=== PATIENT | female | born 1945 | race American Indian/Alaskan Native ===

== ENCOUNTER 2017-08-04 17:42 | Inpatient (IN) | payer MEDICARE, OTHER ==
[2017-08-04 17:43] VITALS: BMI 25.6
[2017-08-04] MEDS ORDERED: DiphenhydrAMINE 50 mg/ml Inj IVP STA (18:25)
[2017-08-04] MEDS ORDERED: Famotidine 20mg/50ml 20 MG/50 ML BAG IVPB STA (18:26)
--- NOTE | 2017-08-04 18:27 | ED PDOC ---
Arrival/HPI - General Chief Complaint: Abnormal Skin Integrity Time Seen by Provider: 08/04/17 18:23 Historian: Patient, Family (son) - History of Present Illness Narrative History of Present Illness (Text): 08/04/17 18:27 This 72 yo female with PMH htn, dm, s/p coronary stents, presents to this ED c/ o generalized rash, and b/l lower leg redness x 2 weeks. Patient right lower leg redness is painful. Patient admits rash is pruritic, and she has been scratching skin very often. Patient denies sob, cp, fever, recent travel, or sick contact. Time/Duration: Other (2 weeks) Context: Home Past Medical History - Provider Review Nursing Documentation Reviewed: Yes - Reproductive Menopause: Yes - Cardiac Hx Cardiac Disorders: Yes (S/P STENT) Hx Hypertension: Yes - Pulmonary Hx Bronchitis: Yes - Neurological Hx Neurological Disorder: No - HEENT Hx HEENT Disorder: Yes (GLAUCOMA) Hx Glaucoma: Yes - Renal Hx Renal Disorder: No - Endocrine/Metabolic Hx Diabetes Mellitus Type 2: Yes - Hematological/Oncological Hx Anemia: Yes Hx Blood Transfusions: Yes - Integumentary Hx Dermatological Disorder: No - Musculoskeletal/Rheumatological Hx Arthritis: Yes (BACK AND KNEE PAIN; NECK PAIN) - Gastrointestinal Hx Gastrointestinal Disorders: Yes (HEMORRHOIDS,CONSTIPATION) Hx Constipation: Yes - Genitourinary/Gynecological Hx Genitourinary Disorders: No - Psychiatric Hx Psychophysiologic Disorder: No Hx Substance Use: No - Surgical History Hx Hysterectomy: Yes - Anesthesia Hx Anesthesia: Yes Hx Anesthesia Reactions: No Family/Social History - Physician Review Nursing Documentation Reviewed: Yes Family/Social History: Other (non-contributory) Smoking Status: Smoker Currrent Status Unknown Hx Alcohol Use: No Hx Substance Use: No Allergies/Home Meds Allergies/Adverse Reactions: Allergies No Known Allergies Allergy (Verified 08/04/17 17:58) Home Medications: Home Meds Medication Instructions Recorded Confirmed Losartan Potassium [Cozaar] 100 mg PO DAILY 01/30/17 08/04/17 Omeprazole Magnesium [Prilosec Otc] 20 mg PO DAILY PRN 01/30/17 08/04/17 Rosuvastatin Calcium 10 mg PO HS 01/30/17 08/04/17 amLODIPine [Norvasc] 10 mg PO DAILY 01/30/17 08/04/17 cloNIDine [Catapres] 0.3 mg PO BID 01/30/17 08/04/17 Furosemide [Lasix] 20 mg PO DAILY 01/31/17 08/04/17 Review of Systems - Review of Systems Constitutional: Normal. absent: Fatigue, Weight Change, Fevers Eyes: Normal ENT: Normal Respiratory: Normal. absent: SOB, Cough Cardiovascular: Normal. absent: Chest Pain, Palpitations Gastrointestinal: Normal. absent: Abdominal Pain, Nausea, Vomiting Genitourinary Female: Normal. absent: Dysuria, Frequency, Hematuria Musculoskeletal: Normal Skin: Rash, Pruritis, Cellulitis Neurological: Normal. absent: Headache, Dizziness, Focal Weakness, Gait Changes , Speech Changes, Facial Droop, Disequilibrium Endocrine: Normal Hemo/Lymphatic: Normal Psychiatric: Normal Physical Exam Vital Signs Temp Pulse Resp BP Pulse Ox 08/04/17 19:54 98.1 F 08/04/17 19:53 80 20 180/65 H 99 08/04/17 18:10 99.4 F 88 20 180/72 H 100 Temperature: Afebrile Blood Pressure: Hypertensive Pulse: Regular Respiratory Rate: Normal Appearance: Positive for: Well-Appearing, Non-Toxic, Comfortable Pain Distress: None Mental Status: Positive for: Alert and Oriented X 3 - Systems Exam Head: Present: Atraumatic, Normocephalic Pupils: Present: PERRL Extroacular Muscles: Present: EOMI Conjunctiva: Present: Normal Mouth: Present: Moist Mucous Membranes Neck: Present: Normal Range of Motion Respiratory/Chest: Present: Clear to Auscultation, Good Air Exchange, Respiratory Distress. No: Accessory Muscle Use, Wheezes, Decreased Breath Sounds, Rales, Retracting, Rhonchi Cardiovascular: Present: Regular Rate and Rhythm, Normal S1, S2. No: Murmurs Abdomen: No: Tenderness Upper Extremity: Present: Normal Inspection, Normal ROM, NORMAL PULSES, Neurovascularly Intact, Capillary Refill < 2s Lower Extremity: Present: CALF TENDERNESS, NORMAL PULSES, Normal ROM, Tenderness , Swelling, Erythema, Temperature Abnormalties, Neurovascularly Intact, Capillary Refill < 2 s. No: Edema Neurological: Present: GCS=15, CN II-XII Intact, Speech Normal Skin: Present: Warm, Dry, Normal Color, Erythematous (b/l lower leg. r>l). No : Rashes Psychiatric: Present: Alert, Oriented x 3, Normal Insight, Normal Concentration Medical Decision Making ED Course and Treatment: 08/04/17 21:07 Dr. Ovalle spoke with Dr. Tobias covering physician for Dr. Vela regarding plan for observation admission. Re-evaluation Time: 21:00 Reassessment Condition: Re-examined, Improving,but remains with symptoms - Lab Interpretations Microbiology Results: Microbiology Results 08/04/17 18:30 Blood Blood Culture - Preliminary NO GROWTH AFTER 4 DAYS 08/04/17 18:00 Blood Blood Culture - Preliminary NO GROWTH AFTER 4 DAYS Lab Results: 08/06/17 06:39 08/06/17 06:39 Lab Results 08/06/17 11:48: Gastrin 68 08/06/17 11:48: Homocysteine 20.3 H, Sm (Ayala) Antibody <1.0, Anti-Ayala Interpret Negative, Double Strand DNA Ab <1 08/06/17 07:27: Methylmalonic Acid 196, Anti-Parietal Cell Ab Negative, Intrins Factor Block Ab Negative 08/06/17 07:00: Retic Count 1.17 08/06/17 06:39: Sodium 140, Chloride 110 H, Potassium 4.0, Carbon Dioxide 21, Anion Gap 13, BUN 15, Creatinine 1.4, Est GFR ( Amer) 44, Est GFR (Non- Af Amer) 37, Random Glucose 92, Calcium 8.8, Magnesium 1.7, Total Bilirubin 0.4 , Direct Bilirubin 0.3, AST 23, ALT 16, Alkaline Phosphatase 76, Total Protein 6.5, Albumin 3.3, Globulin 3.2, Albumin/Globulin Ratio 1.0 L 08/06/17 06:39: WBC 11.0, RBC 3.40 L, Hgb 8.8 L, Hct 27.0 L, MCV 79.4 L, MCH 25.9, MCHC 32.6, RDW 15.5 H, Plt Count 304, MPV 9.4, Gran % 74.2 H, Lymph % ( Auto) 14.5 L, [place] % (Auto) 5.5, Eos % (Auto) 5.7 H, Baso % (Auto) 0.1, Gran # 8.15 H, Lymph # 1.6, [place] # 0.6, Eos # 0.6, Baso # 0.01 08/05/17 17:55: WBC 11.5 H, RBC 3.54, Hgb 9.4 L, Hct 28.2 L, MCV 79.7 L, MCH 26.6, MCHC 33.3, RDW 15.0 H, Plt Count 331, MPV 9.0, Gran % 73.3 H, Lymph % ( Auto) 14.0 L, [place] % (Auto) 6.2 H, Eos % (Auto) 6.3 H, Baso % (Auto) 0.2, Gran # 8.43 H, Lymph # 1.6, [place] # 0.7 H, Eos # 0.7, Baso # 0.02 08/05/17 17:55: Hemoglobin A 97.1, Hemoglobin A2 1.9, Hemoglobin C 0.0, Hemoglobin F () <1.0, Hemoglobin S 0.0, Variant Hemoglobin 0.0, Hemoglobinopathy Red Blood Count 3.51 L, Hemoglobinopathy Hct 28.9 L, Hemoglobinopathy Hgb 9.6 L, Hemoglobinopathy MCV 82.2, Hemoglobinopathy MCH 27.2 , Hemoglobinopathy RDW 16.4 H, Hemoglobinopathy Interp See note 08/05/17 17:55: Free T3 pg/mL 3.50 08/05/17 17:55: Fructosamine 199 08/05/17 15:51: Erythropoietin 32.3 H 08/05/17 15:50: Urine Color Straw, Urine Appearance Clear, Urine pH 6.0, Ur Specific [place] 1.010, Urine Protein 30 H, Urine Glucose (UA) Negative, Urine Ketones Negative, Urine Blood Trace-lysed H, Urine Nitrate Negative, Urine Bilirubin Negative, Urine Urobilinogen 0.2, Ur Leukocyte Esterase Negative, Urine RBC 0 - 2, Urine WBC 0 - 2, Ur Epithelial Cells 4 - 5, Urine Bacteria Small 08/05/17 15:50: Stool Occult Blood Positive H 08/05/17 15:00: Sickle Cell Screen Negative 08/05/17 13:41: Hemoglobin A1c 6.6 H 08/05/17 13:20: Vitamin B12 299, Folate 6.4 08/05/17 13:14: Total Protein (PEP) 7.2, Albumin (PEP) 3.5 L, Lmhmh-4-Xrbavxqev 0.4 H, Nbagn-8-Njgypjiec 0.9, Morl-1-Flefbvvr 0.5, Eesk-6-Jktudeyp 0.5, Gamma Globulins 1.3, Abnorm Protein Band 1 TEST NOT PERFORMED, Abnorm Protein Band 2 TEST NOT PERFORMED, Abnorm Protein Band 3 TEST NOT PERFORMED, GOMEZ & SPEP Interp See note, Serum Immunofixation Detected H 08/05/17 12:44: Lactic Acid 1.5 08/05/17 12:44: Procalcitonin 0.06 L 08/05/17 07:00: Free T4 1.27, Thyroxine (T4) 9.0, Total T3 1.27 08/05/17 06:00: Sodium 142, Chloride 111 H, Potassium 3.4 L, Carbon Dioxide 21, Anion Gap 13, BUN 16, Creatinine 1.5 H, Est GFR ( Amer) 41, Est GFR (Non- Af Amer) 34, Random Glucose 109, Calcium 8.5, Total Bilirubin 0.2, AST 28, ALT 14, Alkaline Phosphatase 78, Total Protein 6.8, Albumin 3.4, Globulin 3.4, Albumin/Globulin Ratio 1.0 L 08/05/17 06:00: WBC 9.7, RBC 3.09 L, Hgb 7.9 L, Hct 24.4 L, MCV 79.0 L, MCH 25.6 , MCHC 32.4, RDW 15.7 H, Plt Count 399, MPV 9.6, Gran % 74.9 H, Lymph % (Auto) 12.0 L, [place] % (Auto) 6.7 H, Eos % (Auto) 6.2 H, Baso % (Auto) 0.2, Gran # 7.29 H, Lymph # 1.2, [place] # 0.7 H, Eos # 0.6, Baso # 0.02 08/04/17 22:30: pO2 33, VBG pH 7.41, VBG pCO2 35.0 L, VBG HCO3 22.2, VBG Total CO2 23.3, VBG O2 Sat (Calc) 74.3 H, VBG Base Excess -1.9 L, VBG Potassium 3.5 L , Sodium 140.0, Chloride 110.0 H, Glucose 95, Lactate 1.4, FiO2 21.0, Venous Blood Potassium 3.5 L 08/04/17 20:30: Blood Type A POSITIVE, Antibody Screen Negative, Crossmatch See Detail, BBK History Checked Patient has bt 08/04/17 18:30: PT 11.4, INR 1.06, APTT 32.1 H 08/04/17 18:30: C-React Prot High Sens > 15.00 H 08/04/17 18:30: pO2 46, VBG pH 7.34, VBG pCO2 45.0, VBG HCO3 24.3, VBG Total CO2 25.7, VBG O2 Sat (Calc) 87.3 H, VBG Base Excess -1.7 L, VBG Potassium 3.4 L , Sodium 138.0, Chloride 107.0, Glucose 137 H, Lactate 3.4 H, FiO2 21.0, Venous Blood Potassium 3.4 L 08/04/17 18:30: Sodium 141, Chloride 103, Potassium 3.7, Carbon Dioxide 24, Anion Gap 18, BUN 23 H, Creatinine 1.8 H, Est GFR ( Amer) 33, Est GFR ( Non-Af Amer) 28, Random Glucose 127 H, Calcium 9.4, Total Bilirubin 0.3, AST 35 , ALT 19, Alkaline Phosphatase 86, Total Protein 8.0, Albumin 4.2, Globulin 3.9 , Albumin/Globulin Ratio 1.1 08/04/17 18:30: WBC 10.2, RBC 3.45 L, Hgb 9.0 L, Hct 27.5 L, MCV 79.7 L, MCH 26.1, MCHC 32.7, RDW 15.6 H, Plt Count 436, MPV 9.2, Gran % 75.5 H, Lymph % ( Auto) 14.0 L, [place] % (Auto) 5.4, Eos % (Auto) 4.9, Baso % (Auto) 0.2, Gran # 7.69 H, Lymph # 1.4, [place] # 0.6, Eos # 0.5, Baso # 0.02, ESR 98 H 08/04/17 17:00: Hemoglobin A1c 6.7 H 08/04/17 17:00: Free T4 1.12, TSH 3rd Generation 1.95 08/04/17 17:00: Iron 34 L, TIBC 392, % Saturation 9 L 08/04/17 17:00: Uric Acid 10.8 H I have reviewed the lab results: Yes Interpretation: Abnormal lab values - RAD Interpretation Narrative RAD Interpretations (Text): 08/04/17 20:09 HISTORY: Leg pain and swelling. Evaluate for DVT PHYSICIAN(S): Roddy Ayala MD. TECHNIQUE: Duplex sonography and color-flow Doppler with graded compression were used to evaluate the deep venous systems of both lower extremities. FINDINGS: The visualized deep venous systems of both lower extremities are sonographically normal and compressible. Normal wave forms and augmentation are seen. There is no sonographic evidence for deep venous thrombosis in the visualized segments of both lower extremities. IMPRESSION: No sonographic evidence for deep venous thrombosis in the visualized segments of both lower extremities. Radiology Orders: 08/04/17 18:25 DUPLEX LOWER EXTRM VEIN BILAT [US] Stat 08/05/17 07:17 RENAL [US] Routine 08/05/17 08:14 FOOT LEFT 3 VIEWS ROUTINE [RAD] Urgent 08/05/17 10:33 LOWER EXT ART NON-INV COMPL [US] Routine 08/05/17 15:21 CHEST TWO VIEWS (PA/LAT) [RAD] Urgent - Medication Orders Current Medication Orders: Allopurinol (Zyloprim) 100 mg PO DAILY [facility] Last Admin: 08/09/17 10:02 Dose: 100 mg Amlodipine Besylate (Norvasc) 10 mg PO DAILY [facility] Last Admin: 08/09/17 10:01 Dose: 10 mg MAR Blood Pressure Document 08/09/17 10:01 SD (Rec: 08/09/17 10:[address] [id number]) Blood Pressure Blood Pressure (100/60-150/90) 145/88 Arformoterol Tartrate (Brovana) 15 mcg IH [id number] [facility] Last Admin: 08/09/17 07:26 Dose: Not Given Non-Admin Reason: Patient Refused Atorvastatin Calcium (Lipitor) 40 mg PO HS [facility] Last Admin: 08/08/17 21:58 Dose: 40 mg Budesonide (Pulmicort Respules) 0.5 mg IH [id number] [facility] Last Admin: 08/09/17 07:26 Dose: Not Given Non-Admin Reason: Patient Refused Clonidine HCl (Catapres) 0.3 mg PO BID [facility] Last Admin: 08/09/17 10:01 Dose: 0.3 mg Cyanocobalamin (Vitamin B12 1000 Mcg/Ml Inj) 1,000 mcg IM DAILY [facility] Stop: 08/15/17 10:01 Last Admin: 08/09/17 10:01 Dose: 1,000 mcg IM Administration Charges Document 08/09/17 10:01 SD (Rec: 08/09/17 10:[address] [id number]) Injection Site MAR Injection Site Left Arm Charges for Administration # of IM Administrations 1 Desoximetasone (Topicort 0.25%) 0 ea TOP BID [facility] Last Admin: 08/09/17 10:02 Dose: 1 applic Diphenhydramine HCl (Benadryl) 25 mg PO Q6 PRN PRN Reason: Itching / Pruritus Last Admin: 08/09/17 10:01 Dose: 25 mg Folic Acid (Folic Acid) 1 mg PO DAILY [facility] Last Admin: 08/09/17 10:02 Dose: 1 mg Heparin Sodium (Porcine) (Heparin) 5,000 units SC Q8 [facility] PRN Reason: Protocol Last Admin: 08/09/17 13:23 Dose: Not Given Non-Admin Reason: Patient Refused Lactic Acid (Lac-Hydrin 12% Cream (140 G)) 0 ea TOP TID [facility] Last Admin: 08/09/17 13:23 Dose: 1 applic Losartan Potassium (Cozaar) 100 mg PO DAILY [facility] Last Admin: 08/09/17 10:02 Dose: 100 mg Methimazole (Tapazole) 5 mg PO DAILY [facility] Last Admin: 08/09/17 10:01 Dose: 5 mg (Fluticasone/Vilanterol [Breo Ellipta 200-25 Mcg Inh] 1 Each) 1 each IH DAILY [facility] Last Admin: 08/09/17 10:02 Dose: Pantoprazole Sodium (Protonix Ec Tab) 40 mg PO ACBD [facility] Last Admin: 08/09/17 10:01 Dose: 40 mg Potassium Chloride (K-Dur 20 Meq Er Tab) 20 meq PO BRK [facility] Last Admin: 08/09/17 10:01 Dose: 20 meq Prednisone (Prednisone Tab) 40 mg PO ACB [facility] Stop: 08/11/17 07:31 Last Admin: 08/09/17 10:01 Dose: 40 mg Pyridoxine HCl (Vitamin B6 50 Mg Tab) 25 mg PO DAILY [facility] Last Admin: 08/09/17 10:13 Dose: 25 mg Discontinued Medications Acetaminophen (Tylenol 325mg Tab) 650 mg PO Q6H [facility] Stop: 08/06/17 14:31 Last Admin: 08/06/17 16:45 Dose: 650 mg MAR Pain/Vitals Document 08/06/17 16:45 Y (Rec: 08/06/17 16:45 [place] [id number]) Pain Reassessment Is This A Pain ReAssessment? No Sleep Is patient sleeping during reassessment? No Presence of Pain Presence of Pain No Atorvastatin Calcium (Lipitor) 40 mg PO DAILY [facility] Last Admin: 08/05/17 10:11 Dose: 40 mg Diphenhydramine HCl (Benadryl) 25 mg IVP STAT STA Stop: 08/04/17 18:26 Last Admin: 08/04/17 19:17 Dose: 25 mg IVP Administration Document 08/04/17 19:17 [place] (Rec: 08/04/17 19:17 [id number]) Charges for Administration # of IVP Administrations 1 Diphenhydramine HCl (Benadryl) 25 mg PO HS PRN PRN Reason: Insomnia Last Admin: 08/04/17 22:21 Dose: 25 mg Diphenhydramine HCl (Benadryl) 25 mg PO ONCE ONE Stop: 08/06/17 01:56 Last Admin: 08/06/17 02:25 Dose: 25 mg Diphenhydramine HCl (Benadryl) 25 mg IVP Q6H [facility] Stop: 08/06/17 14:31 Last Admin: 08/06/17 16:44 Dose: 25 mg IVP Administration Document 08/06/17 16:44 Y (Rec: 08/06/17 16:45 [place] [id number]) Charges for Administration # of IVP Administrations 1 Diphenhydramine HCl (Benadryl) 25 mg PO Q6 PRN PRN Reason: Itching / Pruritus Last Admin: 08/06/17 20:43 Dose: 25 mg Diphenhydramine HCl (Benadryl) 25 mg PO Q8 PRN PRN Reason: Itching / Pruritus Last Admin: 08/09/17 00:00 Dose: 25 mg Furosemide (Lasix) 20 mg PO DAILY [facility] Last Admin: 08/05/17 10:11 Dose: 20 mg MAR Blood Pressure Document 08/05/17 10:11 Y (Rec: 08/05/17 10:14 [place] [id number]) Blood Pressure Blood Pressure (100/60-150/90) 149/51 Furosemide (Lasix) 40 mg IVP ONCE ONE Stop: 08/07/17 06:55 Last Admin: 08/07/17 07:10 Dose: 40 mg MAR Blood Pressure Document 08/07/17 07:10 BR (Rec: 08/07/17 07:10 [id number] Blood Pressure Blood Pressure (100/60-150/90) 141/60 IVP Administration Document 08/07/17 07:10 BR (Rec: 08/07/17 07:10 [id number] Charges for Administration # of IVP Administrations 1 Hydroxyzine HCl (Atarax) 10 mg PO QID [facility] Last Admin: 08/05/17 10:11 Dose: 10 mg Hydroxyzine HCl (Atarax) 10 mg PO Q6H PRN PRN Reason: Anxiety Last Admin: 08/06/17 00:39 Dose: 10 mg Famotidine (Pepcid 20mg/50ml Premix) 20 mg in 50 mls @ 100 mls/hr IVPB STAT STA Stop: 08/04/17 18:55 Last Admin: 08/04/17 19:17 Dose: 100 mls/hr eMAR Start Stop Document 08/04/17 19:17 [place] (Rec: 08/04/17 19:[address] [id number]) Intravenous Solution Start Date 08/04/17 Start Time 19:17 Piperacillin Sod/Tazobactam Sod (Zosyn 4.5 Gm In Ns 100ml) 4.5 gm in 100 mls @ 200 mls/hr IVPB STAT STA PRN Reason: Protocol Stop: 08/04/17 20:22 Last Admin: 08/04/17 20:20 Dose: 200 mls/hr eMAR Start Stop Document 08/04/17 20:20 HI (Rec: 08/04/17 21:[address] [id number]) Intravenous Solution Start Date 08/04/17 Start Time 20:20 Vancomycin HCl (Vancomycin 1gm) 1 gm in 250 mls @ 167 mls/hr IVPB STAT STA PRN Reason: Protocol Stop: 08/04/17 21:34 Last Admin: 08/04/17 21:02 Dose: 167 mls/hr eMAR Start Stop Document 08/04/17 21:02 [place] (Rec: 08/04/17 21:03 [place] [facility] [id number][place] Intravenous Solution Start Date 08/04/17 Start Time 21:03 Sodium Chloride (Sodium Chloride 0.9%) 1,000 mls @ 999 mls/hr IV .Q1H1M STA Stop: 08/04/17 21:20 Last Admin: 08/04/17 21:03 Dose: 999 mls/hr eMAR Start Stop Document 08/04/17 21:03 HI (Rec: 08/04/17 21:[address] [id number]) Intravenous Solution Start Date 08/04/17 Start Time 21:03 Piperacillin Sod/Tazobactam Sod (Zosyn 3.375 In Ns 100ml) 100 mls @ 200 mls/hr IVPB Q6 [facility] PRN Reason: Protocol Stop: 08/05/17 06:29 Last Admin: 08/05/17 05:55 Dose: 200 mls/hr eMAR Start Stop Document 08/05/17 05:55 KT (Rec: 08/05/17 05:55 KT [id number]) Intravenous Solution Start Date 08/05/17 Start Time 06:00 End Date 08/05/17 End time 06:30 Total Infusion Time 30 Ceftriaxone Sodium (Rocephin 1 Gram Ivpb) 1 gm in 100 mls @ 100 mls/hr IVPB DAILY [facility] PRN Reason: Protocol Stop: 08/13/17 10:36 Last Admin: 08/09/17 10:00 Dose: 100 mls/hr eMAR Start Stop Document 08/09/17 10:00 SD (Rec: 08/09/17 10:01 [place] [facility] [id number][place] Intravenous Solution Start Date 08/09/17 Start Time 10:00 End Date 08/09/17 End time 10:30 Total Infusion Time 30 Potassium Chloride (Potassium Chloride 20 Meq/100 Ml) 20 meq in 100 mls @ 50 mls/hr IVPB Q2H [facility] Stop: 08/05/17 16:29 Last Admin: 08/05/17 21:32 Dose: 50 mls/hr eMAR Start Stop Document 08/05/17 21:32 KT (Rec: 08/05/17 21:32 [place] [facility] [id number]) Intravenous Solution Start Date 08/05/17 Start Time 21:35 End Date 08/05/17 End time 22:35 Total Infusion Time 60 Iron Sucrose 200 mg/ Sodium (Chloride) 110 mls @ 110 mls/hr IVPB DAILY [facility] Stop: 08/07/17 10:59 Last Admin: 08/07/17 10:26 Dose: 110 mls/hr eMAR Start Stop Document 08/07/17 10:26 SD (Rec: 08/07/17 10:[address] [id number]) Intravenous Solution Start Date 08/07/17 Start Time 11:30 End Date 08/07/17 End time 12:30 Total Infusion Time 60 Magnesium Sulfate 2 gm/ Sodium (Chloride) 104 mls @ 102 mls/hr IVPB Q3H [facility] Stop: 08/08/17 12:17 Last Admin: 08/08/17 12:51 Dose: 102 mls/hr eMAR Start Stop Document 08/08/17 12:51 SD (Rec: 08/08/17 12:[address] [id number]) Intravenous Solution Start Date 08/08/17 Start Time 12:51 End Date 08/08/17 End time 13:51 Total Infusion Time 60 Losartan Potassium (Cozaar) 100 mg PO ONCE ONE Stop: 08/04/17 21:58 Last Admin: 08/04/17 22:21 Dose: 100 mg Pantoprazole Sodium (Protonix Ec Tab) 40 mg PO ACB PRN PRN Reason: [place] Pantoprazole Sodium (Protonix Ec Tab) 40 mg PO ACB PRN PRN Reason: [place] Pantoprazole Sodium (Protonix Ec Tab) 40 mg PO ACB [facility] Last Admin: 08/08/17 08:34 Dose: Disposition/Present on Arrival - Present on Arrival Any Indicators Present on Arrival: No History of DVT/PE: No History of Uncontrolled Diabetes: No Urinary Catheter: No History of Decub. Ulcer: No History Surgical Site Infection Following: None - Disposition Have Diagnosis and Disposition been Completed?: Yes Diagnosis: Cellulitis of lower leg Disposition: HOSPITALIZED Disposition Time: 21:00 Patient Plan: Admission Patient Problems: Current Active Problems Problem Status Onset Cellulitis of lower leg Acute Condition: STABLE
[2017-08-04 18:46] LABS: BASO # 0.02 K/mm3 (0.0-2.0); BASO % 0.2 % (0.0-3.0); EOS # 0.5 (0.0-0.7); EOS % 4.9 % (1.5-5.0); GRAN # 7.69 (1.4-6.5); GRAN % 75.5 % (50.0-68.0); HEMATOCRIT 27.5 % (36.0-48.0); LYMPH # 1.4 (1.2-3.4); MEAN CELL VOLUME 79.7 fl (80.0-105.0); MEAN CORPUSCULAR HEMOGLOBIN 26.1 pg (25.0-35.0); MEAN CORPUSCULAR HGB CONC 32.7 g/dl (31.0-37.0); MEAN PLATELET VOLUME 9.2 fl (7.0-11.0); MONO # 0.6 (0.1-0.6); MONO % 5.4 % (1.0-6.0); RED CELL DISTRIBUTION WIDTH 15.6 % (11.5-14.5); WHITE BLOOD COUNT 10.2 10^3/ul (4.5-11.0)
[2017-08-04 18:54] LABS: VENOUS BLOOD GAS BASE EXCESS -1.7 mmol/L (0.0-2.0); VENOUS BLOOD PH 7.34 (7.32-7.43)
[2017-08-04 19:16] LABS: ALB/GLOB RATIO 1.1 (1.1-1.8); BILIRUBIN,TOTAL 0.3 mg/dL (0.2-1.3); CALCIUM 9.4 mg/dL (8.4-10.5); POTASSIUM 3.7 mmol/L (3.6-5.0)
[2017-08-04] MEDS ORDERED: Piperacill/Tazo 4.5gm in NS 4.5 GM/100 ML BAG IVPB STA (19:53)
[2017-08-04] MEDS ORDERED: Vancomycin 1gm in NS 250ml 1 GM/250 ML BAG IVPB STA (20:05)
[2017-08-04 20:15] LABS: INR 1.06 (0.93-1.08); PARTIAL THROMBOPLASTIN TIME 32.1 Seconds (23.7-30.8)
[2017-08-04] MEDS ORDERED: Sodium Chloride 0.9% 1,000 ML IV STA (20:20)
[2017-08-04] MEDS ORDERED: Pantoprazole 40 mg EC Tab PO PRN ×2 (21:52→21:54)
[2017-08-04 22:46] LABS: VENOUS BLOOD GAS BASE EXCESS -1.9 mmol/L (0.0-2.0); VENOUS BLOOD PH 7.41 (7.32-7.43)
[2017-08-04 22:53] LABS: IRON 34 ug/dL (45-180)
[2017-08-04 22:58] LABS: FREE T4 1.12 ng/dL (0.78-2.19)
[2017-08-04 23:12] LABS: THYROID STIMULATING HORMONE 1.95 mIU/mL (0.46-4.68)
[2017-08-05] MEDS: Piperacillin/Tazobact 3.375 gm 100 ML IVPB SCH ×2 (00:04→05:55)
[2017-08-05] MEDS ORDERED: Albuterol-Ipratrop 3 mg / 0.5 (3 ml) UD IH SCH (02:00)
[2017-08-05 06:33] LABS: BASO # 0.02 K/mm3 (0.0-2.0); BASO % 0.2 % (0.0-3.0); EOS # 0.6 (0.0-0.7); EOS % 6.2 % (1.5-5.0); GRAN # 7.29 (1.4-6.5); GRAN % 74.9 % (50.0-68.0); HEMATOCRIT 24.4 % (36.0-48.0); LYMPH # 1.2 (1.2-3.4); MEAN CORPUSCULAR HEMOGLOBIN 25.6 pg (25.0-35.0); MEAN CORPUSCULAR HGB CONC 32.4 g/dl (31.0-37.0); MEAN PLATELET VOLUME 9.6 fl (7.0-11.0); MONO # 0.7 (0.1-0.6); MONO % 6.7 % (1.0-6.0); RED CELL DISTRIBUTION WIDTH 15.7 % (11.5-14.5); WHITE BLOOD COUNT 9.7 10^3/ul (4.5-11.0)
[2017-08-05 06:35] LABS: BILIRUBIN,TOTAL 0.2 mg/dL (0.2-1.3); CALCIUM 8.5 mg/dL (8.4-10.5); POTASSIUM 3.4 mmol/L (3.6-5.0); TOTAL PROTEIN 6.8 g/dL (5.8-8.3)
[2017-08-05] MEDS: Budesonide 0.5 mg/2 ml Inhal Susp UD IH SCH ×2 (07:33→19:46)
[2017-08-05] MEDS: Arformoterol 15 mcg/2 ml Inh Sol IH SCH ×2 (07:33→19:46)
[2017-08-05] MEDS: Potassium Chloride 20 mEq ER Tab PO SCH (08:28)
--- NOTE | 2017-08-05 10:06 | US ---
PROCEDURE: Ultrasound of the Kidneys HISTORY: elevated creatinine COMPARISON: None available. TECHNIQUE: Sonogram of the kidneys. FINDINGS: RIGHT KIDNEY: Measures: 10.0 cm. Normal in size, contour with diffuse increased echogenicity. No stone, solid mass lesion or hydronephrosis visualized. LEFT KIDNEY: Measures: 9.4 cm. Normal in size, contour with diffuse increased echogenicity. No stone, solid mass lesion or hydronephrosis visualized. OTHER FINDINGS: None. IMPRESSION: Medical renal disease.
[2017-08-05] MEDS: methIMAzole 5 MG TAB PO SCH (10:11)
--- NOTE | 2017-08-05 10:24 | RAD ---
PROCEDURE: Left Foot Radiographs. HISTORY: left toe pain COMPARISON: None. FINDINGS: BONES: There is diffuse bone demineralization. There is no acute displaced fracture or bone destruction. Bone alignment is normal. JOINTS: Normal. SOFT TISSUES: Normal. OTHER FINDINGS: None. IMPRESSION: No acute fracture or dislocation.
[2017-08-05] MEDS: cefTRIAXone 1 gm 1 GM/100 ML BAG IVPB SCH (11:14)
--- NOTE | 2017-08-05 13:07 | CP.PCM.CON ---
History of Present Illness - History of Present Illness History of Present Illness: Hematology Consult Referred for anemia. HPI- Ms Murry is 72 y/o F with h/o HTN, DM, HLD, CAD s/p stent, hyperthyroid who was admitted with bilateral lower extremity rash and found to have cellulitis. Currently on antibiotics and her leg swelling is getting better. She has been afebrile here and cultures are pending. Her Hb and 9 on admission and found to be 7.9 today. She denies any bleeding. She is receiving 1 unit PRBC today. As per patient, she had endoscopic work up done in January 2017 and was unremarkable. She denies any h/o rectal bleed or bleeding elsewhere. She denies prior use of iron supplements. She feels weak and gets mild shortness of breath with exertion gentry with activity. Denies chest pain. her appetite is otherwise good and weight is stable. Family and Social history reviewed. Review of Systems - Review of Systems All systems: reviewed and no additional remarkable complaints except (as per HPI ) Past Patient History - Past Medical History & Family History Past Medical History?: Yes - Past Social History Smoking Status: Light Smoker < 10 Cigarettes Daily - CARDIAC Hx Cardiac Disorders: Yes (S/P STENT) Hx Hypertension: Yes - PULMONARY Hx Bronchitis: Yes - NEUROLOGICAL Hx Neurological Disorder: No - HEENT Hx HEENT Problems: Yes (GLAUCOMA) Hx Glaucoma: Yes - RENAL Hx Chronic Kidney Disease: No - ENDOCRINE/METABOLIC Hx Diabetes Mellitus Type 2: Yes - HEMATOLOGICAL/ONCOLOGICAL Hx Anemia: Yes - INTEGUMENTARY Hx Dermatological Problems: No - MUSCULOSKELETAL/RHEUMATOLOGICAL Hx Arthritis: Yes (BACK AND KNEE PAIN; NECK PAIN) Hx Falls: No - GASTROINTESTINAL Hx Gastrointestinal Disorders: Yes (HEMORRHOIDS,CONSTIPATION) - GENITOURINARY/GYNECOLOGICAL Hx Genitourinary Disorders: No - PSYCHIATRIC Hx Psychophysiologic Disorder: No - SURGICAL HISTORY Hx Hysterectomy: Yes - ANESTHESIA Hx Anesthesia: Yes Hx Anesthesia Reactions: No Meds Allergies/Adverse Reactions: Allergies Allergy/AdvReac Type Severity Reaction Status Date / Time No Known Allergies Allergy Verified 08/04/17 17:58 - Medications Medications: Current Medications Amlodipine Besylate (Norvasc) 10 mg PO DAILY [facility] Last Admin: 08/05/17 10:15 Dose: 10 mg Arformoterol Tartrate (Brovana) 15 mcg IH [id number] [facility] Last Admin: 08/05/17 07:33 Dose: 15 mcg Atorvastatin Calcium (Lipitor) 40 mg PO DAILY [facility] Last Admin: 08/05/17 10:11 Dose: 40 mg Budesonide (Pulmicort Respules) 0.5 mg IH [id number] [facility] Last Admin: 08/05/17 07:33 Dose: 0.5 mg Clonidine HCl (Catapres) 0.3 mg PO BID [facility] Last Admin: 08/05/17 10:15 Dose: 0.3 mg Hydroxyzine HCl (Atarax) 10 mg PO Q6H PRN PRN Reason: Anxiety Ceftriaxone Sodium (Rocephin 1 Gram Ivpb) 1 gm in 100 mls @ 100 mls/hr IVPB DAILY [facility] PRN Reason: Protocol Stop: 08/13/17 10:36 Last Admin: 08/05/17 11:14 Dose: 100 mls/hr Potassium Chloride (Potassium Chloride 20 Meq/100 Ml) 20 meq in 100 mls @ 50 mls/hr IVPB Q2H [facility] Stop: 08/05/17 16:29 Iron Sucrose 200 mg/ Sodium (Chloride) 110 mls @ 110 mls/hr IVPB DAILY [facility] Stop: 08/07/17 10:59 Losartan Potassium (Cozaar) 100 mg PO DAILY [facility] Last Admin: 08/05/17 10:15 Dose: 100 mg Methimazole (Tapazole) 5 mg PO DAILY [facility] Last Admin: 08/05/17 10:11 Dose: 5 mg Pantoprazole Sodium (Protonix Ec Tab) 40 mg PO ACB PRN PRN Reason: [place]TH[place]URN Potassium Chloride (K-Dur 20 Meq Er Tab) 20 meq PO BRK [facility] Last Admin: 08/05/17 08:28 Dose: 20 meq Physical Exam - Head Exam Head Exam: ATRAUMATIC, NORMAL INSPECTION - Eye Exam Eye Exam: EOMI, PERRL - ENT Exam ENT Exam: Mucous Membranes Moist - Neck Exam Neck exam: Negative for: Lymphadenopathy - Respiratory Exam Respiratory Exam: Clear to Auscultation Bilateral - Cardiovascular Exam Cardiovascular Exam: REGULAR RHYTHM - GI/Abdominal Exam GI & Abdominal Exam: Normal Bowel Sounds, Soft. absent: Organomegaly, Tenderness - Extremities Exam Extremities exam: Positive for: pedal edema Additional comments: mild erythema in RLE, non tender - Neurological Exam Neurological exam: Alert, Oriented x3 Results - Vital Signs Recent Vital Signs: Last Vital Signs Temp 98.5 F 09/24/17 12:22 Pulse 71 08/05/17 12:22 Resp 18 08/05/17 12:22 BP 125/56 L 08/05/17 12:22 Pulse Ox 98 08/05/17 07:00 - Labs Result Diagrams: 08/05/17 06:00 08/05/17 06:00 Labs: Laboratory Results - last 24 hr 08/04/17 08/04/17 08/05/17 20:30 22:30 06:00 WBC 9.7 RBC 3.09 L Hgb 7.9 L Hct 24.4 L MCV 79.0 L MCH 25.6 MCHC 32.4 RDW 15.7 H Plt Count 399 MPV 9.6 Gran % 74.9 H Lymph % (Auto) 12.0 L [place] % (Auto) 6.7 H Eos % (Auto) 6.2 H Baso % (Auto) 0.2 Gran # 7.29 H Lymph # 1.2 [place] # 0.7 H Eos # 0.6 Baso # 0.02 pO2 33 VBG pH 7.41 VBG pCO2 35.0 L VBG HCO3 22.2 VBG Total CO2 23.3 VBG O2 Sat (Calc) 74.3 H VBG Base Excess -1.9 L VBG Potassium 3.5 L Sodium 140.0 Chloride 110.0 H Glucose 95 Lactate 1.4 FiO2 21.0 Potassium Carbon Dioxide Anion Gap BUN Creatinine Est GFR ( Amer) Est GFR (Non-Af Amer) Random Glucose Calcium Total Bilirubin AST ALT Alkaline Phosphatase Total Protein Albumin Globulin Albumin/Globulin Ratio Venous Blood Potassium 3.5 L Blood Type A POSITIVE Antibody Screen Negative Crossmatch See Detail BBK History Checked Patient has bt 08/05/17 06:00 WBC RBC Hgb Hct MCV MCH MCHC RDW Plt Count MPV Gran % Lymph % (Auto) [place] % (Auto) Eos % (Auto) Baso % (Auto) Gran # Lymph # [place] # Eos # Baso # pO2 VBG pH VBG pCO2 VBG HCO3 VBG Total CO2 VBG O2 Sat (Calc) VBG Base Excess VBG Potassium Sodium 142 Chloride 111 H Glucose Lactate FiO2 Potassium 3.4 L Carbon Dioxide 21 Anion Gap 13 BUN 16 Creatinine 1.5 H Est GFR ( Amer) 41 Est GFR (Non-Af Amer) 34 Random Glucose 109 Calcium 8.5 Total Bilirubin 0.2 AST 28 ALT 14 Alkaline Phosphatase 78 Total Protein 6.8 Albumin 3.4 Globulin 3.4 Albumin/Globulin Ratio 1.0 L Venous Blood Potassium Blood Type Antibody Screen Crossmatch BBK History Checked Assessment & Plan - Assessment and Plan (Free Text) Assessment: Microcytic anemia with iron deficiency. No evidence of blood loss and prior endoscopic work up had been unremarkable. She also has mild renal disease that could contribute. I will repeat stool guaiac. Consider GI follow up. Start IV Venofer 200 mg daily for 3-4 doses. Monitor for bleeding. Will also check other routine anemia work up including VitB12, Folate levels, SPEP, SIFE. She should continue iron supplements as outpatient. I discussed different alternatives with her. She would like to try oral iron for now and later switch to IV iron if she could not tolerate She could be started on ferrous sulfate 325 mg PO once daily at discharge. Follow up outpatient in 1 week of discharge. Thank you for the consult Blaise Westbrook MD - Date & Time Date: 08/05/17 Time: 13:07
[2017-08-05 15:36] LABS: FREE T4 1.27 ng/dL (0.78-2.19)
[2017-08-05 15:49] LABS: T3 1.27 ng/mL (0.97-1.69)
[2017-08-05 16:16] LABS: URINE BILIRUBIN NEGATIVE (NEGATIVE); URINE BLOOD TRACE-LYSED (NEGATIVE); URINE GLUCOSE (UA) NEGATIVE (NEGATIVE); URINE KETONE NEGATIVE (NEGATIVE); URINE LEUKOCYTE ESTERASE NEGATIVE Leu/uL (NEGATIVE); URINE PROTEIN 30 mg/dL (<30 mg/dL); URINE UROBILINOGEN 0.2 E.U./dL (<1 E.U./dL)
[2017-08-05 16:17] LABS: URINE APPEARANCE CLEAR (CLEAR); URINE COLOR STRAW (YELLOW)
[2017-08-05 16:34] LABS: URINE BACTERIA SMALL (NEG); URINE RBC 0 - 2 /hpf (0-2); URINE WBC 0 - 2 /hpf (0-6)
[2017-08-05 17:49] LABS: FOLATE 6.4 ng/mL
[2017-08-05 18:03] LABS: BASO # 0.02 K/mm3 (0.0-2.0); BASO % 0.2 % (0.0-3.0); EOS # 0.7 (0.0-0.7); EOS % 6.3 % (1.5-5.0); GRAN # 8.43 (1.4-6.5); GRAN % 73.3 % (50.0-68.0); HEMATOCRIT 28.2 % (36.0-48.0); LYMPH # 1.6 (1.2-3.4); MEAN CELL VOLUME 79.7 fl (80.0-105.0); MEAN CORPUSCULAR HEMOGLOBIN 26.6 pg (25.0-35.0); MEAN CORPUSCULAR HGB CONC 33.3 g/dl (31.0-37.0); MONO # 0.7 (0.1-0.6); MONO % 6.2 % (1.0-6.0); WHITE BLOOD COUNT 11.5 10^3/ul (4.5-11.0)
[2017-08-05] MEDS: Ammonium Lactate 12% Cream (140 g) TOP SCH ×2 (18:20→18:30)
--- NOTE | 2017-08-05 18:35 | US ---
HISTORY: Leg pain and swelling. Evaluate for DVT PHYSICIAN(S): Roddy Ayala MD. TECHNIQUE: Duplex sonography and color-flow Doppler with graded compression were used to evaluate the deep venous systems of both lower extremities. FINDINGS: The visualized deep venous systems of both lower extremities are sonographically normal and compressible. Normal wave forms and augmentation are seen. There is no sonographic evidence for deep venous thrombosis in the visualized segments of both lower extremities. IMPRESSION: No sonographic evidence for deep venous thrombosis in the visualized segments of both lower extremities.
--- NOTE | 2017-08-05 21:19 | PN ---
DATE: 08/05/2017 LOCATION: The patient is seen in room 562, bed 2. The patient was admitted yesterday by Dr. Luis. The patient's ER visit notes and patient care notes were reviewed. The patient is seen lying in bed in room 562, bed 2. The patient presented to the emergency room. According to the triage notes, bilateral lower extremity rash. The patient was evaluated by the physician events and promotions assistant. The patient presented with lower extremity rash and redness of the lower extremity for the right last 2 weeks. PHYSICAL EXAMINATION: VITAL SIGNS: T-max is 98.5; heart rate 68 to 74; blood pressure 146/66, 120/58, 149/51; respiration 18; O2 sat is 98% to 100%. HEAD: Normocephalic, atraumatic. HEENT: Shows pale conjunctivae, anicteric sclerae. No oropharyngeal lesion. NECK: No neck rigidity. CHEST: Kyphosis. LUNGS: Shows no rales, crackles or wheezing. CARDIOVASCULAR: S1 and S2. Regular rhythm. Questionable soft systolic murmur left sternal border, right second intercostal space. ABDOMEN: Soft. Positive bowel sounds. Nontender. GENITALIA: Female. RECTAL: Deferred. EXTREMITY: Shows bilateral lower extremity dry scaling erythema of the lower extremity. VASCULAR: Palpable pulses. MUSCULOSKELETAL: Shows a body mass index of 24. NEUROLOGIC: The patient is alert, awake, oriented x3. Cranial nerves II through XII intact. Gait examination is not tested. DIAGNOSTICS: On 08/05, WBC 9.7, hemoglobin and hematocrit 7.9 and 24.4, MCV 79, platelet 399, granulocytes 75. ESR 98. The patient's lactate is now down to 1.4 on VBG. Significant chemistry; abnormal chemistries are potassium 3.4, creatinine 1.5, lactic acid 1.5. LFTs are normal. The patient's complete thyroid panel is pending, uric acid 10.8, iron 34, TIBC 392, saturation 9. Blood type A+. The patient seen by Dr. Luis, ordered blood transfusion. X-ray of the foot, bony demineralization, no fracture. Renal ultrasound done today reading shows medical renal disease. Lower extremity ultrasound was negative for DVT. IMPRESSION AND PLAN: 1. Questionable bilateral lower extremity cellulitis. 2. History of microcytic anemia with iron deficiency. 3. History of hypertension. 4. History of hyperthyroidism, on Tapazole. 5. Questionable history of chronic obstructive pulmonary disease and history of smoking. 6. Granulocytosis. 7. Elevated erythrocyte sedimentation rate of 98. 8. Lactic acidosis. 9. Hypokalemia. 10. Acute kidney injury with underlying chronic kidney disease stage III. 11. Hyperuricemia. 12. Iron-deficiency anemia. 13. History of type 2 diabetes. 14. History of dyslipidemia. 15. History of coronary artery disease, angioplasty placement. 16. History of coronary angioplasty. 17. History of constipation and hemorrhoids. 18. History of glaucoma. 19. History of arthritis of the back, knee, and neck. 20. History of hysterectomy. 21. History of medical renal kidney disease. 22. Diffuse bony demineralization of the feet. PLAN: At this time, the patient has been ordered thyroid panel, hemoglobin A1c, vitamin B12, CMP, LFT, and magnesium. The patient has been ordered repeat labs. The patient has been ordered erythropoietin, hemoglobin, electrophoresis, sickle cell, serum immunofixation, and protein electrophoresis ordered. Blood cultures ordered. The patient was consulted with Gastroenterology, Infectious Disease, Hematology/Oncology and Podiatry. Case referred for TCU and case management. The patient has been ordered transfusion of PRBC by Dr. Luis and ca. The patient has been ordered procalcitonin level. CURRENT MEDICATIONS: 1. Atarax 10 mg q. 6 p.r.n. 2. Brovana 15 mcg q. 12. 3. Clonidine 0.3 mg twice a day. 4. Cozaar 100 mg daily. 5. Breo Ellipta 1 inhalation daily. 6. Heparin 5000 subcu q. 8. 7. Venofer 200 mg IV daily x3. 8. The patient has been started on potassium supplementation Lac-Hydrin lotion to both legs and feet. 9. Lipitor 40 mg daily. 10. Norvasc 10 mg daily. 11. The patient has been given potassium riders x2. 12. Protonix 40 mg daily. 13. Pulmicort nebulizer 0.5 mg q. 12 hours. 14. The patient is on Rocephin 1 g IV daily. 15. Tapazole 5 mg daily. 16. The patient received vancomycin 1 g in the ER and Zosyn 4.5 g in the ER yesterday. 17. The patient started on allopurinol 100 mg daily. Chest x-ray PA and lateral ordered. The patient's arterial venous Doppler pending. EKG pending. The patient has been ordered out of bed, occupational therapy, physical therapy, stool occult blood. The patient's previous visits were reviewed. The patient's past medical history is significant for anemia according to the patient. She underwent endoscopy and colonoscopy in 01/2017. The patient also has history of coronary artery disease and coronary angioplasty. The patient's review of previous data, the patient had an myocardial infarction in 2011 and in 2011, and the patient was admitted to [facility]. The patient's stool for occult blood was negative in 01/2017. PAST MEDICAL HISTORY: Also significant for emphysema, history of cholelithiasis, hiatal hernia, and distal esophageal thickening. History of thyroid nodule, history is also significant for colonoscopy done in 01/2017 which shows diverticulosis and colonic polyp and tubulovillous adenoma. The patient's last echocardiogram done in 01/2017 shows ejection fraction of 50% with concentric left ventricular hypertrophy, history of mildly sclerotic aortic valve, tricuspid aortic valve, moderate mitral regurgitation, moderate tricuspid regurgitation with right ventricular systolic pressure of 50 to 60 mmHg and moderate to severe pulmonary arterial hypertension. Also, history is significant for history of patent stent and right coronary artery, history of 30% stenosis of the left main, patent stent in LAD and midportion. The patient had history of an angioplasty and stent placement in 03/2017 with angioplasty and stent placement of the mid RCA. Also significant for endoscopy done in 01/2017 shows [place] grade A esophagitis without bleeding and a large hiatal hernia. History of ascending colon diverticulosis, mid sigmoid colon polyp with polypectomy, of history of nonbleeding hemorrhoids. History is significant for coronary artery disease, coronary angioplasty, angina, history of anemia, packed red blood cell transfusion. At present, the patient was extensively explained about the details of her medical condition. For present hospitalization, the patient was advised need for further diagnostic therapeutic intervention which she acknowledged and understood. Dictated and electronically signed, not read. Phil Vela MD
--- NOTE | 2017-08-05 22:37 | CON ---
DATE: 08/05/2017 The patient is seen earlier today in room #562, bed #2. CHIEF COMPLAINT: Lower extremity edema and erythema from several days. HISTORY OF PRESENT ILLNESS: This is a 72-year-old female with past medical history significant for hypertension, coronary artery disease, cardiac stents with lower extremity edema and history of bronchitis in the past and glaucoma, history of hemorrhoids, who was admitted with bilateral lower extremity edema and erythema. The patient denies any fevers, any chills. No chest pain and no abdominal pain, diarrhea or constipation. She denies any shortness of breath, fevers or chills. No dysuria or frequency. PAST MEDICAL HISTORY: Significant for hypertension, coronary artery disease, bronchitis, glaucoma and hemorrhoids. She is still a long-time smoker. The nursing's note states the patient has diabetes; however, the patient denies any diabetes. PAST SURGICAL HISTORY: Significant for cardiac stent placement and hysterectomy. ALLERGIES: THE PATIENT HAS NO KNOWN ALLERGIES. MEDICATIONS AT HOME: Include; Catapres, Norvasc, rosuvastatin, omeprazole, Tapazole, losartan, Lasix and inhaler. PHYSICAL EXAMINATION: GENERAL: The patient is in bed, answering questions appropriate, awake and alert. VITAL SIGNS: Temperature of 98, blood pressure is 130/50, respiratory rate of 20 and heart rate of 76. HEENT: Unremarkable. NECK: Supple. LUNGS: Has decreased breath sounds. HEART: Normal S1 and S2. ABDOMEN: Soft and nontender. No organomegaly. No rebound. No guarding. No masses. LABORATORY DATA: Reveals a white count of 10.2, hemoglobin of 9 and platelet of 436. The patient's sed rate is 98, coagulation is noted, gases are noted. BUN of 23, creatinine of 1.8, last creatinine of January was 1.1. The patient had an x-ray of the foot, it showed no fractures or dislocation. The patient had a renal ultrasound, medical renal disease. The patient had an ultrasound the extremities, no results are available. In addition to the physical examination, the patient does have chronic changes of the lower extremities, there is mild erythema of the right ankle and no break in the skin. ASSESSMENT AND PLAN: A 72-year-old female with hypertension, coronary artery disease, bronchitis, glaucoma, hemorrhoids in the past, history of cardiac stents and hysterectomy, admitted with mild right leg cellulitis with acute kidney injury on top of chronic kidney injury, was given vancomycin and Zosyn in the emergency room. We will start ceftriaxone and we will order arterial dopplers, rule-out underlying peripheral artery disease and recommend podiatric care and vascular consultation. We will also order a hemoglobin A1c, and we will make further recommendations upon availability of initial results and a urinalysis to evaluate renal evaluation. We will follow with you. Dr. Huizar has already ordered hemoglobin A1c. Salvador Rosales MD
[2017-08-06 06:53] LABS: BASO # 0.01 K/mm3 (0.0-2.0); BASO % 0.1 % (0.0-3.0); EOS # 0.6 (0.0-0.7); EOS % 5.7 % (1.5-5.0); GRAN # 8.15 (1.4-6.5); GRAN % 74.2 % (50.0-68.0); LYMPH # 1.6 (1.2-3.4); LYMPH % 14.5 % (22.0-35.0); MEAN CELL VOLUME 79.4 fl (80.0-105.0); MEAN CORPUSCULAR HEMOGLOBIN 25.9 pg (25.0-35.0); MEAN CORPUSCULAR HGB CONC 32.6 g/dl (31.0-37.0); MEAN PLATELET VOLUME 9.4 fl (7.0-11.0); MONO # 0.6 (0.1-0.6); MONO % 5.5 % (1.0-6.0); RED CELL DISTRIBUTION WIDTH 15.5 % (11.5-14.5)
[2017-08-06 07:16] LABS: BILIRUBIN,DIRECT 0.3 mg/dL (0.0-0.4); BILIRUBIN,TOTAL 0.4 mg/dL (0.2-1.3); CALCIUM 8.8 mg/dL (8.4-10.5); MAGNESIUM 1.7 mg/dL (1.7-2.2); TOTAL PROTEIN 6.5 g/dL (5.8-8.3)
[2017-08-06] MEDS: Arformoterol 15 mcg/2 ml Inh Sol IH SCH ×2 (08:28→19:45)
[2017-08-06] MEDS: Budesonide 0.5 mg/2 ml Inhal Susp UD IH SCH ×2 (08:29→19:45)
--- NOTE | 2017-08-06 08:34 | HP ---
HISTORY OF PRESENT ILLNESS: The patient is a 72-year-old female. She is seen in the emergency room with presentation of rash on both legs. She says, she is very uncomfortable, unable to sleep, and she came for attention to the emergency room. The patient was evaluated in the emergency room, and she was concerned regarding the nature of the progression of the skin rash. PAST MEDICAL HISTORY: Significant that the patient has history of coronary artery disease, has multiple stents. The patient has history of hyperlipidemia and hypertension. The patient has history of gastritis and chronic obstructive lung disease. The patient also has history of hyperthyroidism. The patient has had hospitalization at [facility] in the past. She does not have any DNR orders. ALLERGIES: SHE HAD NO KNOWN ALLERGIES FAR MEDICATIONS ARE CONCERNED. The patient has been treated with vancomycin in the past. She has had medical treatment and blood transfusion in the past according to the history. The patient has past history of hyperthyroidism also as mentioned. The patient is comfortable, accepting the fact that she has *------* from the rash to the leg, and clinically the patient has cellulitis of the leg. The patient is admitted to the hospital, and she was placed on antibiotics at this time. She will be put on vancomycin, the suspicion the patient *------* infection of the skin. REVIEW OF SYSTEMS: The patient has had no history of cardiovascular problem. She has had no history of cerebrovascular problems. She has history of chronic lung disease. PHYSICAL EXAMINATION: GENERAL: The patient is seen, she is conscious and comfortable, pleasant. Answers all questions. VITAL SIGNS: Pulse is 80, blood pressure 180/65, respirations are 20, and O2 saturation 100% on room air. The patient's temperature is 98.1, but there is a recording that says the patient's temperature was 99.4 on admission. HEAD: Head is normocephalic. NECK: Thyroid is not enlarged. Neck does not present any lymph nodes. The JVP is flat. Carotid pulses are present. LUNGS: Trachea is central. Breath sounds are vesicular. No adventitious sounds. HEART: Normal sinus rhythm. S1 and S2 present. No murmurs. No cardiac rubs. ABDOMEN: Soft. Liver and spleen not palpable. No focal neurological deficits are noted. MEDICATIONS: The patient's past medications consists of clonidine 0.3 mg b.i.d. The patient is on amlodipine 10 mg daily. The patient was on Crestor 10 mg daily, Prilosec 20 mg daily, Tapazole 5 mg daily, losartan 100 mg daily, Lasix 20 mg daily, and also the patient is on Breo Ellipta once a day 200/25 for chronic lung disease. The parliamentary counsel *------* is in [place] and the patient will be evaluated and treated for the cellulitis of both legs. LABORATORY DATA: The patient's blood work, CBC showed white count of 10,200, hemoglobin 9.0 with the shift to the left with granulocyte count of 75,000. The patient's chemistry; sodium is 141, BUN is 23, and creatinine 1.8. The patient's sugar is 127. The patient's other chemical parameters are within normal limit. The patient will be placed on medical floor and the patient's diet will be heart healthy diabetic diet. Calorie count would be 1800 calories. Rosi Luis MD
[2017-08-06] MEDS: Potassium Chloride 20 mEq ER Tab PO SCH (08:44)
[2017-08-06] MEDS: Pantoprazole 40 mg EC Tab PO SCH (08:44)
--- NOTE | 2017-08-06 09:31 | CP.PCM.PN ---
<XIAO STOKES - Last Filed: 08/06/17 13:27> Subjective - Date & Time of Evaluation Date of Evaluation: 08/06/17 Time of Evaluation: 09:26 - Subjective Subjective: Medicine Progress Note: Pt seen and examined at bedside. Patient denies any acute overnight events. Patient states that she feels itchy all over; medications only provides temporary relief. Pt states LLE swelling and pain have improved, but is still present. Patient also complains of and left MTP pain. Pt is OOB to restroom. Pt denies N/V/D, fever, chills, CP, SOB, constipation, dysuria, or abdominal pain. Objective - Vital Signs/Intake and Output Vital Signs (last 24 hours): Temp Pulse Resp BP Pulse Ox 98.2 F 68 20 140/56 L 96 08/06/17 07:30 08/06/17 07:30 08/06/17 07:30 08/06/17 07:30 08/06/17 07:30 Intake and Output: 08/06/17 08/06/17 06:59 18:59 Intake Total 1480 Balance 1480 - Medications Medications: Current Medications Acetaminophen (Tylenol 325mg Tab) 650 mg PO Q6H [facility] Stop: 08/06/17 14:31 Allopurinol (Zyloprim) 100 mg PO DAILY [facility] Last Admin: 08/05/17 15:29 Dose: 100 mg Amlodipine Besylate (Norvasc) 10 mg PO DAILY [facility] Last Admin: 08/05/17 10:15 Dose: 10 mg Arformoterol Tartrate (Brovana) 15 mcg IH [id number] [facility] Last Admin: 08/06/17 08:28 Dose: 15 mcg Atorvastatin Calcium (Lipitor) 40 mg PO HS [facility] Budesonide (Pulmicort Respules) 0.5 mg IH [id number] [facility] Last Admin: 08/06/17 08:29 Dose: 0.5 mg Clonidine HCl (Catapres) 0.3 mg PO BID [facility] Last Admin: 08/05/17 18:16 Dose: 0.3 mg Cyanocobalamin (Vitamin B12 1000 Mcg/Ml Inj) 1,000 mcg IM DAILY [facility] Stop: 08/15/17 10:01 Diphenhydramine HCl (Benadryl) 25 mg IVP Q6H [facility] Stop: 08/06/17 14:31 Diphenhydramine HCl (Benadryl) 25 mg PO Q6 PRN PRN Reason: Itching / Pruritus Folic Acid (Folic Acid) 1 mg PO DAILY [facility] Heparin Sodium (Porcine) (Heparin) 5,000 units SC Q8 [facility] PRN Reason: Protocol Last Admin: 08/06/17 06:07 Dose: 5,000 units Hydroxyzine HCl (Atarax) 10 mg PO Q6H PRN PRN Reason: Anxiety Last Admin: 08/06/17 00:39 Dose: 10 mg Ceftriaxone Sodium (Rocephin 1 Gram Ivpb) 1 gm in 100 mls @ 100 mls/hr IVPB DAILY [facility] PRN Reason: Protocol Stop: 08/13/17 10:36 Last Admin: 08/05/17 11:14 Dose: 100 mls/hr Iron Sucrose 200 mg/ Sodium (Chloride) 110 mls @ 110 mls/hr IVPB DAILY [facility] Stop: 08/07/17 10:59 Last Admin: 08/06/17 09:10 Dose: 110 mls/hr Lactic Acid (Lac-Hydrin 12% Cream (140 G)) 0 ea TOP TID [facility] Last Admin: 08/05/17 18:30 Dose: Not Given Losartan Potassium (Cozaar) 100 mg PO DAILY [facility] Last Admin: 08/05/17 10:15 Dose: 100 mg Methimazole (Tapazole) 5 mg PO DAILY [facility] Last Admin: 08/05/17 10:11 Dose: 5 mg (Fluticasone/Vilanterol [Breo Ellipta 200-25 Mcg Inh] 1 Each) 1 each IH DAILY [facility] Last Admin: 08/05/17 18:19 Dose: Not Given Pantoprazole Sodium (Protonix Ec Tab) 40 mg PO ACB [facility] Last Admin: 08/06/17 08:44 Dose: 40 mg Potassium Chloride (K-Dur 20 Meq Er Tab) 20 meq PO BRK [facility] Last Admin: 08/06/17 08:44 Dose: 20 meq - Labs Labs: 08/06/17 06:39 08/06/17 06:39 PT 11.4 Seconds (9.9-11.8) 08/04/17 18:30 INR 1.06 (0.93-1.08) 08/04/17 18:30 APTT 32.1 Seconds (23.7-30.8) H 08/04/17 18:30 - Constitutional Appears: No Acute Distress - Head Exam Head Exam: ATRAUMATIC, NORMOCEPHALIC - Eye Exam Eye Exam: EOMI, PERRL - ENT Exam ENT Exam: Mucous Membranes Moist - Neck Exam Neck Exam: Full ROM - Respiratory Exam Respiratory Exam: Clear to Ausculation Bilateral. absent: Rales, Rhonchi, Wheezes - Cardiovascular Exam Cardiovascular Exam: RRR. absent: Gallop, Rubs, Murmur - GI/Abdominal Exam GI & Abdominal Exam: Soft. absent: Distended, Guarding, Tenderness, Rebound - Extremities Exam Extremities Exam: Normal Capillary Refill, Tenderness Additional comments: LLE swelling, TTP to palpation, Left MTP TTP on dorsal aspect, PT/DP pulses intact, sensation intact - Neurological Exam Neurological Exam: Alert, Awake, Oriented x3 - Psychiatric Exam Psychiatric exam: Normal Affect, Normal Mood - Skin Skin Exam: Dry, Intact, Rash (scaling, non-erythematous B/L LE) Assessment and Plan - Assessment and Plan (Free Text) Assessment: 72 yo female with PMH of CAD with multiple stents, hyperlipidemia, HTN, COPD, and hyperthyroidism is being evaluated and treated for possible B/L LE cellulitis, iron deficiency anemia, and possible PAD. Plan: 1. Questionable B/L LE cellultis - ID consulted - Cont Ceftriaxone 1 gm IVPB day 2 - Benadryl PRN, hydroxyzine PRN for pruritis - US B/L LE negative, F/U repeat US - Procal WNL - Case referred for TCU and case management 2. Iron-deficiency Anemia - Heme consulted recommended Venofer daily - GI consulted for Iron def anemia and positive HOBT - Endoscopic workup in January 2017 normal - Hgb 8.8 today - B12 and Folate levels low normal - F/U anemia workup - F/U autoimmune workup - Transfuse 2 pRBC, f/u CBC for appropriate response; 1 unit pRBC transfused on 08/05/17 3. Possible Peripheral Artery Disease - Podiatry consulted - ID consulted - F/U HA1c - Left foot x-ray negative 4. Acute Renal Injury, H/O CKD stage III - Cr 1.4 - Renal US showed medical renal disease - Cont to monitor - Avoid nephrotoxic medications 5. Hyperuricemia - Cont Allopurinol 6. Hypokalemia, resolved - K-Dur 20 meq PO daily - Cont to monitor, replete as needed 7. H/O HTN - Cont Norvasc, Cozaar, and Clonidine 8. H/O Dyslipidemia - Cont Lipitor 9. H/O COPD - Cont Brovana, Budesonide 10. H/O Hyperthyroidism - Cont Methimazole - TSH, Free T4 WNL GI/DVT PPx - Protonix - HSQ Pt seen and discussed in detail with Dr. Vela. Manuel Stokes PGY1 <Phil Vela U - Last Filed: 08/11/17 08:59> Objective - Vital Signs/Intake and Output Vital Signs (last 24 hours): Temp Pulse Resp BP Pulse Ox 98.4 F 65 18 135/58 L 95 08/10/17 07:58 08/10/17 11:25 08/10/17 07:58 08/10/17 11:25 08/10/17 07:58 - Labs Labs: 08/10/17 06:00 08/10/17 06:00 PT 11.4 Seconds (9.9-11.8) 08/04/17 18:30 INR 1.06 (0.93-1.08) 08/04/17 18:30 APTT 32.1 Seconds (23.7-30.8) H 08/04/17 18:30 Attending/Attestation - Attestation I have personally seen and examined this patient.: Yes I have fully participated in the care of the patient.: Yes I have reviewed all pertinent clinical information, including history, physical exam and plan: Yes
[2017-08-06] MEDS: cefTRIAXone 1 gm 1 GM/100 ML BAG IVPB SCH (10:31)
[2017-08-06] MEDS: methIMAzole 5 MG TAB PO SCH (10:32)
[2017-08-06] MEDS: Ammonium Lactate 12% Cream (140 g) TOP SCH ×3 (10:33→17:49)
[2017-08-06] MEDS: DiphenhydrAMINE 50 mg/ml Inj IVP SCH ×2 (11:52→16:44)
[2017-08-06 12:12] LABS: RETIC% 1.17 % (0.5-1.5)
[2017-08-06 12:18] LABS: HEMATOCRIT 28.9 % (35.0-45.0); HEMOGLOBIN 9.6 g/dL (11.7-15.5); RDW 16.4 % (11.0-15.0)
--- NOTE | 2017-08-06 14:59 | RAD ---
HISTORY: HTN COMPARISON: No prior. TECHNIQUE: Chest PA and lateral FINDINGS: In the mid to lower thoracic region LUNGS: Interstitial markings are somewhat increased and coarsened. There also mild right basilar atelectatic changes as well. Developing lower lobe infiltrate could be excluded with followup radiographs. Small rounded nodular density right lung apex may represent a tiny granuloma. Follow-up chest radiograph in 2 month interval could be performed to assess stability. PLEURA: No significant pleural effusion identified. No pneumothorax apparent. CARDIOVASCULAR: Heart size is mildly enlarged. OSSEOUS STRUCTURES: Mild multilevel degenerative spondylosis of the thoracic spine. Additionally, there appears to be a scoliotic deformity VISUALIZED UPPER ABDOMEN: Normal. OTHER FINDINGS: None. IMPRESSION: Interstitial markings are somewhat increased and coarsened. There also mild right basilar atelectatic changes as well. Developing lower lobe infiltrate could be excluded with followup radiographs. Small rounded nodular density right lung apex may represent a tiny granuloma. Follow-up chest radiograph in 2 month interval could be performed to assess stability. . Mild cardiomegaly.
--- NOTE | 2017-08-06 15:54 | CP.PCM.PN ---
Subjective - Date & Time of Evaluation Date of Evaluation: 08/06/17 Time of Evaluation: 11:55 - Subjective Subjective: Comfortable, not in distress, afebrile. Still with some itching in the right leg but less pain. Objective - Vital Signs/Intake and Output Vital Signs (last 24 hours): Temp Pulse Resp BP Pulse Ox 98.2 F 68 20 140/56 L 96 08/06/17 07:30 08/06/17 07:30 08/06/17 07:30 08/06/17 07:30 08/06/17 07:30 Intake and Output: 08/06/17 08/06/17 06:59 18:59 Intake Total 1480 Balance 1480 - Medications Medications: Current Medications Acetaminophen (Tylenol 325mg Tab) 650 mg PO Q6H [facility] Stop: 08/06/17 14:31 Allopurinol (Zyloprim) 100 mg PO DAILY [facility] Last Admin: 08/05/17 15:29 Dose: 100 mg Amlodipine Besylate (Norvasc) 10 mg PO DAILY [facility] Last Admin: 08/05/17 10:15 Dose: 10 mg Arformoterol Tartrate (Brovana) 15 mcg IH [id number] [facility] Last Admin: 08/06/17 08:28 Dose: 15 mcg Atorvastatin Calcium (Lipitor) 40 mg PO HS [facility] Budesonide (Pulmicort Respules) 0.5 mg IH [id number] [facility] Last Admin: 08/06/17 08:29 Dose: 0.5 mg Clonidine HCl (Catapres) 0.3 mg PO BID [facility] Last Admin: 08/05/17 18:16 Dose: 0.3 mg Cyanocobalamin (Vitamin B12 1000 Mcg/Ml Inj) 1,000 mcg IM DAILY [facility] Stop: 08/15/17 10:01 Diphenhydramine HCl (Benadryl) 25 mg IVP Q6H [facility] Stop: 08/06/17 14:31 Diphenhydramine HCl (Benadryl) 25 mg PO Q6 PRN PRN Reason: Itching / Pruritus Folic Acid (Folic Acid) 1 mg PO DAILY [facility] Heparin Sodium (Porcine) (Heparin) 5,000 units SC Q8 [facility] PRN Reason: Protocol Last Admin: 08/06/17 06:07 Dose: 5,000 units Hydroxyzine HCl (Atarax) 10 mg PO Q6H PRN PRN Reason: Anxiety Last Admin: 08/06/17 00:39 Dose: 10 mg Ceftriaxone Sodium (Rocephin 1 Gram Ivpb) 1 gm in 100 mls @ 100 mls/hr IVPB DAILY [facility] PRN Reason: Protocol Stop: 08/13/17 10:36 Last Admin: 08/05/17 11:14 Dose: 100 mls/hr Iron Sucrose 200 mg/ Sodium (Chloride) 110 mls @ 110 mls/hr IVPB DAILY [facility] Stop: 08/07/17 10:59 Last Admin: 08/06/17 09:10 Dose: 110 mls/hr Lactic Acid (Lac-Hydrin 12% Cream (140 G)) 0 ea TOP TID [facility] Last Admin: 08/05/17 18:30 Dose: Not Given Losartan Potassium (Cozaar) 100 mg PO DAILY [facility] Last Admin: 08/05/17 10:15 Dose: 100 mg Methimazole (Tapazole) 5 mg PO DAILY [facility] Last Admin: 08/05/17 10:11 Dose: 5 mg (Fluticasone/Vilanterol [Breo Ellipta 200-25 Mcg Inh] 1 Each) 1 each IH DAILY [facility] Last Admin: 08/05/17 18:19 Dose: Not Given Pantoprazole Sodium (Protonix Ec Tab) 40 mg PO ACB [facility] Last Admin: 08/06/17 08:44 Dose: 40 mg Potassium Chloride (K-Dur 20 Meq Er Tab) 20 meq PO BRK [facility] Last Admin: 08/06/17 08:44 Dose: 20 meq - Labs Labs: 08/06/17 06:39 08/06/17 06:39 PT 11.4 Seconds (9.9-11.8) 08/04/17 18:30 INR 1.06 (0.93-1.08) 08/04/17 18:30 APTT 32.1 Seconds (23.7-30.8) H 08/04/17 18:30 - Constitutional Appears: Non-toxic, No Acute Distress - Head Exam Head Exam: NORMAL INSPECTION - ENT Exam ENT Exam: Mucous Membranes Moist - Neck Exam Neck Exam: absent: Lymphadenopathy, Meningismus - Respiratory Exam Respiratory Exam: Decreased Breath Sounds - Cardiovascular Exam Cardiovascular Exam: +S1, +S2 - GI/Abdominal Exam GI & Abdominal Exam: Soft. absent: Tenderness - Extremities Exam Additional comments: right leg with some chronic skin changes Assessment and Plan - Assessment and Plan (Free Text) Plan: Assessment right leg cellulitis, slowly improving HTN CAD S/P PCI history of bronchitis glaucoma history of hemorrhoids S/P hysterectomy Plan Continue Rocephin (day 2) and continue to monitor clinical response Follow up arterial doppler U/S to rule out PAD
[2017-08-06 17:05] LABS: TOTAL PROTEIN, SERUM 7.2 g/dL (6.1-8.1)
--- NOTE | 2017-08-06 18:19 | US ---
PROCEDURE: Lower extremity THOM exam HISTORY: Peripheral vascular disease with pain and claudication. Smoker. PHYSICIAN(S): Roddy Ayala MD. FINDINGS: The right resting THOM is mildly abnormal, 0.81. The left resting THOM is moderately abnormal, 0.6 The brachial systolic pressures are symmetric. The high thigh pressures and waveforms are relatively normal and symmetric The calf PVR waveforms augment normally. No significant gradients are noted across the thighs. There is a 33 mm gradient across the right knee and a 57 mm gradient across the left knee. The findings are consistent with bilateral distal SFA, popliteal, and/ or trifurcation disease. The distal waveforms are pulsatile. IMPRESSION: 1. Moderately abnormal left THOM at rest. Mildly abnormal right THOM at rest. 2. Bilateral distal SFA, popliteal, and/ or tibial disease. The distal waveforms are pulsatile.
--- NOTE | 2017-08-06 21:41 | CP.PCM.PN ---
Subjective - Date & Time of Evaluation Date of Evaluation: 08/06/17 Time of Evaluation: 19:00 - Subjective Subjective: Podiatry Consult Note - Dr. Jessica 72 year old female patient with extensive PMH seen and evaluated at bedside concerning bilateral lower leg redness with itchiness and pain, R>L. Patient is accompanied with family members at bedside. AAOx3 and NAD. Patient states she has had redness to both of her legs for the past 2 weeks, unknown why it started. Patient also complains of the same itchiness throughout her entire body , and states she has welts and similar redness all over her arms, stomach, and back. Patient states she was given Benadryl but only works for a couple of hours. Patient denies starting new medication, changing laundry detergent, buying new clothes, or changing hair dye, recent travel. Patient denies N/V/F/D/ C/SOB. No other pedal complaints at this time. Objective - Vital Signs/Intake and Output Vital Signs (last 24 hours): Temp Pulse Resp BP Pulse Ox 97.5 F L 60 20 133/63 96 08/06/17 20:37 08/06/17 20:37 08/06/17 20:37 08/06/17 20:37 08/06/17 07:30 Intake and Output: 08/06/17 08/07/17 18:59 06:59 Intake Total 340 995 Balance 340 995 - Medications Medications: Current Medications Allopurinol (Zyloprim) 100 mg PO DAILY [facility] Last Admin: 08/06/17 10:34 Dose: 100 mg Amlodipine Besylate (Norvasc) 10 mg PO DAILY [facility] Last Admin: 08/06/17 10:34 Dose: 10 mg Arformoterol Tartrate (Brovana) 15 mcg IH [id number] [facility] Last Admin: 08/06/17 19:45 Dose: 15 mcg Atorvastatin Calcium (Lipitor) 40 mg PO HS [facility] Last Admin: 08/06/17 21:04 Dose: 40 mg Budesonide (Pulmicort Respules) 0.5 mg IH [id number] [facility] Last Admin: 08/06/17 19:45 Dose: 0.5 mg Clonidine HCl (Catapres) 0.3 mg PO BID [facility] Last Admin: 08/06/17 17:48 Dose: 0.3 mg Cyanocobalamin (Vitamin B12 1000 Mcg/Ml Inj) 1,000 mcg IM DAILY [facility] Stop: 08/15/17 10:01 Last Admin: 08/06/17 10:33 Dose: 1,000 mcg Desoximetasone (Topicort 0.25%) 0 ea TOP BID [facility] Diphenhydramine HCl (Benadryl) 25 mg PO Q6 PRN PRN Reason: Itching / Pruritus Last Admin: 08/06/17 20:43 Dose: 25 mg Folic Acid (Folic Acid) 1 mg PO DAILY [facility] Last Admin: 08/06/17 10:33 Dose: 1 mg Heparin Sodium (Porcine) (Heparin) 5,000 units SC Q8 [facility] PRN Reason: Protocol Last Admin: 08/06/17 21:03 Dose: 5,000 units Hydroxyzine HCl (Atarax) 10 mg PO Q6H PRN PRN Reason: Anxiety Last Admin: 08/06/17 00:39 Dose: 10 mg Ceftriaxone Sodium (Rocephin 1 Gram Ivpb) 1 gm in 100 mls @ 100 mls/hr IVPB DAILY [facility] PRN Reason: Protocol Stop: 08/13/17 10:36 Last Admin: 08/06/17 10:31 Dose: 100 mls/hr Iron Sucrose 200 mg/ Sodium (Chloride) 110 mls @ 110 mls/hr IVPB DAILY [facility] Stop: 08/07/17 10:59 Last Admin: 08/06/17 09:10 Dose: 110 mls/hr Lactic Acid (Lac-Hydrin 12% Cream (140 G)) 0 ea TOP TID [facility] Last Admin: 08/06/17 17:49 Dose: 1 applic Losartan Potassium (Cozaar) 100 mg PO DAILY [facility] Last Admin: 08/06/17 10:33 Dose: 100 mg Methimazole (Tapazole) 5 mg PO DAILY [facility] Last Admin: 08/06/17 10:32 Dose: 5 mg (Fluticasone/Vilanterol [Breo Ellipta 200-25 Mcg Inh] 1 Each) 1 each IH DAILY [facility] Last Admin: 08/06/17 10:33 Dose: Not Given Pantoprazole Sodium (Protonix Ec Tab) 40 mg PO ACB [facility] Last Admin: 08/06/17 08:44 Dose: 40 mg Potassium Chloride (K-Dur 20 Meq Er Tab) 20 meq PO BRK [facility] Last Admin: 08/06/17 08:44 Dose: 20 meq - Labs Labs: PT 11.4 Seconds (9.9-11.8) 08/04/17 18:30 INR 1.06 (0.93-1.08) 08/04/17 18:30 APTT 32.1 Seconds (23.7-30.8) H 08/04/17 18:30 - Constitutional Appears: Well, Non-toxic, No Acute Distress - Extremities Exam Additional comments: VASC: DP and PT pulses palpable b/l. CFT wnl. TG warm to warm. Nonpitting edema noted to RLE. NEURO: Gross sensation intact bilaterally DERM: Erythema noted to bilateral LE extending from b/l knee to ankle joint. - Erythematous papules noted throughout b/l arms, chest, abdomen, back, thighs ORTHO: Tenderness to palpation right anterior tibia. Pain on palpation noted to left hallucal IPJ and medial nail groove. - Neurological Exam Neurological Exam: Alert, Awake, Oriented x3 - Psychiatric Exam Psychiatric exam: Normal Affect, Normal Mood Assessment and Plan - Assessment and Plan (Free Text) Assessment: 72 year old female with questionable bilateral lower extremity cellulitis Plan: Patient seen and evaluated at bedside with attending, Dr. Jessica Chart, vitals, labs reviewed = afebrile, WBC 11.0 Questionable cellulitis - generalized redness/itchiness may be due to inflammatory disease. Dr. Mirian colon appreciated Topicort ordered for b/l leg itchiness C/w benadryl for itchiness Left foot XR report reviewed = negative for acute fx or dislocation LE arterial doppler reviewed - Moderately abnormal L THOM at rest - Mildly abnormal R THOM at rest - Bilat distal SFA, popliteal, and/or tibial disease Podiatry will continue to follow while in house
--- NOTE | 2017-08-06 22:41 | CP.PCM.CON ---
History of Present Illness - History of Present Illness History of Present Illness: Vascular surgery consult note for Dr. Katt Guadalupe, PGY-1 Pt S & E at bedside. 72F w/PMH sig for DM consulted for PAD. Pt reports she was admitted to hospital for B/L LE swelling, erythema x 2 wks. Pt reports that she is unable to walk more than 1-2 blocks due to B/L LE weakness. Admits to B/L knee pain ( intermittent), occasional numbness and tingling of extremities. Denies rest pain , LE pain with ambulation, LE pain better with dangling legs off bed, LE pain that arouses her from sleep. PMH: HTN, DM, HLD, CAD s/p stent, hyperthyroidism, B/L LE cellulitis, anemia, gout PSH: Hysterectomy All: Demerol SH: Admits to tobacco use- smoked for approx 5 years, 1pack per 3 days, quit 3 wks ago, denies ETOH, or illicit drug use Review of Systems - Review of Systems All systems: reviewed and no additional remarkable complaints except - Constitutional Constitutional: absent: Chills, Fever, Headache - EENT Eyes: absent: Change in Vision Nose/Mouth/Throat: absent: Sore Throat - Cardiovascular Cardiovascular: absent: Chest Pain, Claudication, Leg Edema, Palpitations - Respiratory Respiratory: absent: Cough - Gastrointestinal Gastrointestinal: absent: Abdominal Pain, Nausea, Vomiting - Genitourinary Genitourinary: absent: Change in Urinary Stream - Musculoskeletal Musculoskeletal: Numbness (occasional), Tingling (occasional). absent: Back Pain, Muscle Cramps, Muscle Weakness, Stiffness - Integumentary Integumentary: Dry Skin, Erythema, Rash, Skin Ulcer, Swelling - Neurological Neurological: Paresthesias (occasional). absent: Weakness Past Patient History - Past Medical History & Family History Past Medical History?: Yes - Past Social History Smoking Status: Light Smoker < 10 Cigarettes Daily - CARDIAC Hx Cardiac Disorders: Yes (S/P STENT) Hx Hypertension: Yes - PULMONARY Hx Bronchitis: Yes - NEUROLOGICAL Hx Neurological Disorder: No - HEENT Hx HEENT Problems: Yes (GLAUCOMA) Hx Glaucoma: Yes - RENAL Hx Chronic Kidney Disease: No - ENDOCRINE/METABOLIC Hx Diabetes Mellitus Type 2: Yes - HEMATOLOGICAL/ONCOLOGICAL Hx Anemia: Yes - INTEGUMENTARY Hx Dermatological Problems: No - MUSCULOSKELETAL/RHEUMATOLOGICAL Hx Arthritis: Yes (BACK AND KNEE PAIN; NECK PAIN) Hx Falls: No - GASTROINTESTINAL Hx Gastrointestinal Disorders: Yes (HEMORRHOIDS,CONSTIPATION) - GENITOURINARY/GYNECOLOGICAL Hx Genitourinary Disorders: No - PSYCHIATRIC Hx Psychophysiologic Disorder: No - SURGICAL HISTORY Hx Hysterectomy: Yes - ANESTHESIA Hx Anesthesia: Yes Hx Anesthesia Reactions: No Meds Allergies/Adverse Reactions: Allergies Allergy/AdvReac Type Severity Reaction Status Date / Time No Known Allergies Allergy Verified 08/04/17 17:58 - Medications Medications: Current Medications Allopurinol (Zyloprim) 100 mg PO DAILY [facility] Last Admin: 08/06/17 10:34 Dose: 100 mg Amlodipine Besylate (Norvasc) 10 mg PO DAILY [facility] Last Admin: 08/06/17 10:34 Dose: 10 mg Arformoterol Tartrate (Brovana) 15 mcg IH [id number] [facility] Last Admin: 08/06/17 19:45 Dose: 15 mcg Atorvastatin Calcium (Lipitor) 40 mg PO HS [facility] Last Admin: 08/06/17 21:04 Dose: 40 mg Budesonide (Pulmicort Respules) 0.5 mg IH [id number] [facility] Last Admin: 08/06/17 19:45 Dose: 0.5 mg Clonidine HCl (Catapres) 0.3 mg PO BID [facility] Last Admin: 08/06/17 17:48 Dose: 0.3 mg Cyanocobalamin (Vitamin B12 1000 Mcg/Ml Inj) 1,000 mcg IM DAILY [facility] Stop: 08/15/17 10:01 Last Admin: 08/06/17 10:33 Dose: 1,000 mcg Desoximetasone (Topicort 0.25%) 0 ea TOP BID [facility] Folic Acid (Folic Acid) 1 mg PO DAILY [facility] Last Admin: 08/06/17 10:33 Dose: 1 mg Heparin Sodium (Porcine) (Heparin) 5,000 units SC Q8 [facility] PRN Reason: Protocol Last Admin: 08/06/17 21:03 Dose: 5,000 units Hydroxyzine HCl (Atarax) 10 mg PO Q6H PRN PRN Reason: Anxiety Last Admin: 08/06/17 00:39 Dose: 10 mg Ceftriaxone Sodium (Rocephin 1 Gram Ivpb) 1 gm in 100 mls @ 100 mls/hr IVPB DAILY [facility] PRN Reason: Protocol Stop: 08/13/17 10:36 Last Admin: 08/06/17 10:31 Dose: 100 mls/hr Iron Sucrose 200 mg/ Sodium (Chloride) 110 mls @ 110 mls/hr IVPB DAILY [facility] Stop: 08/07/17 10:59 Last Admin: 08/06/17 09:10 Dose: 110 mls/hr Lactic Acid (Lac-Hydrin 12% Cream (140 G)) 0 ea TOP TID [facility] Last Admin: 08/06/17 17:49 Dose: 1 applic Losartan Potassium (Cozaar) 100 mg PO DAILY [facility] Last Admin: 08/06/17 10:33 Dose: 100 mg Methimazole (Tapazole) 5 mg PO DAILY [facility] Last Admin: 08/06/17 10:32 Dose: 5 mg (Fluticasone/Vilanterol [Breo Ellipta 200-25 Mcg Inh] 1 Each) 1 each IH DAILY [facility] Last Admin: 08/06/17 10:33 Dose: Not Given Pantoprazole Sodium (Protonix Ec Tab) 40 mg PO ACB [facility] Last Admin: 08/06/17 08:44 Dose: 40 mg Potassium Chloride (K-Dur 20 Meq Er Tab) 20 meq PO BRK [facility] Last Admin: 08/06/17 08:44 Dose: 20 meq Physical Exam - Constitutional Appears: Non-toxic, No Acute Distress - Head Exam Head Exam: ATRAUMATIC, NORMAL INSPECTION, NORMOCEPHALIC - Eye Exam Eye Exam: EOMI, Normal appearance - ENT Exam ENT Exam: Mucous Membranes Moist, Normal Exam - Neck Exam Neck exam: Positive for: Full Rom, Normal Inspection - Respiratory Exam Respiratory Exam: Clear to Auscultation Bilateral, NORMAL BREATHING PATTERN - Cardiovascular Exam Cardiovascular Exam: REGULAR RHYTHM, +S1, +S2 - GI/Abdominal Exam GI & Abdominal Exam: Normal Bowel Sounds, Soft. absent: Distended, Firm, Tenderness - Extremities Exam Extremities exam: Positive for: normal capillary refill, pedal edema, tenderness (B/L LE), pedal pulses present. Negative for: calf tenderness, joint swelling, normal inspection - Back Exam Back exam: FULL ROM, NORMAL INSPECTION - Neurological Exam Neurological exam: Alert, CN II-XII Intact, Oriented x3 - Psychiatric Exam Psychiatric exam: Normal Affect, Normal Mood - Skin Skin Exam: Dry, Erythema (B/L LE from feet to knees), Warm Additional comments: Cellulitis of B/L LE w/small areas of ulceration over anterior aspect of B/L legs, Tender to palpation with 1+ pitting edema B/L Results - Vital Signs Recent Vital Signs: Last Vital Signs Temp 97.5 F L 08/06/17 20:37 Pulse 60 08/06/17 20:37 Resp 20 08/06/17 20:37 BP 133/63 08/06/17 20:37 Pulse Ox 96 08/06/17 16:00 - Labs Result Diagrams: 08/06/17 06:39 08/06/17 06:39 Labs: Laboratory Results - last 24 hr 08/06/17 16:30 Stool Occult Blood Positive H Assessment & Plan - Assessment and Plan (Free Text) Assessment: 72F vascular surgery consulted for PAD, currently asymptomatic Plan: R THOM 0.81 L THOM 0.6 33 mm gradient across R knee, 57mm gradiaent across L knee- consistent w/B/L distal SFA, popliteal &/or trifurcation disease Continue medical management as per primary team for cellulitis Further recs as per vascular attending Will TANI attending Anayeli, PGY-1 - Date & Time Date: 08/06/17 Time: 22:42
[2017-08-07 00:02] LABS: BASO # 0.02 K/mm3 (0.0-2.0); BASO % 0.2 % (0.0-3.0); EOS # 0.6 (0.0-0.7); GRAN # 7.27 (1.4-6.5); GRAN % 73.3 % (50.0-68.0); LYMPH # 1.5 (1.2-3.4); MEAN CELL VOLUME 81.6 fl (80.0-105.0); MEAN CORPUSCULAR HEMOGLOBIN 28.1 pg (25.0-35.0); MEAN CORPUSCULAR HGB CONC 34.4 g/dl (31.0-37.0); MEAN PLATELET VOLUME 9.3 fl (7.0-11.0); MONO # 0.6 (0.1-0.6); MONO % 5.5 % (1.0-6.0); RED CELL DISTRIBUTION WIDTH 15.4 % (11.5-14.5); WHITE BLOOD COUNT 9.9 10^3/ul (4.5-11.0)
--- NOTE | 2017-08-07 01:45 | PN ---
DATE: 08/06/2017 SUBJECTIVE: The patient is seen lying in the bed in room number 562, bed 2. The patient is comfortable. Overnight nurse's notes were reviewed.. The patient complained of itching of the legs for which the patient was given Vistaril. PHYSICAL EXAMINATION: VITAL SIGNS: T-max afebrile, heart rate of 60 to 67, blood pressure of 133/63, 128/55 and 123/58, respirations of 18, and O2 saturation is 96% to 98%. HEENT: The patient head examination is normocephalic and atraumatic. HEENT examination shows pale conjunctivae. Anicteric sclerae. No oropharyngeal lesion. NECK: No neck rigidity. CHEST: Kyphosis. LUNGS: Examination shows no rales, crackles or wheezing. CARDIOVASCULAR: S1 and S2, regular rhythm. ABDOMEN: Soft. Positive bowel sound. GENITALIA: Female. RECTAL: Examination is deferred. EXTREMITIES: Show dry lower extremity skin with positive erythema and trace swelling. The patient's musculoskeletal examination shows a body mass index of 24. NEUROLOGIC: Cranial nerves II through XII are intact. Gait examination is not tested. DIAGNOSTIC STUDIES: From August 06, WBC of 11.0, hemoglobin and hematocrit of 8.8 and 27.0, MCV of 79, and platelets of 304. Granulocytes of 74. Retic count is 1.17 and sickle cell screen is negative. Hemoglobin electrophoresis is pending.. Sodium of 140, potassium of 4.0, chloride of 110, CO2 of 21, anion gap of 13, BUN of 15, creatinine of 1.4, GFR of 44, and glucose of 92. Hemoglobin A1c of 6.6 and 6.7. Lactic acid was normal. Erythropoietin 32.3.. The uric acid was high at 10.8. LFTs are normal. B12 is 299 which is low normal, folate is 6.4. Procalcitonin was negative. Total thyroxine 9.0. TSH was 1.95. Stool occult blood positive x2.. Blood cultures no growth. IMPRESSION AND PLAN 1. Bilateral lower extremity cellulitis (resolving). 2. History of hypertension. 3. Microcytic anemia. 4. Granulocytosis. 5. Status post packed red blood cell transfusion x1. 6. Transient lactic acidosis. 7. Hypokalemia. 8. Status post acute kidney injury. 9. Diabetes mellitus with hemoglobin A1c of 6.6. 10. Hyperuricemia. 11. Iron deficiency microcytic anemia. 12. Possible borderline vitamin B12 deficiency and folate deficiency. 13. Gait dysfunction. 14. Deconditioning. 15. Questionable gastrointestinal bleeding with positive stool occult blood. 16. Proteinuria and microscopic hematuria and pyuria. 17. Questionable right lower lobe atelectasis and pneumonia. 18. Right apical granuloma. 19. Increased pulmonary interstitial marking 20. Cardiomegaly. 21. Thoracic spine multilevel degenerative spondylosis. 22. Peripheral vascular disease of the lower extremity with ankle-brachial index of 0.81 on the right and 0.6 on the left. 23. Bilateral lower extremity distal superficial femoral artery, popliteal and tibial disease. 24. Diffuse bony demineralization 25. Medical renal disease. 26. Status post acute kidney injury. 27. History of chronic obstructive pulmonary disease. 28. Microcytic iron deficiency anemia. 29. History of coronary artery disease. 30. History of coronary angioplasty. PLAN: At this time, the patient has been ordered serial labs. The patient's B12 deficiency testing has been ordered. The patient has been ordered autoimmune workup. The patient has been ordered ANITA. The patient has been ordered serial labs.. The patient has been seen by junior network administrator. The patient's autoimmune workup has been ordered. The patient's Helicobacter pylori was pending. Repeat CBC has been ordered. Current consultation, Gastroenterology, Infectious Diseases, Hematology/Oncology and Podiatry. The patient will also be requested by a Vascular Surgery Dr. Molly Jacob. The patient will be consulted with vascular surgery for evaluation of peripheral arterial disease.. The patient has been ordered Atarax and hydroxyzine 10 mg q. 6 hours. p.r.n. The patient has been ordered Brovana nebulizer treatment. The patient is on clonidine 0.3 twice a day, Cozaar 100 mg daily, Breo Ellipta one puff daily, folic acid 1 mg daily, heparin 5000 subcutaneously q. 8 hours, Venofer 200 mg IV daily, K-Dur 20 mEq daily, Lac-Hydrin lotion to both feet and legs, Lipitor 40 mg daily, Norvasc 10 mg daily Protonix 40 mg daily Pulmicort nebulizer 0.5 mg q. 12 hours, Rocephin 1 g IV daily Tapazole 5 mg daily, Topicort ointment to the both lower extremity twice a day, vitamin B12 1000 mcg IM daily, and allopurinol 100 mg daily. The patient has been ordered CT scan of the abdomen, pelvis with p.o. contrast by gastroenterology. EKG report is pending. Heart healthy diet ordered and out of bed ordered. Transfusion of PRBC ordered. Occupational and physical therapy ordered. Stool occult blood repeat ordered. The patient's serum protein electrophoresis and immunofixation is pending. The patient further management will be dependent upon the patient's clinical condition, hemodynamic status and the patient response to therapeutic intervention. The patient was seen by a social security benefits interviewer. Regarding discharge planning home with services versus TCU. The patient has not been seen by physical therapist. The patient was extensively updated about her condition, diagnoses, treatment plan, management plan and need for further diagnostic therapeutic intervention which she acknowledged understand. At present consultation, Gastroenterology, Infectious Disease, Hematology/Oncology Podiatry and Vascular Surgery. Dictated and electronically signed, not read. Phil Vela MD DATE: 08/06/2017
--- NOTE | 2017-08-07 05:01 | CON ---
DATE: 08/06/2017 REQUESTING PHYSICIAN: Phil Vela MD REASON FOR CONSULT: I have been asked to see this 72-year-old female with known history of multiple comorbidities including coronary artery disease, hypertension, bronchitis, chronic anemia, history of tubulovillous adenoma of the sigmoid colon, hiatal hernia who is admitted to the hospital with cellulitis of the lower extremities, who I have been asked to see for anemia. The patient had an endoscopy and colonoscopy in January of 2017 which revealed a tubulovillous adenoma of the sigmoid colon, diverticulosis and hiatal hernia. No other causes of GI blood loss was identified. She currently denies any rectal bleeding or melena. She came into the hospital because of swelling of her legs and was found to have cellulitis. PAST MEDICAL HISTORY: Is as above. She has a history of coronary artery disease, hypertension, chronic anemia, bronchitis and glaucoma. PAST SURGICAL HISTORY: Is notable for hysterectomy. SOCIAL HISTORY: She denies cigarette smoking or alcohol use. FAMILY HISTORY: Noncontributory. REVIEW OF SYSTEMS: A 14-point review of systems is notable for lower extremity swelling and redness. PHYSICAL EXAMINATION: GENERAL: Elderly female, lying in bed, in no acute distress. VITAL SIGNS: Reveal temperature of 98, blood pressure 123/58 and heart rate of 68. HEENT: Reveal sclerae to be white. Conjunctivae pale. NECK: Supple. CHEST: Reveal lungs to be clear. HEART: Exam reveals a regular rate and rhythm. ABDOMEN: Soft, nontender. No mass. EXTREMITIES: Show 1+ pedal edema to the lower extremities. I do not see any redness at this time. LABORATORY DATA: Reveal white blood cell count of 11, hemoglobin of 8.8 after transfusion of 2 units of packed red blood cells. Chemistries reveal normal electrolytes. Her iron saturation was 9%. IMPRESSION: A 72-year-old female admitted to the hospital with cellulitis of the lower extremities with iron-deficiency anemia. Her anemia is chronic that dates back to at least January of this year at which time she had endoscopy and colonoscopy which revealed a hiatal hernia and tubulovillous adenoma of the sigmoid colon with diverticulosis. RECOMMENDATIONS: 1. Continue PPI. 2. Iron replacement. 3. We will request a CT scan of the abdomen and pelvis to rule out any malignant lesions throughout the GI tract. 4. No plans for endoscopy or colonoscopy at this time as this was done in March of this year. Tim Shepherd MD
[2017-08-07 06:03] LABS: HOMOCYSTEINE 20.3 umol/L (<10.4)
[2017-08-07 07:08] LABS: BASO # 0.01 K/mm3 (0.0-2.0); BASO % 0.1 % (0.0-3.0); EOS # 0.8 (0.0-0.7); EOS % 6.5 % (1.5-5.0); GRAN # 8.7 (1.4-6.5); GRAN % 73.8 % (50.0-68.0); HEMATOCRIT 32.4 % (36.0-48.0); LYMPH # 1.6 (1.2-3.4); LYMPH % 13.8 % (22.0-35.0); MEAN CELL VOLUME 80.6 fl (80.0-105.0); MEAN CORPUSCULAR HEMOGLOBIN 27.9 pg (25.0-35.0); MEAN CORPUSCULAR HGB CONC 34.6 g/dl (31.0-37.0); MEAN PLATELET VOLUME 10.1 fl (7.0-11.0); MONO # 0.7 (0.1-0.6); MONO % 5.8 % (1.0-6.0); RED CELL DISTRIBUTION WIDTH 15.4 % (11.5-14.5); WHITE BLOOD COUNT 11.8 10^3/ul (4.5-11.0)
[2017-08-07] MEDS: Budesonide 0.5 mg/2 ml Inhal Susp UD IH SCH ×2 (07:27→21:08)
[2017-08-07] MEDS: Arformoterol 15 mcg/2 ml Inh Sol IH SCH ×2 (07:27→21:08)
[2017-08-07] MEDS ORDERED: Barium Sulfate Susp 2.1% w/v, 2.0% w/w 450 mL Bottle PO ONE (07:27)
[2017-08-07 07:36] LABS: HEMOGLOBIN F <1.0 Percent (<2.0)
[2017-08-07 07:38] LABS: BILIRUBIN,DIRECT 0.3 mg/dL (0.0-0.4); BILIRUBIN,TOTAL 0.6 mg/dL (0.2-1.3); CALCIUM 9.1 mg/dL (8.4-10.5); MAGNESIUM 1.7 mg/dL (1.7-2.2); POTASSIUM 4.3 mmol/L (3.6-5.0); TOTAL PROTEIN 6.7 g/dL (5.8-8.3)
[2017-08-07] MEDS: Potassium Chloride 20 mEq ER Tab PO SCH (08:23)
[2017-08-07] MEDS: Pantoprazole 40 mg EC Tab PO SCH (08:23)
--- NOTE | 2017-08-07 09:49 | CARD ---
APPROVED REPORT EKG Measurement Heart [id number] <Conclusion> Sinus rhythm with premature atrial complexes Minimal voltage criteria for LVH, may be normal variant T wave abnormality, consider lateral ischemia
[2017-08-07] MEDS: cefTRIAXone 1 gm 1 GM/100 ML BAG IVPB SCH (10:26)
[2017-08-07] MEDS: methIMAzole 5 MG TAB PO SCH (10:27)
[2017-08-07] MEDS: Ammonium Lactate 12% Cream (140 g) TOP SCH ×3 (10:30→17:07)
--- NOTE | 2017-08-07 12:00 | CT ---
PROCEDURE: CT Abdomen and Pelvis without intravenous contrast HISTORY: anemia COMPARISON: None. TECHNIQUE: Without contrast.. Contrast Dose: 0 Radiation dose: Total exam DLP = 495.08 mGy-cm. This CT exam was performed using one or more of the following dose reduction techniques: Automated exposure control, adjustment of the mA and/or kV according to patient size, and/or use of iterative reconstruction technique. FINDINGS: LOWER THORAX: Minimal linear scar/ atelectasis in both lower lobes. LIVER: Normal size, contour and attenuation. Several small nonspecific low-attenuation lesions in the superior left hepatic lobe, 5 mm and 8 mm in respective diameter. There is a punctate calcification in the lateral segment of the left hepatic lobe, possibly calcified granuloma. No other hepatic mass. No biliary dilatation. GALLBLADDER AND BILE DUCTS: The gallbladder wall is diffusely thickened. There is a gallstone seen dependently within the gallbladder lumen. There is no pericholecystic fluid. Please correlate clinically for any concern regarding cholecystitis. Consider evaluation with abdominal ultrasound. PANCREAS: Unremarkable. No gross lesion or ductal dilatation. SPLEEN: Unremarkable. ADRENALS: Unremarkable. No mass. KIDNEYS AND URETERS: Rounded fluid density mass in the lower pole of the right kidney, 1.2 cm and in the lower pole of the left kidney, 1.4 cm. Likely renal cysts. No renal calculus or hydronephrosis peer VASCULATURE: Unremarkable. No aortic aneurysm. BOWEL: Unremarkable. No obstruction. No gross mural thickening. APPENDIX: Not identified. No secondary findings to suggest appendicitis. PERITONEUM: No ascites. Small umbilical hernia containing only mesenteric fat. LYMPH NODES: Unremarkable. No enlarged lymph nodes. BLADDER: Unremarkable. REPRODUCTIVE: Status post hysterectomy BONES: No acute fracture. OTHER FINDINGS: None. IMPRESSION: Diffusely thickened gallbladder wall. Cholelithiasis. Please correlate for clinical concern cholecystitis. Consider evaluation with ultrasound examination. Minor findings as above.
--- NOTE | 2017-08-07 12:34 | CP.PCM.PN ---
Subjective - Date & Time of Evaluation Date of Evaluation: 08/07/17 Time of Evaluation: 10:45 - Subjective Subjective: Comfortable, not in distress, afebrile, still with some itching on the lower extremities. Objective - Vital Signs/Intake and Output Vital Signs (last 24 hours): Temp Pulse Resp BP Pulse Ox 97.9 F 63 18 141/60 98 08/07/17 07:36 08/07/17 07:36 08/07/17 07:36 08/07/17 07:36 08/07/17 07:36 Intake and Output: 08/07/17 08/07/17 06:59 18:59 Intake Total 1355 Balance 1355 - Medications Medications: Current Medications Allopurinol (Zyloprim) 100 mg PO DAILY [facility] Last Admin: 08/06/17 10:34 Dose: 100 mg Amlodipine Besylate (Norvasc) 10 mg PO DAILY [facility] Last Admin: 08/06/17 10:34 Dose: 10 mg Arformoterol Tartrate (Brovana) 15 mcg IH [id number] [facility] Last Admin: 08/07/17 07:27 Dose: 15 mcg Atorvastatin Calcium (Lipitor) 40 mg PO HS [facility] Last Admin: 08/06/17 21:04 Dose: 40 mg Budesonide (Pulmicort Respules) 0.5 mg IH [id number] [facility] Last Admin: 08/07/17 07:27 Dose: 0.5 mg Clonidine HCl (Catapres) 0.3 mg PO BID [facility] Last Admin: 08/06/17 17:48 Dose: 0.3 mg Cyanocobalamin (Vitamin B12 1000 Mcg/Ml Inj) 1,000 mcg IM DAILY [facility] Stop: 08/15/17 10:01 Last Admin: 08/06/17 10:33 Dose: 1,000 mcg Desoximetasone (Topicort 0.25%) 0 ea TOP BID [facility] Folic Acid (Folic Acid) 1 mg PO DAILY [facility] Last Admin: 08/06/17 10:33 Dose: 1 mg Heparin Sodium (Porcine) (Heparin) 5,000 units SC Q8 [facility] PRN Reason: Protocol Last Admin: 08/07/17 06:17 Dose: 5,000 units Hydroxyzine HCl (Atarax) 25 mg PO Q6H PRN PRN Reason: Itching / Pruritus Ceftriaxone Sodium (Rocephin 1 Gram Ivpb) 1 gm in 100 mls @ 100 mls/hr IVPB DAILY [facility] PRN Reason: Protocol Stop: 08/13/17 10:36 Last Admin: 08/06/17 10:31 Dose: 100 mls/hr Iron Sucrose 200 mg/ Sodium (Chloride) 110 mls @ 110 mls/hr IVPB DAILY [facility] Stop: 08/07/17 10:59 Last Admin: 08/06/17 09:10 Dose: 110 mls/hr Lactic Acid (Lac-Hydrin 12% Cream (140 G)) 0 ea TOP TID [facility] Last Admin: 08/06/17 17:49 Dose: 1 applic Losartan Potassium (Cozaar) 100 mg PO DAILY [facility] Last Admin: 08/06/17 10:33 Dose: 100 mg Methimazole (Tapazole) 5 mg PO DAILY [facility] Last Admin: 08/06/17 10:32 Dose: 5 mg (Fluticasone/Vilanterol [Breo Ellipta 200-25 Mcg Inh] 1 Each) 1 each IH DAILY [facility] Last Admin: 08/06/17 10:33 Dose: Not Given Pantoprazole Sodium (Protonix Ec Tab) 40 mg PO ACB [facility] Last Admin: 08/07/17 08:23 Dose: 40 mg Potassium Chloride (K-Dur 20 Meq Er Tab) 20 meq PO BRK [facility] Last Admin: 08/07/17 08:23 Dose: 20 meq - Labs Labs: 08/07/17 06:51 08/07/17 06:51 PT 11.4 Seconds (9.9-11.8) 08/04/17 18:30 INR 1.06 (0.93-1.08) 08/04/17 18:30 APTT 32.1 Seconds (23.7-30.8) H 08/04/17 18:30 - Constitutional Appears: Non-toxic, No Acute Distress - Head Exam Head Exam: NORMAL INSPECTION - ENT Exam ENT Exam: Mucous Membranes Moist - Neck Exam Neck Exam: absent: Meningismus - Respiratory Exam Respiratory Exam: Decreased Breath Sounds - Cardiovascular Exam Cardiovascular Exam: +S1, +S2 - GI/Abdominal Exam GI & Abdominal Exam: Soft. absent: Tenderness - Extremities Exam Additional comments: some chronic skin changes noted on the lower extremities Assessment and Plan - Assessment and Plan (Free Text) Plan: Assessment right leg cellulitis (mild), slowly improving HTN CAD S/P PCI history of bronchitis glaucoma history of hemorrhoids S/P hysterectomy Plan Continue Rocephin (day 3) and continue to monitor clinical response Follow up arterial doppler U/S to rule out PAD follow up Podiatry recommendations
[2017-08-07 14:02] LABS: PARIETAL CELL AB SCREEN Negative (Negative)
--- NOTE | 2017-08-07 14:06 | CP.PCM.PN ---
<XIAO STOKES - Last Filed: 08/07/17 14:56> Subjective - Date & Time of Evaluation Date of Evaluation: 08/07/17 Time of Evaluation: 14:03 - Subjective Subjective: Medicine Progress Note for Dr. Vela: Pt seen and examined at bedside. Pt denies any acute overnight events. Pt states that rash on legs is unchanged. Pt states that pruritis is still present and medications only temporarily helps. Pt denies any CP, SOB, n/v/d, chills, fever, abdominal pain, dysuria, fatigue, or dizziness. Objective - Vital Signs/Intake and Output Vital Signs (last 24 hours): Temp Pulse Resp BP Pulse Ox 97.9 F 63 18 138/88 98 08/07/17 07:36 08/07/17 07:36 08/07/17 07:36 08/07/17 10:28 08/07/17 07:36 Intake and Output: 08/07/17 08/07/17 06:59 18:59 Intake Total 1355 Balance 1355 - Medications Medications: Current Medications Allopurinol (Zyloprim) 100 mg PO DAILY [facility] Last Admin: 08/07/17 10:28 Dose: 100 mg Amlodipine Besylate (Norvasc) 10 mg PO DAILY [facility] Last Admin: 08/07/17 10:28 Dose: 10 mg Arformoterol Tartrate (Brovana) 15 mcg IH [id number] [facility] Last Admin: 08/07/17 07:27 Dose: 15 mcg Atorvastatin Calcium (Lipitor) 40 mg PO HS [facility] Last Admin: 08/06/17 21:04 Dose: 40 mg Budesonide (Pulmicort Respules) 0.5 mg IH [id number] [facility] Last Admin: 08/07/17 07:27 Dose: 0.5 mg Clonidine HCl (Catapres) 0.3 mg PO BID [facility] Last Admin: 08/07/17 10:27 Dose: 0.3 mg Cyanocobalamin (Vitamin B12 1000 Mcg/Ml Inj) 1,000 mcg IM DAILY [facility] Stop: 08/15/17 10:01 Last Admin: 08/07/17 10:27 Dose: 1,000 mcg Desoximetasone (Topicort 0.25%) 0 ea TOP BID [facility] Folic Acid (Folic Acid) 1 mg PO DAILY [facility] Last Admin: 09/26/17 10:28 Dose: 1 mg Heparin Sodium (Porcine) (Heparin) 5,000 units SC Q8 CARLITOS PRN Reason: Protocol Last Admin: 08/07/17 13:15 Dose: 5,000 units Hydroxyzine HCl (Atarax) 25 mg PO Q6H PRN PRN Reason: Itching / Pruritus Ceftriaxone Sodium (Rocephin 1 Gram Ivpb) 1 gm in 100 mls @ 100 mls/hr IVPB DAILY CARLITOS PRN Reason: Protocol Stop: 08/13/17 10:36 Last Admin: 08/07/17 10:26 Dose: 100 mls/hr Lactic Acid (Lac-Hydrin 12% Cream (140 G)) 0 ea TOP TID [facility] Last Admin: 08/07/17 13:14 Dose: 1 applic Losartan Potassium (Cozaar) 100 mg PO DAILY [facility] Last Admin: 08/07/17 10:27 Dose: 100 mg Methimazole (Tapazole) 5 mg PO DAILY [facility] Last Admin: 08/07/17 10:27 Dose: 5 mg (Fluticasone/Vilanterol [Breo Ellipta 200-25 Mcg Inh] 1 Each) 1 each IH DAILY [facility] Last Admin: 08/07/17 10:28 Dose: Not Given Pantoprazole Sodium (Protonix Ec Tab) 40 mg PO ACB [facility] Last Admin: 08/07/17 08:23 Dose: 40 mg Potassium Chloride (K-Dur 20 Meq Er Tab) 20 meq PO BRK [facility] Last Admin: 08/07/17 08:23 Dose: 20 meq - Labs Labs: 08/07/17 06:51 08/07/17 06:51 PT 11.4 Seconds (9.9-11.8) 08/04/17 18:30 INR 1.06 (0.93-1.08) 08/04/17 18:30 APTT 32.1 Seconds (23.7-30.8) H 08/04/17 18:30 - Constitutional Appears: No Acute Distress - Head Exam Head Exam: ATRAUMATIC, NORMOCEPHALIC - Eye Exam Eye Exam: EOMI, PERRL - ENT Exam ENT Exam: Mucous Membranes Moist - Neck Exam Neck Exam: Full ROM - Respiratory Exam Respiratory Exam: Clear to Ausculation Bilateral. absent: Rales, Rhonchi, Wheezes - Cardiovascular Exam Cardiovascular Exam: RRR. absent: Gallop, Rubs, Murmur - GI/Abdominal Exam GI & Abdominal Exam: Soft. absent: Distended, Guarding, Tenderness, Rebound - Extremities Exam Additional comments: Scaling rash noted on b/l LE, 1+ edema LLE - Neurological Exam Neurological Exam: Alert, Awake, Oriented x3 - Psychiatric Exam Psychiatric exam: Normal Affect, Normal Mood - Skin Skin Exam: Dry, Intact, Rash, Warm Assessment and Plan - Assessment and Plan (Free Text) Assessment: 72 yo female with PMH of CAD with multiple stents, hyperlipidemia, HTN, COPD, and hyperthyroidism is being evaluated and treated for possible B/L LE cellulitis, iron deficiency anemia, and possible PAD. Plan: 1. Questionable B/L LE cellultis - ID consulted - Cont Ceftriaxone 1 gm IVPB day 3 - Benadryl PRN, hydroxyzine PRN for pruritis - US B/L LE negative, F/U repeat US - Procal WNL - Case referred for TCU and case management 2. Iron-deficiency Anemia - Heme consulted recommended Venofer daily - GI consulted for Iron def anemia and positive HOBT Endoscopic workup in January [address] Abdomen showed diffusely thickened GB wall, cholelithiasis GB patholgy unlikely as ALP and LFT WNL - Transfused 3 units pRBC with appropriate response in H/H - Hgb 11.2 today - F/u H. pylori ag - B12 and Folate levels low normal - F/U anemia workup Methlymalonic acid pending Homocysteine elevated - F/U autoimmune workup Anti-Sm, dsDNA Ab, IF Ab, Anticentromere, Anti-Zara pending 3. Possible Peripheral Artery Disease - Vascular surgery consulted recs appreciated - Podiatry consulted recs appreciated - Arterial doppler US shows left THOM 0.6 and right THOM 0.81 - HA1c 6.6% - Left foot x-ray negative 4. Acute Renal Injury, H/O CKD stage III - Cr 1.4 - Renal US showed medical renal disease - Cont to monitor - Avoid nephrotoxic medications 5. Hyperuricemia - Cont Allopurinol 6. Hypokalemia, resolved - K-Dur 20 meq PO daily - Cont to monitor, replete as needed 7. H/O HTN - Cont Norvasc, Cozaar, and Clonidine 8. H/O Dyslipidemia - Cont Lipitor 9. H/O COPD - Cont Brovana, Budesonide 10. H/O Hyperthyroidism - Cont Methimazole - TSH, Free T4 WNL GI/DVT PPx - Protonix - HSQ Pt seen and discussed in detail with Dr. Vela. Ivan Stokes PGY1 <Phil Vela U - Last Filed: 08/11/17 09:00> Objective - Vital Signs/Intake and Output Vital Signs (last 24 hours): Temp Pulse Resp BP Pulse Ox 98.4 F 65 18 135/58 L 95 08/10/17 07:58 08/10/17 11:25 08/10/17 07:58 08/10/17 11:25 08/10/17 07:58 - Labs Labs: 08/10/17 06:00 08/10/17 06:00 PT 11.4 Seconds (9.9-11.8) 08/04/17 18:30 INR 1.06 (0.93-1.08) 08/04/17 18:30 APTT 32.1 Seconds (23.7-30.8) H 08/04/17 18:30 Attending/Attestation - Attestation I have personally seen and examined this patient.: Yes I have fully participated in the care of the patient.: Yes I have reviewed all pertinent clinical information, including history, physical exam and plan: Yes
--- NOTE | 2017-08-07 15:29 | CP.PCM.PN ---
<Morro Boston - Last Filed: 08/07/17 15:25> Subjective - Date & Time of Evaluation Date of Evaluation: 08/07/17 Time of Evaluation: 15:25 - Subjective Subjective: Podiatry Progress Note - Dr. Caputo 72 year old female patient seen at bedside concerning bilateral lower leg redness with itchiness and pain, R>L. Patient seen with Dr. Jacob at time of visit. Patient states her pain to her legs has decreased however admits that her entire body is still itchy. Patient states she still has itchy, red patches all over her arms, stomach, and back. Patient states the Benadryl she was given only works for a couple hours. Patient denies N/V/F/D/C/SOB. No other pedal complaints at this time. Objective - Vital Signs/Intake and Output Vital Signs (last 24 hours): Temp Pulse Resp BP Pulse Ox 97.9 F 63 18 138/88 98 08/07/17 07:36 08/07/17 07:36 08/07/17 07:36 08/07/17 10:28 08/07/17 07:36 Intake and Output: 08/07/17 08/07/17 06:59 18:59 Intake Total 1355 Balance 1355 - Medications Medications: Current Medications Allopurinol (Zyloprim) 100 mg PO DAILY [facility] Last Admin: 08/07/17 10:28 Dose: 100 mg Amlodipine Besylate (Norvasc) 10 mg PO DAILY [facility] Last Admin: 08/07/17 10:28 Dose: 10 mg Arformoterol Tartrate (Brovana) 15 mcg IH [id number] [facility] Last Admin: 08/07/17 07:27 Dose: 15 mcg Atorvastatin Calcium (Lipitor) 40 mg PO HS [facility] Last Admin: 08/06/17 21:04 Dose: 40 mg Budesonide (Pulmicort Respules) 0.5 mg IH [id number] [facility] Last Admin: 08/07/17 07:27 Dose: 0.5 mg Clonidine HCl (Catapres) 0.3 mg PO BID [facility] Last Admin: 08/07/17 10:27 Dose: 0.3 mg Cyanocobalamin (Vitamin B12 1000 Mcg/Ml Inj) 1,000 mcg IM DAILY [facility] Stop: 08/15/17 10:01 Last Admin: 08/07/17 10:27 Dose: 1,000 mcg Desoximetasone (Topicort 0.25%) 0 ea TOP BID [facility] Folic Acid (Folic Acid) 1 mg PO DAILY [facility] Last Admin: 08/07/17 10:28 Dose: 1 mg Heparin Sodium (Porcine) (Heparin) 5,000 units SC Q8 CARLITOS PRN Reason: Protocol Last Admin: 08/07/17 13:15 Dose: 5,000 units Hydroxyzine HCl (Atarax) 25 mg PO Q6H PRN PRN Reason: Itching / Pruritus Ceftriaxone Sodium (Rocephin 1 Gram Ivpb) 1 gm in 100 mls @ 100 mls/hr IVPB DAILY [facility] PRN Reason: Protocol Stop: 08/13/17 10:36 Last Admin: 08/07/17 10:26 Dose: 100 mls/hr Lactic Acid (Lac-Hydrin 12% Cream (140 G)) 0 ea TOP TID [facility] Last Admin: 08/07/17 13:14 Dose: 1 applic Losartan Potassium (Cozaar) 100 mg PO DAILY [facility] Last Admin: 08/07/17 10:27 Dose: 100 mg Methimazole (Tapazole) 5 mg PO DAILY [facility] Last Admin: 08/07/17 10:27 Dose: 5 mg (Fluticasone/Vilanterol [Breo Ellipta 200-25 Mcg Inh] 1 Each) 1 each IH DAILY [facility] Last Admin: 08/07/17 10:28 Dose: Not Given Pantoprazole Sodium (Protonix Ec Tab) 40 mg PO ACB [facility] Last Admin: 08/07/17 08:23 Dose: 40 mg Potassium Chloride (K-Dur 20 Meq Er Tab) 20 meq PO BRK [facility] Last Admin: 08/07/17 08:23 Dose: 20 meq - Labs Labs: 08/07/17 06:51 08/07/17 06:51 PT 11.4 Seconds (9.9-11.8) 08/04/17 18:30 INR 1.06 (0.93-1.08) 08/04/17 18:30 APTT 32.1 Seconds (23.7-30.8) H 08/04/17 18:30 - Constitutional Appears: Well, Non-toxic, No Acute Distress - Extremities Exam Additional comments: VASC: DP and PT pulses palpable b/l. CFT wnl. TG warm to warm. Nonpitting edema noted to RLE. NEURO: Gross sensation intact bilaterally DERM: Erythema noted to bilateral LE extending from b/l knee to ankle joint. - Erythematous papules noted throughout b/l arms, chest, abdomen, back, thighs ORTHO: Tenderness to palpation right anterior tibia. Pain on palpation noted to left hallucal IPJ and medial nail groove. - Neurological Exam Neurological Exam: Alert, Awake, Oriented x3 - Psychiatric Exam Psychiatric exam: Normal Affect, Normal Mood Assessment and Plan - Assessment and Plan (Free Text) Assessment: 72 year old female with bilateral lower extremity cellulitis, resolving Plan: Patient seen and evaluated with attending, Dr. Caputo Chart, vitals, labs reviewed = afebrile, leukocytosis 11.8 Continue Topicort ointment to bilateral LE pruritus BID Benadryl prn pruritis Per ID, continue Rocephin (day 3) Podiatry will continue to follow while in house <Prashant Caputo - Last Filed: 08/10/17 11:37> Objective - Vital Signs/Intake and Output Vital Signs (last 24 hours): Temp Pulse Resp BP Pulse Ox 98.4 F 65 18 135/58 L 95 08/10/17 07:58 08/10/17 11:25 08/10/17 07:58 08/10/17 11:25 08/10/17 07:58 Intake and Output: 08/10/17 08/10/17 06:59 18:59 Intake Total 780 540 Output Total 0 Balance 780 540 - Medications Medications: Current Medications Allopurinol (Zyloprim) 100 mg PO DAILY [facility] Last Admin: 08/10/17 11:25 Dose: 100 mg Amlodipine Besylate (Norvasc) 10 mg PO DAILY [facility] Last Admin: 08/10/17 11:25 Dose: 10 mg Arformoterol Tartrate (Brovana) 15 mcg IH [id number] [facility] Last Admin: 08/10/17 07:52 Dose: 15 mcg Atorvastatin Calcium (Lipitor) 40 mg PO HS [facility] Last Admin: 08/09/17 22:03 Dose: 40 mg Budesonide (Pulmicort Respules) 0.5 mg IH [id number] [facility] Last Admin: 08/10/17 07:53 Dose: 0.5 mg Clonidine HCl (Catapres) 0.3 mg PO BID [facility] Last Admin: 08/10/17 11:25 Dose: 0.3 mg Cyanocobalamin (Vitamin B12 1000 Mcg/Ml Inj) 1,000 mcg IM DAILY [facility] Stop: 08/15/17 10:01 Last Admin: 08/10/17 11:24 Dose: 1,000 mcg Desoximetasone (Topicort 0.25%) 0 ea TOP BID [facility] Last Admin: 08/10/17 11:32 Dose: 1 applic Desoximetasone (Topicort 0.25%) 0 ea TOP BID [facility] Diphenhydramine HCl (Benadryl) 25 mg PO Q6 PRN PRN Reason: Itching / Pruritus Last Admin: 08/09/17 23:52 Dose: 25 mg Folic Acid (Folic Acid) 1 mg PO DAILY [facility] Last Admin: 08/10/17 11:29 Dose: 1 mg Heparin Sodium (Porcine) (Heparin) 5,000 units SC Q8 CARLITOS PRN Reason: Protocol Last Admin: 08/10/17 06:53 Dose: Not Given Lactic Acid (Lac-Hydrin 12% Cream (140 G)) 0 ea TOP TID [facility] Last Admin: 08/10/17 11:36 Dose: 1 applic Losartan Potassium (Cozaar) 100 mg PO DAILY [facility] Last Admin: 08/10/17 11:26 Dose: 100 mg Methimazole (Tapazole) 5 mg PO DAILY [facility] Last Admin: 08/10/17 11:24 Dose: 5 mg (Fluticasone/Vilanterol [Breo Ellipta 200-25 Mcg Inh] 1 Each) 1 each IH DAILY [facility] Last Admin: 08/09/17 10:02 Dose: Not Given Pantoprazole Sodium (Protonix Ec Tab) 40 mg PO ACBD [facility] Last Admin: 08/10/17 08:24 Dose: 40 mg Potassium Chloride (K-Dur 20 Meq Er Tab) 20 meq PO BRK [facility] Last Admin: 08/10/17 08:24 Dose: 20 meq Prednisone (Prednisone Tab) 40 mg PO ACB [facility] Stop: 08/11/17 07:31 Last Admin: 08/10/17 08:24 Dose: 40 mg Pyridoxine HCl (Vitamin B6 50 Mg Tab) 25 mg PO DAILY [facility] Last Admin: 08/10/17 11:24 Dose: 25 mg - Labs Labs: 08/10/17 06:00 08/10/17 06:00 PT 11.4 Seconds (9.9-11.8) 08/04/17 18:30 INR 1.06 (0.93-1.08) 08/04/17 18:30 APTT 32.1 Seconds (23.7-30.8) H 08/04/17 18:30 Attending/Attestation - Attestation I have personally seen and examined this patient.: Yes I have fully participated in the care of the patient.: Yes I have reviewed all pertinent clinical information, including history, physical exam and plan: Yes
--- NOTE | 2017-08-07 16:22 | PN ---
DATE: 08/07/2017 SUBJECTIVE: The patient is lying in bed, comfortable. She denies any further pain in her legs. She denies abdominal pain, nausea or vomiting. PHYSICAL EXAMINATION: VITAL SIGNS: Reveal temperature of 97.9, blood pressure 138/88, heart rate 63. HEENT: Reveal sclerae to be muddy, conjunctivae pale. NECK: Supple. CHEST: Reveal lungs to be clear. HEART: Reveals a regular rate and rhythm ABDOMEN: Soft, nontender, obese. EXTREMITIES: Show trace pedal edema. LABORATORY DATA: Revealed white blood cell count 11.8, hemoglobin 11.2. Chemistries reveal BUN 22, creatinine 1.5. AST, ALT, alk phos were all normal. CT scan of the abdomen and pelvis showed no masses in the GI tract to explain anemia. She does have gallstones and nonspecific thickening of the gallbladder wall. She is asymptomatic from these gallstones. IMPRESSION: A 72-year-old female admitted to the hospital with cellulitis of the lower extremities with chronic anemia. The patient did have an endoscopy and colonoscopy earlier this year with Dr. Doug Eastman. She also has chronic kidney disease and I suspect that her anemia is probably that of chronic disease. RECOMMENDATIONS: The patient can follow up with her primary migratory worker for her anemia. Tim Shepherd MD
[2017-08-07] MEDS: Desoximetasone 0.25% Cream(15 gm) TOP SCH (17:42)
[2017-08-07 19:44] LABS: Interpretation Negative (Negative)
--- NOTE | 2017-08-08 02:37 | PN ---
DATE: 08/07/2017 LOCATION: The patient is seen in room 560, bed 2. SUBJECTIVE: The patient is seen lying in the bed. Overnight nurse's notes were reviewed.. The patient did complain of some itching of the legs. The patient was given Benadryl and Vistaril for the itching. The patient was seen resting in the bed. The patient completed blood transfusion 2 units yesterday. The patient's 13-system review was done, pertinent positive and negative dictated above. PHYSICAL EXAMINATION: VITAL SIGNS: T-max is afebrile in the last 24 hours. Heart rate is 67, 68, and 63. Blood pressure is ranging from 140/56 last 24 hours blood pressure 138/88, 141/66, 128/55, 123/58. O2 sat 98%. Respirations 18. HEENT AND NECK: Head examination, normocephalic, atraumatic. HEENT examination shows pink conjunctivae. Anicteric sclerae. No oropharyngeal lesion. No neck rigidity. CHEST: Kyphosis. LUNGS: Examination shows no rales, crackles or wheezing. CARDIOVASCULAR: Shows S1, S2, regular rhythm. Questionable soft systolic murmur, left sternal border, right second intercostal space, left second intercostal space. ABDOMEN: Soft. Positive bowel sounds. GENITALIA: Female. RECTAL: Examination deferred. EXTREMITIES: Show decreasing edema of the lower extremity, but positive dry skin of the lower extremity, positive bilateral skin tenderness of the lower extremity. MUSCULOSKELETAL: Examination shows a body mass index as per the BMI. NEUROLOGIC: The patient's gait examination is not tested. Motor strength is 5/5 in lower extremity. Cranial nerves II-XII intact. DIAGNOSTICS: 08/07/2017; WBC 11.8, hemoglobin and hematocrit 11.2 and 32.4, platelet 266. Granulocytes, 74% segs. The patient's hemoglobin electrophoresis shows normal pattern.. Retic count was normal. ESR was 98. The patient's chemistry; sodium 144, potassium 4.3, chloride 113, CO2 of 21, anion gap 14, BUN 22, creatinine 1.5, GFR 41, glucose 93, calcium 9.1, magnesium is 1.7. LFTs are normal. Homocysteine is 20.3. Blood cultures, no growth. The patient received 3 units of PRBCs, which she tolerated well. The patient was seen by Dr. Shepherd. The patient's CAT scan of the abdomen and pelvis was ordered, the results of which are available. CAT scan of the abdomen and pelvis shows bibasilar linear scar or atelectasis, small nonspecific low attenuation lesion in the left hepatic lobe with punctate calcification, diffusely thickened gallbladder wall and gallstone within the gallbladder lumen. Right kidney fluid density mass, likely renal cyst. Small umbilical hernia noted. On the CT scan, diffusely thickened gallbladder wall, cholelithiasis. The patient was seen by Dr. Shepherd, Dr. Blackman, and Dr. Molly Jacob. Patient's recommendations by all of the physicians involved was noted. The patient was evaluated by the surgical sales representative, awaiting recommendation by Dr. Molly Jacob. The patient was seen by Dr. Shepherd from GI. The patient was seen by Dr. Blackman from infectious disease. Recommendations were noted. His impression was to continue Rocephin and monitor clinical response. Podiatry recommendations were noted. IMPRESSION AND PLAN: 1. Bilateral lower extremity cellulitis. 2. Gallbladder wall thickening. 3. Bibasilar atelectasis and scar. 4. Nonspecific low-attenuation lesions of the left hepatic lobe with left hepatic lobe punctate calcification. 5. Diffusely thickened gallbladder wall with cholelithiasis. 6. Probable right renal cyst. 7. Small umbilical hernia. 8. Questionable cholecystitis. 9. Peripheral vascular disease. 10. Hypertension. 11. Microcytic iron deficiency anemia. 12. Vitamin B12 deficiency. 13. Fecal occult blood positive. 14. Proteinuria, microscopic hematuria, and bacteriuria. 15. Transient lactic acidosis. 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 17. Status post packed red blood cell transfusion x2 to 3. 18. Acute kidney injury with underlying chronic kidney disease stage III. 19. Questionable prediabetes versus diabetes with hemoglobin A1c of 6.6 and 6.7. 20. Hyperuricemia. 21. Deconditioning. 22. Gait dysfunction. 23. Peripheral arterial disease of the lower extremity. PLAN: At this time, the patient has been ordered serial labs. The patient's multiple labs are pending. Current consultation, gastroenterology, infectious disease, hematology and vascular surgery. Case referred to TCU case management. CURRENT MEDICATIONS: The patient is on Atarax 25 mg q.6 hours p.r.n., Brovana 15 mcg q.12 hours, Catapres 0.3 mg three twice a day, Cozaar 100 mg daily, Flonase nasal spray has been ordered. The patient was given Lasix 40 mg x1 because of some venous stasis. The patient is on Breo inhaler once a day, folic acid 1 mg daily, heparin 5000 units subcu q.8, K-Dur 20 mEq daily, Lac-Hydrin lotion to the lower extremities three times a day, Norvasc 10 mg daily, Protonix 40 mg daily, Pulmicort nebulizer 0.5 mg q.12 hours, Rocephin 1 g IV daily, Tapazole 5 mg daily, Topicort ointment to the lower extremity, vitamin B12 1000 mcg IM daily, and allopurinol 100 mg daily. The patient is on heart healthy diet. The patient has been recommended for out of bed, occupational therapy, physical therapy, repeat occult blood ordered. At present, the patient updated about her condition. The patient will be ordered ultrasound of the abdomen for evaluation of the gallstones. Depending upon the patient's ultrasound finding, if ultrasound is abnormal, the patient will be considered for HIDA scan. The patient's further management will be dependent upon the patient's clinical condition, hemodynamic status and as per the patient response to therapeutic intervention. The patient was updated about the details of her medical conditions which she acknowledged an understand. All questions concerned answered. The patient was encouraged out of bed to chair. Dictated and electronically signed, not read. Signing off Phil Vela MD
[2017-08-08 06:53] LABS: BASO # 0.02 K/mm3 (0.0-2.0); BASO % 0.1 % (0.0-3.0); EOS # 0.9 (0.0-0.7); EOS % 6.5 % (1.5-5.0); GRAN # 11.09 (1.4-6.5); HEMATOCRIT 34.3 % (36.0-48.0); LYMPH # 1.1 (1.2-3.4); MEAN CORPUSCULAR HEMOGLOBIN 29.1 pg (25.0-35.0); MEAN CORPUSCULAR HGB CONC 36.4 g/dl (31.0-37.0); MEAN PLATELET VOLUME 9.8 fl (7.0-11.0); MONO # 0.9 (0.1-0.6); MONO % 6.4 % (1.0-6.0); RED CELL DISTRIBUTION WIDTH 15.9 % (11.5-14.5)
[2017-08-08 07:10] LABS: ALB/GLOB RATIO 1.1 (1.1-1.8); BILIRUBIN,DIRECT 0.3 mg/dL (0.0-0.4); BILIRUBIN,TOTAL 0.5 mg/dL (0.2-1.3); CALCIUM 9.4 mg/dL (8.4-10.5); MAGNESIUM 1.5 mg/dL (1.7-2.2); POTASSIUM 4.2 mmol/L (3.6-5.0); TOTAL PROTEIN 7.3 g/dL (5.8-8.3)
--- NOTE | 2017-08-08 08:05 | CON ---
DATE: 08/07/2017 ADDENDUM The patient had been seen, history has been reviewed. The patient was examined. The only addendum on the leg is 2+ femoral and popliteal pulse, palpable left DP pulse, but the right DP is not palpable. There is no gangrene ulcer. We will need superficial peeling of the skin suggestive of resolving dermatitis. IMPRESSION: The patient had peripheral vascular disease, but she is totally asymptomatic from the standpoint of claudication or gangrene. No vascular intervention is indicated at this point. Molly Jacob MD
--- NOTE | 2017-08-08 08:32 | CP.PCM.PN ---
Subjective - Date & Time of Evaluation Date of Evaluation: 08/08/17 Time of Evaluation: 08:28 - Subjective Subjective: Surgery note for Dr. Jacob Patient seen and examined at bedside. Patient doing well today with no new complaints at this time. Patient says she thinks the swelling in her legs has decreased. She denies fever, chills, chest pain, SOB. Objective - Vital Signs/Intake and Output Vital Signs (last 24 hours): Temp Pulse Resp BP Pulse Ox 97.9 F 63 20 154/59 H 94 L 08/08/17 08:09 08/08/17 08:09 08/08/17 08:09 08/08/17 08:09 08/08/17 08:09 Intake and Output: 08/08/17 08/08/17 06:59 18:59 Intake Total 920 Balance 920 - Medications Medications: Current Medications Allopurinol (Zyloprim) 100 mg PO DAILY [facility] Last Admin: 08/07/17 10:28 Dose: 100 mg Amlodipine Besylate (Norvasc) 10 mg PO DAILY [facility] Last Admin: 08/07/17 10:28 Dose: 10 mg Arformoterol Tartrate (Brovana) 15 mcg IH [id number] [facility] Last Admin: 08/07/17 21:08 Dose: 15 mcg Atorvastatin Calcium (Lipitor) 40 mg PO HS [facility] Last Admin: 08/07/17 21:37 Dose: 40 mg Budesonide (Pulmicort Respules) 0.5 mg IH [id number] [facility] Last Admin: 08/07/17 21:08 Dose: 0.5 mg Clonidine HCl (Catapres) 0.3 mg PO BID [facility] Last Admin: 08/07/17 17:06 Dose: 0.3 mg Cyanocobalamin (Vitamin B12 1000 Mcg/Ml Inj) 1,000 mcg IM DAILY [facility] Stop: 08/15/17 10:01 Last Admin: 08/07/17 10:27 Dose: 1,000 mcg Desoximetasone (Topicort 0.25%) 0 ea TOP BID [facility] Last Admin: 08/07/17 17:42 Dose: 1 applic Diphenhydramine HCl (Benadryl) 25 mg PO Q8 PRN PRN Reason: Itching / Pruritus Last Admin: 08/08/17 01:23 Dose: 25 mg Folic Acid (Folic Acid) 1 mg PO DAILY [facility] Last Admin: 08/07/17 10:28 Dose: 1 mg Heparin Sodium (Porcine) (Heparin) 5,000 units SC Q8 [facility] PRN Reason: Protocol Last Admin: 08/08/17 06:58 Dose: 5,000 units Hydroxyzine HCl (Atarax) 25 mg PO Q6H PRN PRN Reason: Itching / Pruritus Ceftriaxone Sodium (Rocephin 1 Gram Ivpb) 1 gm in 100 mls @ 100 mls/hr IVPB DAILY [facility] PRN Reason: Protocol Stop: 08/13/17 10:36 Last Admin: 08/07/17 10:26 Dose: 100 mls/hr Magnesium Sulfate 2 gm/ Sodium (Chloride) 104 mls @ 102 mls/hr IVPB Q3H [facility] Stop: 08/08/17 12:17 Lactic Acid (Lac-Hydrin 12% Cream (140 G)) 0 ea TOP TID [facility] Last Admin: 08/07/17 17:07 Dose: 1 applic Losartan Potassium (Cozaar) 100 mg PO DAILY [facility] Last Admin: 08/07/17 10:27 Dose: 100 mg Methimazole (Tapazole) 5 mg PO DAILY [facility] Last Admin: 08/07/17 10:27 Dose: 5 mg (Fluticasone/Vilanterol [Breo Ellipta 200-25 Mcg Inh] 1 Each) 1 each IH DAILY [facility] Last Admin: 08/07/17 10:28 Dose: Not Given Pantoprazole Sodium (Protonix Ec Tab) 40 mg PO ACB [facility] Last Admin: 08/07/17 08:23 Dose: 40 mg Potassium Chloride (K-Dur 20 Meq Er Tab) 20 meq PO BRK [facility] Last Admin: 08/07/17 08:23 Dose: 20 meq - Labs Labs: 08/08/17 06:39 08/08/17 06:39 PT 11.4 Seconds (9.9-11.8) 08/04/17 18:30 INR 1.06 (0.93-1.08) 08/04/17 18:30 APTT 32.1 Seconds (23.7-30.8) H 08/04/17 18:30 - Constitutional Appears: Non-toxic, No Acute Distress - Head Exam Head Exam: NORMAL INSPECTION - Eye Exam Eye Exam: EOMI - ENT Exam ENT Exam: Mucous Membranes Moist - Respiratory Exam Respiratory Exam: NORMAL BREATHING PATTERN. absent: Accessory Muscle Use, Respiratory Distress - Cardiovascular Exam Cardiovascular Exam: REGULAR RHYTHM - Extremities Exam Extremities Exam: Normal Capillary Refill, Pedal Edema (1+ b/l ). absent: Calf Tenderness Additional comments: Pedal pulses present - Neurological Exam Neurological Exam: Alert, Awake - Psychiatric Exam Psychiatric exam: Normal Affect, Normal Mood - Skin Skin Exam: Dry, Warm Additional comments: skin dry and peeling in b/l LEs Assessment and Plan - Assessment and Plan (Free Text) Assessment: 72F with PAD, currently asymptomatic Plan: Continue medical management as per primary team No surgical intervention needed at this time Please re-consult as needed Will discuss with Dr. Cecil Fuchs, PGY-1
[2017-08-08] MEDS: Pantoprazole 40 mg EC Tab PO SCH (08:34)
[2017-08-08] MEDS: Arformoterol 15 mcg/2 ml Inh Sol IH SCH ×2 (09:00→21:11)
[2017-08-08] MEDS: Budesonide 0.5 mg/2 ml Inhal Susp UD IH SCH ×2 (09:01→21:11)
[2017-08-08] MEDS: cefTRIAXone 1 gm 1 GM/100 ML BAG IVPB SCH (09:16)
[2017-08-08] MEDS: Magnesium Sulfate 2 GM in Sodium Chloride 0.9% 100 ML IVPB SCH ×2 (09:16→12:51)
[2017-08-08] MEDS: Potassium Chloride 20 mEq ER Tab PO SCH (09:19)
[2017-08-08] MEDS: methIMAzole 5 MG TAB PO SCH (09:19)
[2017-08-08] MEDS: Desoximetasone 0.25% Cream(15 gm) TOP SCH ×2 (09:20→17:10)
[2017-08-08] MEDS: Ammonium Lactate 12% Cream (140 g) TOP SCH ×3 (09:20→17:10)
--- NOTE | 2017-08-08 10:32 | CP.PCM.PN ---
<LETHAXIAO - Last Filed: 08/08/17 11:58> Subjective - Date & Time of Evaluation Date of Evaluation: 08/08/17 Time of Evaluation: 10:28 - Subjective Subjective: Medicine Progress Note for Dr. Vela: Pt seen and examined at bedside. Pt denies any acute overnight events. Pt states that rash seems unchanged. Pt reports itching is still present and medications only temporarily resolve symptoms. Pt denies CP, SOB, n/v/d, fever, chills, abdominal pain, dysuria, polyuria, fatigue, or dizziness. Objective - Vital Signs/Intake and Output Vital Signs (last 24 hours): Temp Pulse Resp BP Pulse Ox 97.9 F 63 20 154/88 H 94 L 08/08/17 08:09 08/08/17 08:09 08/08/17 08:09 08/08/17 09:18 08/08/17 08:09 Intake and Output: 08/08/17 08/08/17 06:59 18:59 Intake Total 920 Balance 920 - Medications Medications: Current Medications Allopurinol (Zyloprim) 100 mg PO DAILY [facility] Last Admin: 08/08/17 09:19 Dose: 100 mg Amlodipine Besylate (Norvasc) 10 mg PO DAILY [facility] Last Admin: 08/08/17 09:18 Dose: 10 mg Arformoterol Tartrate (Brovana) 15 mcg IH [id number] [facility] Last Admin: 08/08/17 09:00 Dose: 15 mcg Atorvastatin Calcium (Lipitor) 40 mg PO HS [facility] Last Admin: 08/07/17 21:37 Dose: 40 mg Budesonide (Pulmicort Respules) 0.5 mg IH [id number] [facility] Last Admin: 08/08/17 09:01 Dose: 0.5 mg Clonidine HCl (Catapres) 0.3 mg PO BID [facility] Last Admin: 08/08/17 09:19 Dose: 0.3 mg Cyanocobalamin (Vitamin B12 1000 Mcg/Ml Inj) 1,000 mcg IM DAILY [facility] Stop: 08/15/17 10:01 Last Admin: 08/08/17 09:19 Dose: 1,000 mcg Desoximetasone (Topicort 0.25%) 0 ea TOP BID [facility] Last Admin: 08/08/17 09:20 Dose: 1 applic Diphenhydramine HCl (Benadryl) 25 mg PO Q8 PRN PRN Reason: Itching / Pruritus Last Admin: 08/08/17 01:23 Dose: 25 mg Folic Acid (Folic Acid) 1 mg PO DAILY [facility] Last Admin: 08/08/17 09:25 Dose: 1 mg Heparin Sodium (Porcine) (Heparin) 5,000 units SC Q8 [facility] PRN Reason: Protocol Last Admin: 08/08/17 06:58 Dose: 5,000 units Hydroxyzine HCl (Atarax) 25 mg PO Q6H PRN PRN Reason: Itching / Pruritus Ceftriaxone Sodium (Rocephin 1 Gram Ivpb) 1 gm in 100 mls @ 100 mls/hr IVPB DAILY [facility] PRN Reason: Protocol Stop: 08/13/17 10:36 Last Admin: 08/08/17 09:16 Dose: 100 mls/hr Magnesium Sulfate 2 gm/ Sodium (Chloride) 104 mls @ 102 mls/hr IVPB Q3H [facility] Stop: 08/08/17 12:17 Last Admin: 08/08/17 09:16 Dose: 102 mls/hr Lactic Acid (Lac-Hydrin 12% Cream (140 G)) 0 ea TOP TID [facility] Last Admin: 08/08/17 09:20 Dose: 1 applic Losartan Potassium (Cozaar) 100 mg PO DAILY [facility] Last Admin: 08/08/17 09:19 Dose: 100 mg Methimazole (Tapazole) 5 mg PO DAILY [facility] Last Admin: 08/08/17 09:19 Dose: 5 mg (Fluticasone/Vilanterol [Breo Ellipta 200-25 Mcg Inh] 1 Each) 1 each IH DAILY [facility] Last Admin: 08/08/17 09:19 Dose: Not Given Pantoprazole Sodium (Protonix Ec Tab) 40 mg PO ACB [facility] Last Admin: 08/08/17 08:34 Dose: Not Given Potassium Chloride (K-Dur 20 Meq Er Tab) 20 meq PO BRK [facility] Last Admin: 08/08/17 09:19 Dose: 20 meq - Labs Labs: 08/08/17 06:39 08/08/17 06:39 PT 11.4 Seconds (9.9-11.8) 08/04/17 18:30 INR 1.06 (0.93-1.08) 08/04/17 18:30 APTT 32.1 Seconds (23.7-30.8) H 08/04/17 18:30 - Constitutional Appears: No Acute Distress - Head Exam Head Exam: ATRAUMATIC, NORMOCEPHALIC - Eye Exam Eye Exam: EOMI, PERRL - ENT Exam ENT Exam: Mucous Membranes Moist - Neck Exam Neck Exam: Full ROM. absent: Lymphadenopathy, Tenderness, Thyromegaly - Respiratory Exam Respiratory Exam: Clear to Ausculation Bilateral. absent: Rales, Rhonchi, Wheezes - Cardiovascular Exam Cardiovascular Exam: RRR. absent: Gallop, Rubs, Murmur - GI/Abdominal Exam GI & Abdominal Exam: Soft. absent: Guarding, Tenderness, Hernia, Mass, Organomegaly, Rebound - Extremities Exam Additional comments: Rash noted on b/l UE and LE unchanged from yesterday. Some scaling on left LE. Mild TTP on LE b/l. Edema b/l LE 1+. Peripheral pulses intact. - Neurological Exam Neurological Exam: Alert, Awake, Oriented x3 - Psychiatric Exam Psychiatric exam: Normal Affect, Normal Mood - Skin Skin Exam: Dry, Intact, Rash, Warm Assessment and Plan - Assessment and Plan (Free Text) Assessment: 72 yo female with PMH of CAD with multiple stents, hyperlipidemia, HTN, COPD, and hyperthyroidism is being evaluated and treated for possible B/L LE cellulitis, iron deficiency anemia, and PAD. Plan: 1. B/L UE/LE cellultis - ID consulted Cont Ceftriaxone 1 gm IVPB day 4 F/U HIV test, stool for ova and parasites should get peripheral blood smear done - Benadryl PRN, hydroxyzine PRN for pruritis - US B/L LE negative - Procal WNL - Case referred for TCU and case management 2. Iron-deficiency Anemia - Heme consulted recommended Venofer daily - GI consulted for Iron def anemia and positive HOBT Anemia likely due to chronic kidney disease Endoscopic workup in January [address] Abdomen showed diffusely thickened GB wall, cholelithiasis - Transfused 3 units pRBC with appropriate response in H/H - Hgb 12..5 today - F/U H. pylori ag - F/U anemia workup Methylmalonic acid pending Homocysteine elevated B12 and Folate levels low normal - F/U autoimmune workup Anti-Sm, dsDNA Ab negative IF Ab, Anticentromere, Anti-Zara, ANITA pending 3. Peripheral Artery Disease - Vascular surgery consulted recs appreciated - Podiatry consulted recs appreciated - Arterial doppler US shows left THOM 0.6 and right THOM 0.81 - HA1c 6.6% - Left foot x-ray negative 4. Cholelithiasis, Potential Cholecystitis - CT Abdomen showed diffusely thickened GB wall, cholelithiasis - Abdominal US shows GB wall thickening 3.3 mm, normal CBD, potential cholecystitis - F/U HIDA scan 5. Acute Renal Injury, H/O CKD stage III - Cr 1.5 - Renal US showed medical renal disease - Cont to monitor - Avoid nephrotoxic medications 6. Hypomagnesmia - Mg 1.5 today - Replete with Mg Sulfate 2 gm IVPB - Cont to monitor 7. Hypokalemia, resolved - K-Dur 20 meq PO daily - Cont to monitor, replete as needed 8. Hyperuricemia - Cont Allopurinol 9. H/O HTN - Cont Norvasc, Cozaar, and Clonidine 10. H/O Dyslipidemia - Cont Lipitor 11. H/O COPD - Cont Brovana, Budesonide 12. H/O Hyperthyroidism - Cont Methimazole - TSH, Free T4 WNL GI/DVT PPx - Protonix - HSQ Pt seen and discussed in detail with Dr. Vela. Ivan Stokes PGY1 <Phil Vela U - Last Filed: 08/11/17 09:00> Objective - Vital Signs/Intake and Output Vital Signs (last 24 hours): Temp Pulse Resp BP Pulse Ox 98.4 F 65 18 135/58 L 95 08/10/17 07:58 08/10/17 11:25 08/10/17 07:58 08/10/17 11:25 08/10/17 07:58 - Labs Labs: 08/10/17 06:00 08/10/17 06:00 PT 11.4 Seconds (9.9-11.8) 08/04/17 18:30 INR 1.06 (0.93-1.08) 08/04/17 18:30 APTT 32.1 Seconds (23.7-30.8) H 08/04/17 18:30 Attending/Attestation - Attestation I have personally seen and examined this patient.: Yes I have fully participated in the care of the patient.: Yes I have reviewed all pertinent clinical information, including history, physical exam and plan: Yes
--- NOTE | 2017-08-08 10:49 | CP.PCM.PN ---
Subjective - Date & Time of Evaluation Date of Evaluation: 08/08/17 Time of Evaluation: 10:05 - Subjective Subjective: Comfortable, still with itching in her legs, also has rash on her torso. No fevers. Objective - Vital Signs/Intake and Output Vital Signs (last 24 hours): Temp Pulse Resp BP Pulse Ox 97.9 F 63 18 138/88 98 08/07/17 07:36 08/07/17 07:36 08/07/17 07:36 08/07/17 10:28 08/07/17 07:36 Intake and Output: 08/07/17 08/08/17 18:59 06:59 Intake Total 920 Balance 920 - Medications Medications: Current Medications Allopurinol (Zyloprim) 100 mg PO DAILY [facility] Last Admin: 08/07/17 10:28 Dose: 100 mg Amlodipine Besylate (Norvasc) 10 mg PO DAILY [facility] Last Admin: 08/07/17 10:28 Dose: 10 mg Arformoterol Tartrate (Brovana) 15 mcg IH [id number] [facility] Last Admin: 08/07/17 21:08 Dose: 15 mcg Atorvastatin Calcium (Lipitor) 40 mg PO HS [facility] Last Admin: 08/07/17 21:37 Dose: 40 mg Budesonide (Pulmicort Respules) 0.5 mg IH [id number] [facility] Last Admin: 08/07/17 21:08 Dose: 0.5 mg Clonidine HCl (Catapres) 0.3 mg PO BID [facility] Last Admin: 08/07/17 17:06 Dose: 0.3 mg Cyanocobalamin (Vitamin B12 1000 Mcg/Ml Inj) 1,000 mcg IM DAILY [facility] Stop: 08/15/17 10:01 Last Admin: 08/07/17 10:27 Dose: 1,000 mcg Desoximetasone (Topicort 0.25%) 0 ea TOP BID [facility] Last Admin: 08/07/17 17:42 Dose: 1 applic Diphenhydramine HCl (Benadryl) 25 mg PO Q8 PRN PRN Reason: Itching / Pruritus Last Admin: 08/08/17 01:23 Dose: 25 mg Folic Acid (Folic Acid) 1 mg PO DAILY [facility] Last Admin: 08/07/17 10:28 Dose: 1 mg Heparin Sodium (Porcine) (Heparin) 5,000 units SC Q8 [facility] PRN Reason: Protocol Last Admin: 08/07/17 21:36 Dose: 5,000 units Hydroxyzine HCl (Atarax) 25 mg PO Q6H PRN PRN Reason: Itching / Pruritus Ceftriaxone Sodium (Rocephin 1 Gram Ivpb) 1 gm in 100 mls @ 100 mls/hr IVPB DAILY [facility] PRN Reason: Protocol Stop: 08/13/17 10:36 Last Admin: 08/07/17 10:26 Dose: 100 mls/hr Lactic Acid (Lac-Hydrin 12% Cream (140 G)) 0 ea TOP TID [facility] Last Admin: 08/07/17 17:07 Dose: 1 applic Losartan Potassium (Cozaar) 100 mg PO DAILY [facility] Last Admin: 08/07/17 10:27 Dose: 100 mg Methimazole (Tapazole) 5 mg PO DAILY [facility] Last Admin: 08/07/17 10:27 Dose: 5 mg (Fluticasone/Vilanterol [Breo Ellipta 200-25 Mcg Inh] 1 Each) 1 each IH DAILY [facility] Last Admin: 08/07/17 10:28 Dose: Not Given Pantoprazole Sodium (Protonix Ec Tab) 40 mg PO ACB [facility] Last Admin: 08/07/17 08:23 Dose: 40 mg Potassium Chloride (K-Dur 20 Meq Er Tab) 20 meq PO BRK [facility] Last Admin: 08/07/17 08:23 Dose: 20 meq - Labs Labs: 08/07/17 06:51 08/07/17 06:51 PT 11.4 Seconds (9.9-11.8) 08/04/17 18:30 INR 1.06 (0.93-1.08) 08/04/17 18:30 APTT 32.1 Seconds (23.7-30.8) H 08/04/17 18:30 - Constitutional Appears: Non-toxic, No Acute Distress - Head Exam Head Exam: NORMAL INSPECTION - ENT Exam ENT Exam: Mucous Membranes Moist - Neck Exam Neck Exam: absent: Lymphadenopathy, Meningismus - Respiratory Exam Respiratory Exam: Decreased Breath Sounds - Cardiovascular Exam Cardiovascular Exam: +S1, +S2 - GI/Abdominal Exam GI & Abdominal Exam: Soft. absent: Tenderness Assessment and Plan - Assessment and Plan (Free Text) Plan: Assessment right leg cellulitis (mild), slowly improving Eosinophilia associated with skin rash, etiology to be determined HTN CAD S/P PCI history of bronchitis glaucoma history of hemorrhoids S/P hysterectomy Plan Continue Rocephin (day 4) and continue to monitor clinical response will check HIV test, stool for ova and parasites should get peripheral blood smear done discussed with Dr. Jessica
--- NOTE | 2017-08-08 11:33 | US ---
HISTORY: cholelithiasis COMPARISON: Abdomen pelvis CT without contrast 08/07/2017. TECHNIQUE: Sonographic evaluation of the abdomen. FINDINGS: LIVER: Measures 14.3 cm. Normal echogenicity of the liver parenchyma. No mass. No intrahepatic bile duct dilatation. GALLBLADDER: Limited cholelithiasis is identified in the dependent portion of gallbladder with mural thickening up to 3.3 mm. There is no sonographic Burch sign reported by the technologist, however, clinical correlation is advised for possible cholecystitis nevertheless. No perinephric fluid collection appreciated. . COMMON BILE DUCT: Measures 5.9 mm. No stones. No dilatation. PANCREAS: The tail of the pancreas is obscured by overlying bowel gas with remainder unremarkable appearing. RIGHT KIDNEY: Measures 9.1cm. Normal echogenicity. No calculus, mass, or hydronephrosis. LEFT KIDNEY: Measures 9.0cm. No gross pathology is appreciable however there is a poor acoustic window to the left kidney limiting its definition. SPLEEN: Normal in size and contour. No mass. AORTA: No aneurysmal dilatation. IVC: Unremarkable. OTHER FINDINGS: None. IMPRESSION: 1. Potential cholecystitis however clinical correlation is advised. Please see discussion above. 2. Normal caliber CBD as per above. 3. Partial imaging of the pancreas. 4. Remainder the examination appears grossly nonfocal.
--- NOTE | 2017-08-08 12:05 | PN ---
DATE: 08/08/2017 SUBJECTIVE: The patient was seen, done an ultrasound, having gallbladder ultrasound. She denies abdominal pain, nausea, vomiting. She denies any rectal bleeding. OBJECTIVE: VITAL SIGNS: Reveal temperature of 97.9, blood pressure 154/88, heart rate 63. ABDOMEN: Soft, nontender. EXTREMITIES: Show no edema. LABORATORY DATA: Revealed white blood cell count 14, hemoglobin 12.5. BUN 23, creatinine 1.5. AST 41, ALT 36. IMPRESSION: This is a 72-year-old female with anemia. The patient has improving blood count with IV Venofer and blood transfusions. There is no evidence of gastrointestinal bleeding. She did have endoscopy and colonoscopy about 6 months ago. The patient has asymptomatic gallstones and mild gallbladder thickening on CAT scan and ultrasound. There is no need for surgery at this time. She is admitted with cellulitis of the lower extremities. RECOMMENDATIONS: 1. Continue IV antibiotics. 2. No further GI workup planned at this time. Tim Shepherd MD
--- NOTE | 2017-08-08 14:06 | CP.PCM.PN ---
Subjective - Date & Time of Evaluation Date of Evaluation: 08/08/17 Time of Evaluation: 13:44 - Subjective Subjective: Podiatry Progress Note - Dr. Jessica 72 year old female patient seen at bedside for bilateral lower extremity dermatitis. Patient denies any acute events overnight. Patient states she has been putting Topicort cream to itchy areas twice a day, which has been helping. Patient is continuing to take Benadryl + Hydroxyzine, which only helps for a few hours. Patient believes redness is resolving. Patient admits to mild tenderness to right leg. Patient denies N/V/F/D/C/SOB. No other pedal complaints at this time. Objective - Vital Signs/Intake and Output Vital Signs (last 24 hours): Temp Pulse Resp BP Pulse Ox 97.9 F 63 20 154/88 H 94 L 08/08/17 08:09 08/08/17 08:09 08/08/17 08:09 08/08/17 09:18 08/08/17 08:09 Intake and Output: 08/08/17 08/08/17 06:59 18:59 Intake Total 920 Balance 920 - Medications Medications: Current Medications Allopurinol (Zyloprim) 100 mg PO DAILY [facility] Last Admin: 08/08/17 09:19 Dose: 100 mg Amlodipine Besylate (Norvasc) 10 mg PO DAILY [facility] Last Admin: 08/08/17 09:18 Dose: 10 mg Arformoterol Tartrate (Brovana) 15 mcg IH [id number] [facility] Last Admin: 08/08/17 09:00 Dose: 15 mcg Atorvastatin Calcium (Lipitor) 40 mg PO HS [facility] Last Admin: 08/07/17 21:37 Dose: 40 mg Budesonide (Pulmicort Respules) 0.5 mg IH [id number] [facility] Last Admin: 08/08/17 09:01 Dose: 0.5 mg Clonidine HCl (Catapres) 0.3 mg PO BID [facility] Last Admin: 08/08/17 09:19 Dose: 0.3 mg Cyanocobalamin (Vitamin B12 1000 Mcg/Ml Inj) 1,000 mcg IM DAILY [facility] Stop: 08/15/17 10:01 Last Admin: 08/08/17 09:19 Dose: 1,000 mcg Desoximetasone (Topicort 0.25%) 0 ea TOP BID [facility] Last Admin: 08/08/17 09:20 Dose: 1 applic Diphenhydramine HCl (Benadryl) 25 mg PO Q8 PRN PRN Reason: Itching / Pruritus Last Admin: 08/08/17 01:23 Dose: 25 mg Folic Acid (Folic Acid) 1 mg PO DAILY [facility] Last Admin: 08/08/17 09:25 Dose: 1 mg Heparin Sodium (Porcine) (Heparin) 5,000 units SC Q8 [facility] PRN Reason: Protocol Last Admin: 08/08/17 13:06 Dose: 5,000 units Hydroxyzine HCl (Atarax) 25 mg PO Q6H PRN PRN Reason: Itching / Pruritus Ceftriaxone Sodium (Rocephin 1 Gram Ivpb) 1 gm in 100 mls @ 100 mls/hr IVPB DAILY [facility] PRN Reason: Protocol Stop: 08/13/17 10:36 Last Admin: 08/08/17 09:16 Dose: 100 mls/hr Lactic Acid (Lac-Hydrin 12% Cream (140 G)) 0 ea TOP TID [facility] Last Admin: 08/08/17 13:07 Dose: 1 applic Losartan Potassium (Cozaar) 100 mg PO DAILY [facility] Last Admin: 08/08/17 09:19 Dose: 100 mg Methimazole (Tapazole) 5 mg PO DAILY [facility] Last Admin: 08/08/17 09:19 Dose: 5 mg (Fluticasone/Vilanterol [Breo Ellipta 200-25 Mcg Inh] 1 Each) 1 each IH DAILY [facility] Last Admin: 08/08/17 09:19 Dose: Not Given Pantoprazole Sodium (Protonix Ec Tab) 40 mg PO ACB [facility] Last Admin: 08/08/17 08:34 Dose: Not Given Potassium Chloride (K-Dur 20 Meq Er Tab) 20 meq PO BRK [facility] Last Admin: 08/08/17 09:19 Dose: 20 meq - Labs Labs: 08/08/17 06:39 08/08/17 06:39 PT 11.4 Seconds (9.9-11.8) 08/04/17 18:30 INR 1.06 (0.93-1.08) 08/04/17 18:30 APTT 32.1 Seconds (23.7-30.8) H 08/04/17 18:30 - Constitutional Appears: Well, Non-toxic, No Acute Distress - Extremities Exam Additional comments: VASC: DP and PT pulses palpable b/l. CFT wnl. TG warm to warm. Nonpitting edema noted to RLE. NEURO: Gross sensation intact bilaterally DERM: Erythema noted to bilateral LE extending from b/l knee to ankle joint, resolving. Diffuse scaling noted to b/l LE - Erythematous papules noted throughout b/l arms, chest, abdomen, back, thighs ORTHO: Tenderness to palpation right anterior tibia. Pain on palpation noted to left hallucal IPJ and medial nail groove. - Neurological Exam Neurological Exam: Alert, Awake, Oriented x3 - Psychiatric Exam Psychiatric exam: Normal Affect, Normal Mood Assessment and Plan - Assessment and Plan (Free Text) Assessment: 72 year old female patient with bilateral lower extremity dermatitis. Plan: Patient seen and evaluated with attending, Dr. Jessica Chart, vitals, labs reviewed = afebrile Continue BID application Topicort prn pruritis C/w Benadryl and hydroxyzine prn pruritis Per ID, continue Rocephin day 4 C/w daily application of LacHydrin Podiatry will continue to follow while in house
[2017-08-09 00:47] LABS: INTRINSIC FACTOR BLOCK AB Negative (Negative)
--- NOTE | 2017-08-09 02:29 | PN ---
DATE: 08/08/2017 HISTORY OF PRESENT ILLNESS: The patient is seen between the hours of 11:00 a.m., 12 noon. The patient is seen again lying in the bed. The patient is alert, awake, responsive. PHYSICAL EXAMINATION: VITAL SIGNS: T-max afebrile; heart rate 60-61; blood pressure 154/59, 154/88; respirations 20 and O2 sat 95%. Intake and output not documented. HEAD: Examination normocephalic, atraumatic. HEENT examination shows pink conjunctivae. Anicteric sclerae. No oropharyngeal lesion. NECK: No neck rigidity. CHEST: Examination kyphosis. LUNGS: Examination shows no rales, crackles or wheezing. CARDIOVASCULAR: Shows S1, S2, regular rhythm. Questionable soft systolic murmur, right second intercostal space, left sternal border, left second intercostal space. ABDOMEN: Soft. Positive bowel sounds. GENITALIA: Female. RECTAL: Examination is deferred. EXTREMITY: Shows positive slight erythema of the bilateral lower extremity, tender to touch. MUSCULOSKELETAL: Examination shows a body mass index of 24. Cranial nerves II-XII limited. Gait examination is not tested. VASCULAR: Examination palpate pulses with decreased pulses. PSYCHIATRIC: Examination is negative. DIAGNOSTICS: August 08: WBC 14.0, hemoglobin/hematocrit 12.5/34.3, platelet 262. Granulocytes 79% segs, ESR is 69, down from 98. Sodium 142, potassium 4.2, chloride 108, CO2 of 23, anion gap 15, BUN 23, creatinine 1.5, GFR 41, glucose 104, calcium 9.4, magnesium 1.5, AST 41, rest of the LFTs are normal. Homocysteine is 20.3. Stool occult blood positive x2. Serum immunofixation is positive for IgG kappa and lambda band against dense polyclonal background. Blood cultures negative. Abdominal ultrasound was noted. Ultrasound shows cholelithiasis with mural thickening up to 3.3 mm. EKG shows sinus rhythm, hypertensive cardiovascular disease with questionable lateral coronary ischemic changes. IMPRESSION: 1. Bilateral lower extremity slow resolving cellulitis. 2. Asymptomatic bilateral lower extremity peripheral vascular disease. 3. Bilateral lower extremity cellulitis, right more than the left. 4. Eosinophilia with bilateral lower extremity skin rash. 5. Hypertension. 6. Leukocytosis with granulocytosis. 7. Elevated erythrocyte sedimentation rate of 98 and 69. 8. Status post packed red blood cell transfusion. 9. Transient lactic acidosis. 10. Hypomagnesemia. 11. Acute kidney injury with underlying chronic kidney disease. 12. Hyperhomocysteinemia. 13. Iron-deficiency anemia. 14. Prediabetes with hemoglobin A1c of 6.6. 15. Microscopic hematuria, proteinuria, bacteriuria. 16. Fecal occult blood positive. 17. IgG kappa and lambda faint bands with polyclonal background versus questionable polyclonal gammopathy. 18. Status post packed red blood cell transfusion x3. 19. Cholelithiasis with gallbladder mural thickening of 3.3 mm. 20. Left ventricular hypertrophy with hypertensive cardiovascular disease and lateral T-wave changes. 21. Bilateral lower extremity peripheral vascular disease and peripheral arterial disease. 22. Bilateral lower extremity dermatitis cellulitis. 23. History of hypertension, history of hyperthyroidism, history of asthma and chronic obstructive pulmonary disease. 24. Hypokalemia. 25. Dyslipidemia. 26. History of hyperthyroidism. 27. Vitamin B12 deficiency. PLAN: At this time, the patient has been ordered CMP, LFT, magnesium. The patient's ANITA anticentromere antibody, H. Pylori, HIV is ordered which is pending. Protein electrophoresis. The patient has been ordered ova and parasite. Consultation with Dr. Shepherd from GI; Dr. Rosales, infectious disease; Dr. Valdovinos from Hematology/Oncology; Dr. Jessica from Podiatry; Dr. Jacob from vascular. The patient's case referred to TCU and case management. Current medication; Benadryl 25 mg q.8. p.r.n., Brovana 15 mcg q.12, clonidine 0.3 mg twice a day, Cozaar 100 mg daily, Breo Ellipta 1 inhalation daily, folic acid 1 mg daily, heparin 5000 subQ q.8., K-Dur 20 mEq daily, Lac-Hydrin lotion to both feet and legs 3 times a day, Lipitor 40 mg daily, Norvasc 10 mg daily, Protonix 40 mg daily, Pulmicort nebulizer 0.5 mg q.12., Rocephin 1 g IV daily, Tapazole 5 mg daily, Topicort ointment to lower extremity twice a day, vitamin B12 1000 mcg IM daily, allopurinol 100 mg daily. The patient has been ordered HIDA scan. The patient has been ordered out-of-bed, physical therapy, occupational therapy. The patient seen by physical therapist. Their recommendation is continue PT, TCU versus home with services. The patient at this time is to be continued on above therapeutic intervention. The patient seen by Gastroenterology, Infectious Disease, and Podiatry, their recommendations noted and explained to the patient. The patient is to be continued on Rocephin, monitoring clinical response. Infectious disease ordered HIV and stool for ova and parasite. Dictated and electronically signed, not read. Phil Vela MD
[2017-08-09 06:24] LABS: BASO # 0.01 K/mm3 (0.0-2.0); BASO % 0.1 % (0.0-3.0); EOS % 8.2 % (1.5-5.0); GRAN # 9.13 (1.4-6.5); GRAN % 73.5 % (50.0-68.0); HEMATOCRIT 36.1 % (36.0-48.0); LYMPH # 1.6 (1.2-3.4); LYMPH % 12.9 % (22.0-35.0); MEAN CELL VOLUME 81.9 fl (80.0-105.0); MEAN CORPUSCULAR HEMOGLOBIN 27.4 pg (25.0-35.0); MEAN CORPUSCULAR HGB CONC 33.5 g/dl (31.0-37.0); MEAN PLATELET VOLUME 9.7 fl (7.0-11.0); MONO # 0.7 (0.1-0.6); MONO % 5.3 % (1.0-6.0); RED CELL DISTRIBUTION WIDTH 16.1 % (11.5-14.5); WHITE BLOOD COUNT 12.4 10^3/ul (4.5-11.0)
[2017-08-09 07:17] LABS: BILIRUBIN,DIRECT 0.3 mg/dL (0.0-0.4); BILIRUBIN,TOTAL 0.3 mg/dL (0.2-1.3); CALCIUM 9.4 mg/dL (8.4-10.5); MAGNESIUM 2.3 mg/dL (1.7-2.2); POTASSIUM 4.1 mmol/L (3.6-5.0); TOTAL PROTEIN 7.1 g/dL (5.8-8.3)
[2017-08-09] MEDS: Budesonide 0.5 mg/2 ml Inhal Susp UD IH SCH ×2 (07:26→19:54)
[2017-08-09] MEDS: Arformoterol 15 mcg/2 ml Inh Sol IH SCH ×2 (07:26→19:54)
[2017-08-09 08:53] LABS: BETA 1 GLOBULIN 0.5 g/dL (0.4-0.6); BETA 2 GLOBULIN 0.5 g/dL (0.2-0.5); GAMMA GLOBULIN 1.3 g/dL (0.8-1.7)
[2017-08-09 09:41] LABS: IRON 84 ug/dL (45-180)
[2017-08-09] MEDS: cefTRIAXone 1 gm 1 GM/100 ML BAG IVPB SCH (10:00)
[2017-08-09] MEDS: methIMAzole 5 MG TAB PO SCH (10:01)
[2017-08-09] MEDS: Pantoprazole 40 mg EC Tab PO SCH ×2 (10:01→17:08)
[2017-08-09] MEDS: Potassium Chloride 20 mEq ER Tab PO SCH (10:01)
[2017-08-09] MEDS: Desoximetasone 0.25% Cream(15 gm) TOP SCH ×2 (10:02→17:09)
[2017-08-09] MEDS: Ammonium Lactate 12% Cream (140 g) TOP SCH ×3 (10:02→17:09)
--- NOTE | 2017-08-09 11:07 | NM ---
PROCEDURE: Nuclear Medicine Hepatobiliary Scan HISTORY: ??CHOLECYSTITIS COMPARISON: Abdomen pelvis CT examination with contrast 08/07/2017. TECHNIQUE: 6.1 mCi of technetium 99m Mebrofenin was administered intravenously. Planar images of the abdomen were obtained at 5 min intervals to 60 mins. Delayed images were also obtained. FINDINGS: LIVER: Timely and homogenous uptake. COMMON BILE DUCT: identified at 15 mins. GALLBLADDER: identified at 45 mins. SMALL BOWEL: Identified at 15 mins. IMPRESSION: Normal Hepatobiliary Scan. The cystic and common bile ducts appear patent although the gallbladder is not identified until approximately 45 minutes post isotope administration.
--- NOTE | 2017-08-09 12:12 | PN ---
DATE: 08/09/2017 The patient is walking around in her room. She denies any abdominal pain, nausea, vomiting, rectal bleeding or melena. Vital signs: Reveal temperature of 98, blood pressure 145/88, heart rate 59. Abdomen is softly distended, nontender. No mass. LABORATORY DATA: Reveal white blood cell count 12.4, hemoglobin 12.1, BUN 24, creatinine 1.5. IMPRESSION AND PLAN: A 72-year-old female with chronic anemia with anemia secondary to chronic disease. She does have chronic kidney disease. The patient was incidentally found to have gallstones and nonspecific gallbladder wall thickening on CT scan and ultrasound. She is asymptomatic for this. There is no need for cholecystectomy at this time. Recommendations are the patient is stable from a GI standpoint can be followed up as an outpatient. Thank you. Tim Shepherd MD
--- NOTE | 2017-08-09 13:49 | CP.PCM.PN ---
<XIAO STOKES - Last Filed: 08/09/17 13:46> Subjective - Date & Time of Evaluation Date of Evaluation: 08/09/17 Time of Evaluation: 13:46 - Subjective Subjective: Medicine Progress Note for Dr. Vela: Pt seen and examined at bedside. Pt denies any acute overnight events. Pt states that she still feels itchy and rash appears about the same. Pt denied CP , SOB, n/v/d, fever, chills, abdominal pain, dysuria, fatigue, and dizziness. Objective - Vital Signs/Intake and Output Vital Signs (last 24 hours): Temp Pulse Resp BP Pulse Ox 98.0 F 59 L 20 145/88 96 08/09/17 07:30 08/09/17 07:30 08/09/17 07:30 08/09/17 10:01 08/09/17 07:30 Intake and Output: 08/09/17 08/09/17 06:59 18:59 Intake Total 640 Balance 640 - Medications Medications: Current Medications Allopurinol (Zyloprim) 100 mg PO DAILY [facility] Last Admin: 08/09/17 10:02 Dose: 100 mg Amlodipine Besylate (Norvasc) 10 mg PO DAILY [facility] Last Admin: 08/09/17 10:01 Dose: 10 mg Arformoterol Tartrate (Brovana) 15 mcg IH [id number] [facility] Last Admin: 08/09/17 07:26 Dose: Not Given Atorvastatin Calcium (Lipitor) 40 mg PO HS [facility] Last Admin: 08/08/17 21:58 Dose: 40 mg Budesonide (Pulmicort Respules) 0.5 mg IH [id number] [facility] Last Admin: 08/09/17 07:26 Dose: Not Given Clonidine HCl (Catapres) 0.3 mg PO BID [facility] Last Admin: 08/09/17 10:01 Dose: 0.3 mg Cyanocobalamin (Vitamin B12 1000 Mcg/Ml Inj) 1,000 mcg IM DAILY [facility] Stop: 08/15/17 10:01 Last Admin: 08/09/17 10:01 Dose: 1,000 mcg Desoximetasone (Topicort 0.25%) 0 ea TOP BID [facility] Last Admin: 08/09/17 10:02 Dose: 1 applic Diphenhydramine HCl (Benadryl) 25 mg PO Q6 PRN PRN Reason: Itching / Pruritus Last Admin: 08/09/17 10:01 Dose: 25 mg Folic Acid (Folic Acid) 1 mg PO DAILY [facility] Last Admin: 08/09/17 10:02 Dose: 1 mg Heparin Sodium (Porcine) (Heparin) 5,000 units SC Q8 CARLITOS PRN Reason: Protocol Last Admin: 08/09/17 13:23 Dose: Not Given Lactic Acid (Lac-Hydrin 12% Cream (140 G)) 0 ea TOP TID [facility] Last Admin: 08/09/17 13:23 Dose: 1 applic Losartan Potassium (Cozaar) 100 mg PO DAILY [facility] Last Admin: 08/09/17 10:02 Dose: 100 mg Methimazole (Tapazole) 5 mg PO DAILY [facility] Last Admin: 08/09/17 10:01 Dose: 5 mg (Fluticasone/Vilanterol [Breo Ellipta 200-25 Mcg Inh] 1 Each) 1 each IH DAILY [facility] Last Admin: 08/09/17 10:02 Dose: Not Given Pantoprazole Sodium (Protonix Ec Tab) 40 mg PO ACBD [facility] Last Admin: 08/09/17 10:01 Dose: 40 mg Potassium Chloride (K-Dur 20 Meq Er Tab) 20 meq PO BRK [facility] Last Admin: 08/09/17 10:01 Dose: 20 meq Prednisone (Prednisone Tab) 40 mg PO ACB [facility] Stop: 08/11/17 07:31 Last Admin: 08/09/17 10:01 Dose: 40 mg Pyridoxine HCl (Vitamin B6 50 Mg Tab) 25 mg PO DAILY [facility] Last Admin: 08/09/17 10:13 Dose: 25 mg - Labs Labs: 08/09/17 06:00 08/09/17 06:00 PT 11.4 Seconds (9.9-11.8) 08/04/17 18:30 INR 1.06 (0.93-1.08) 08/04/17 18:30 APTT 32.1 Seconds (23.7-30.8) H 08/04/17 18:30 - Constitutional Appears: No Acute Distress - Head Exam Head Exam: ATRAUMATIC, NORMOCEPHALIC - Eye Exam Eye Exam: EOMI, PERRL - ENT Exam ENT Exam: Mucous Membranes Moist - Neck Exam Neck Exam: Full ROM. absent: Lymphadenopathy, Tenderness, Thyromegaly - Respiratory Exam Respiratory Exam: Clear to Ausculation Bilateral. absent: Rales, Rhonchi, Wheezes - Cardiovascular Exam Cardiovascular Exam: RRR. absent: Diastolic murmur, Gallop, Rubs, Murmur - GI/Abdominal Exam GI & Abdominal Exam: Soft. absent: Distended, Guarding, Tenderness, Organomegaly, Rebound - Extremities Exam Extremities Exam: Pedal Edema Additional comments: Rash noted b/l UE and LE, scaling rash on b/l LE - Back Exam Back Exam: NORMAL INSPECTION - Neurological Exam Neurological Exam: Alert, Awake, Oriented x3 - Psychiatric Exam Psychiatric exam: Normal Affect, Normal Mood - Skin Skin Exam: Dry, Intact, Rash, Warm Assessment and Plan - Assessment and Plan (Free Text) Assessment: 72 yo female with PMH of CAD with multiple stents, hyperlipidemia, HTN, COPD, and hyperthyroidism is being evaluated and treated for possible B/L LE cellulitis, iron deficiency anemia, and PAD. Plan: 1. B/L UE/LE cellultis - ID consulted HIV negative F/U stool for ova and parasites should get peripheral blood smear done - Benadryl PRN, hydroxyzine PRN for pruritis - US B/L LE negative - Procal WNL - Case referred for TCU and case management 2. Iron-deficiency Anemia - Heme consulted recommended Venofer daily - GI consulted for Iron def anemia and positive HOBT Anemia likely due to chronic kidney disease Endoscopic workup in January 2017 normal Stable from GI standpoint, follow up outpatient - Transfused 3 units pRBC with appropriate response in H/H - Hgb stable - F/U H. pylori ag - Anemia workup Methylmalonic acid normal Homocysteine elevated B12 and Folate levels low normal - F/U autoimmune workup Anti-Sm, dsDNA Ab negative IF Ab, Anticentromere, Anti-Zara, ANITA pending 3. Peripheral Artery Disease - Vascular surgery consulted recs appreciated - Podiatry consulted recs appreciated - Arterial doppler US shows left THOM 0.6 and right THOM 0.81 - HA1c 6.6% - Left foot x-ray negative 4. Cholelithiasis, Potential Cholecystitis - CT Abdomen showed diffusely thickened GB wall, cholelithiasis - Abdominal US shows GB wall thickening 3.3 mm, normal CBD, potential cholecystitis - HIDA scan negative - GI consulted recommended outpatient follow up 5. Acute Renal Injury, H/O CKD stage III - Renal US showed medical renal disease - Cont to monitor - Avoid nephrotoxic medications 6. Hypomagnesmia, resolved - Mg 2.3 - Cont to monitor, replete as needed 7. Hypokalemia, resolved - K-Dur 20 meq PO daily - Cont to monitor, replete as needed 8. Hyperuricemia - Cont Allopurinol 9. H/O HTN - Cont Norvasc, Cozaar, and Clonidine 10. H/O Dyslipidemia - Cont Lipitor 11. H/O COPD - Cont Brovana, Budesonide 12. H/O Hyperthyroidism - Cont Methimazole - TSH, Free T4 WNL GI/DVT PPx - Protonix ACBD - HSQ Pt seen and discussed in detail with Dr. Vela. Ivan Stokes PGY1 <Phil Vela U - Last Filed: 08/11/17 09:00> Objective - Vital Signs/Intake and Output Vital Signs (last 24 hours): Temp Pulse Resp BP Pulse Ox 98.4 F 65 18 135/58 L 95 08/10/17 07:58 08/10/17 11:25 08/10/17 07:58 08/10/17 11:25 08/10/17 07:58 - Labs Labs: 08/10/17 06:00 08/10/17 06:00 PT 11.4 Seconds (9.9-11.8) 08/04/17 18:30 INR 1.06 (0.93-1.08) 08/04/17 18:30 APTT 32.1 Seconds (23.7-30.8) H 08/04/17 18:30 Attending/Attestation - Attestation I have personally seen and examined this patient.: Yes I have fully participated in the care of the patient.: Yes I have reviewed all pertinent clinical information, including history, physical exam and plan: Yes
[2017-08-09 16:51] VITALS: RESP 18
--- NOTE | 2017-08-09 19:33 | PN ---
DATE: 08/09/2017 SUBJECTIVE: The patient is seen upon her return from the HIDA scan. The patient is seen and examined, lying in the stretcher and then sitting up in the chair. The patient states that she still has some itching of the lower extremity and on examination, the patient's lower extremity edema and rash had significantly decreased with decreasing swelling of the lower extremity. REVIEW OF SYSTEMS: The patient's 13 system review was done, pertinent positive and negative dictated above. PHYSICAL EXAMINATION: GENERAL: The patient is seen sitting up in the chair. VITAL SIGNS: T-max is afebrile, heart rates 74, 86, 82. Respirations 18-20, O2 sat is mid to high 90%, blood pressure 134/86, 140/82, 126/84. HEENT: Head: Examination normocephalic, atraumatic. Eyes: Examination shows pink conjunctivae. Anicteric sclerae. No oropharyngeal lesion. NECK: No neck rigidity. CHEST: Kyphosis. LUNGS: Shows no rales, crackles, or wheezing. CARDIOVASCULAR: S1, S2, regular rhythm. Questionable soft systolic murmur, right second intercostal space left sternal border, left intercostal space. ABDOMEN: Soft. Positive bowel sounds. Nontender. GENITALIA: Female. ECTAL: Examination is deferred. EXTREMITIES: Shows no pitting edema of the lower extremity. Dry skin of the lower extremity with decreasing erythema of the lower extremity noted. The patient's lower extremity skin is c d still operator to touch. DIAGNOSTICS: CBC, chemistry reviewed. The patient's HIDA scan is available now which is negative for cystic duct obstruction. The patient's HIDA scan is normal. The patient's ANITA was noted to be negative. The patient was found to be hypokalemic and hypomagnesemic. The patient was seen by Infectious Disease, Gastroenterology, Vascular Surgery. Their recommendations were noted and reinforced to the patient. IMPRESSION: 1. Bilateral lower extremity pleuritic cellulitis (resolving right more than the left). 2. Elevated erythrocyte sedimentation rate of greater than 60 and greater than 90. 3. Hypertension. 4. Microcytic anemia, status post packed red blood cells transfusion x3. 5. 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 6. History of coronary artery disease. 7. Asymptomatic peripheral arterial disease of the lower extremity. 8. Hypertension. 9. Chronic obstructive pulmonary disease and asthma. PLAN: At this time, the patient is still on IV antibiotic as per Infectious Disease. The patient will be considered for discharge once cleared by Infectious Disease, Gastroenterology, and Vascular Surgery. As mentioned, the patient will be considered for discharge once cleared by all the above specialty. The patient is still on IV antibiotics at present. The patient's medications and MAR reviewed. The patient's electrolytes were corrected and supplemented where indicated. The patient has been also started on low-dose steroids because of eosinophilia, which was noted on the CBC. The patient is to be continued on above therapeutic intervention. The patient's Infectious Disease recommendation, Gastroenterology recommendation, and Vascular Surgery recommendations from yesterday were reviewed. Today's recommendation from all above pending. The patient has been updated about her condition, diagnosis, and treatment plan at length. All questions concerned answered. The patient was advised that if the patient's IV antibiotic is stopped and if the patient's HIDA scan is negative, the patient will be considered for discharge very soon. Dictated and electronically signed, not read. Phil Vela MD
[2017-08-09 19:44] LABS: Interpretation Negative (Negative)
[2017-08-10 06:30] LABS: BASO # 0.02 K/mm3 (0.0-2.0); BASO % 0.1 % (0.0-3.0); EOS # 0.1 (0.0-0.7); EOS % 0.7 % (1.5-5.0); GRAN # 13.33 (1.4-6.5); GRAN % 85.2 % (50.0-68.0); HEMATOCRIT 32.7 % (36.0-48.0); LYMPH # 1.3 (1.2-3.4); LYMPH % 8.2 % (22.0-35.0); MEAN CELL VOLUME 82.6 fl (80.0-105.0); MEAN CORPUSCULAR HEMOGLOBIN 27.3 pg (25.0-35.0); MEAN PLATELET VOLUME 10.3 fl (7.0-11.0); MONO # 0.9 (0.1-0.6); MONO % 5.8 % (1.0-6.0); RED CELL DISTRIBUTION WIDTH 16.2 % (11.5-14.5); WHITE BLOOD COUNT 15.7 10^3/ul (4.5-11.0)
[2017-08-10 06:51] VITALS: TEMP 98.4
[2017-08-10 07:01] LABS: ALB/GLOB RATIO 1.1 (1.1-1.8); BILIRUBIN,DIRECT 0.3 mg/dL (0.0-0.4); BILIRUBIN,TOTAL 0.3 mg/dL (0.2-1.3); CALCIUM 9.4 mg/dL (8.4-10.5); POTASSIUM 4.5 mmol/L (3.6-5.0); TOTAL PROTEIN 7.3 g/dL (5.8-8.3)
[2017-08-10] MEDS: Arformoterol 15 mcg/2 ml Inh Sol IH SCH (07:52)
[2017-08-10] MEDS: Budesonide 0.5 mg/2 ml Inhal Susp UD IH SCH (07:53)
[2017-08-10 07:59] VITALS: BP 135/58; PULSE 65; O2SAT 95
[2017-08-10] MEDS: Pantoprazole 40 mg EC Tab PO SCH ×2 (08:24→16:37)
[2017-08-10] MEDS: Potassium Chloride 20 mEq ER Tab PO SCH (08:24)
[2017-08-10] MEDS: methIMAzole 5 MG TAB PO SCH (11:24)
[2017-08-10] MEDS: Desoximetasone 0.25% Cream(15 gm) TOP SCH ×4 (11:32→17:04)
[2017-08-10] MEDS: Ammonium Lactate 12% Cream (140 g) TOP SCH ×3 (11:36→17:03)
--- NOTE | 2017-08-10 12:08 | CP.PCM.PN ---
Subjective - Date & Time of Evaluation Date of Evaluation: 08/10/17 Time of Evaluation: 11:00 - Subjective Subjective: Comfortable, not in distress, less itching today, no leg pain. Objective - Vital Signs/Intake and Output Vital Signs (last 24 hours): Temp Pulse Resp BP Pulse Ox 98.4 F 65 18 135/58 L 95 08/10/17 07:58 08/10/17 07:58 08/10/17 07:58 08/10/17 07:58 08/10/17 07:58 Intake and Output: 08/10/17 08/10/17 06:59 18:59 Intake Total 780 Output Total 0 Balance 780 - Medications Medications: Current Medications Allopurinol (Zyloprim) 100 mg PO DAILY [facility] Last Admin: 08/09/17 10:02 Dose: 100 mg Amlodipine Besylate (Norvasc) 10 mg PO DAILY [facility] Last Admin: 08/09/17 10:01 Dose: 10 mg Arformoterol Tartrate (Brovana) 15 mcg IH [id number] [facility] Last Admin: 08/10/17 07:52 Dose: 15 mcg Atorvastatin Calcium (Lipitor) 40 mg PO HS [facility] Last Admin: 08/09/17 22:03 Dose: 40 mg Budesonide (Pulmicort Respules) 0.5 mg IH [id number] [facility] Last Admin: 08/10/17 07:53 Dose: 0.5 mg Clonidine HCl (Catapres) 0.3 mg PO BID [facility] Last Admin: 08/09/17 17:08 Dose: 0.3 mg Cyanocobalamin (Vitamin B12 1000 Mcg/Ml Inj) 1,000 mcg IM DAILY [facility] Stop: 08/15/17 10:01 Last Admin: 08/09/17 10:01 Dose: 1,000 mcg Desoximetasone (Topicort 0.25%) 0 ea TOP BID [facility] Last Admin: 08/09/17 17:09 Dose: 1 applic Diphenhydramine HCl (Benadryl) 25 mg PO Q6 PRN PRN Reason: Itching / Pruritus Last Admin: 08/09/17 23:52 Dose: 25 mg Folic Acid (Folic Acid) 1 mg PO DAILY [facility] Last Admin: 08/09/17 10:02 Dose: 1 mg Heparin Sodium (Porcine) (Heparin) 5,000 units SC Q8 [facility] PRN Reason: Protocol Last Admin: 08/10/17 06:53 Dose: Not Given Lactic Acid (Lac-Hydrin 12% Cream (140 G)) 0 ea TOP TID [facility] Last Admin: 08/09/17 17:09 Dose: 1 applic Losartan Potassium (Cozaar) 100 mg PO DAILY [facility] Last Admin: 08/09/17 10:02 Dose: 100 mg Methimazole (Tapazole) 5 mg PO DAILY [facility] Last Admin: 08/09/17 10:01 Dose: 5 mg (Fluticasone/Vilanterol [Breo Ellipta 200-25 Mcg Inh] 1 Each) 1 each IH DAILY [facility] Last Admin: 08/09/17 10:02 Dose: Not Given Pantoprazole Sodium (Protonix Ec Tab) 40 mg PO ACBD [facility] Last Admin: 08/10/17 08:24 Dose: 40 mg Potassium Chloride (K-Dur 20 Meq Er Tab) 20 meq PO BRK [facility] Last Admin: 08/10/17 08:24 Dose: 20 meq Prednisone (Prednisone Tab) 40 mg PO ACB [facility] Stop: 08/11/17 07:31 Last Admin: 08/10/17 08:24 Dose: 40 mg Pyridoxine HCl (Vitamin B6 50 Mg Tab) 25 mg PO DAILY [facility] Last Admin: 08/09/17 10:13 Dose: 25 mg - Labs Labs: 08/10/17 06:00 08/10/17 06:00 PT 11.4 Seconds (9.9-11.8) 08/04/17 18:30 INR 1.06 (0.93-1.08) 08/04/17 18:30 APTT 32.1 Seconds (23.7-30.8) H 08/04/17 18:30 - Constitutional Appears: Non-toxic, No Acute Distress - Head Exam Head Exam: NORMAL INSPECTION - ENT Exam ENT Exam: Mucous Membranes Moist - Neck Exam Neck Exam: absent: Meningismus - Respiratory Exam Respiratory Exam: Decreased Breath Sounds - Cardiovascular Exam Cardiovascular Exam: +S1, +S2 - GI/Abdominal Exam GI & Abdominal Exam: Soft. absent: Tenderness Assessment and Plan - Assessment and Plan (Free Text) Plan: Assessment S/P right leg cellulitis (mild), S/P treatment Eosinophilia associated with skin rash, etiology to be determined HTN CAD S/P PCI history of bronchitis glaucoma history of hemorrhoids S/P hysterectomy Plan S/P Rocephin HIV test is negative should get peripheral blood smear done would recommend further Hematology work up for eosinophilia should get stool for ova and parasites even as outpatient
--- NOTE | 2017-08-10 15:38 | CP.PCM.PN ---
<Morro Boston - Last Filed: 08/10/17 15:34> Subjective - Date & Time of Evaluation Date of Evaluation: 08/10/17 Time of Evaluation: 15:35 - Subjective Subjective: Podiatry Progress Note - Dr. Caputo 72 year old female patient seen at bedside for bilateral lower extremity dermatitis. Patient denies any acute events overnight. Patient admits to continuing use of Topicort and Lac Hydrin to itchy areas twice a day which alleviates her symptoms temporarily. Patient continues to take Benadryl which only alleviates symptoms for a couple hours. Patient states redness is resolving. Patient reports decreased pain to right leg. Patient denies N/V/F/D/C /SOB. No other pedal complaints at this time. Objective - Vital Signs/Intake and Output Vital Signs (last 24 hours): Temp Pulse Resp BP Pulse Ox 98.4 F 65 18 135/58 L 95 08/10/17 07:58 08/10/17 11:25 08/10/17 07:58 08/10/17 11:25 08/10/17 07:58 Intake and Output: 08/10/17 08/10/17 06:59 18:59 Intake Total 780 540 Output Total 0 Balance 780 540 - Medications Medications: Current Medications Allopurinol (Zyloprim) 100 mg PO DAILY [facility] Last Admin: 08/10/17 11:25 Dose: 100 mg Amlodipine Besylate (Norvasc) 10 mg PO DAILY [facility] Last Admin: 08/10/17 11:25 Dose: 10 mg Arformoterol Tartrate (Brovana) 15 mcg IH [id number] [facility] Last Admin: 08/10/17 07:52 Dose: 15 mcg Atorvastatin Calcium (Lipitor) 40 mg PO HS [facility] Last Admin: 08/09/17 22:03 Dose: 40 mg Budesonide (Pulmicort Respules) 0.5 mg IH [id number] [facility] Last Admin: 08/10/17 07:53 Dose: 0.5 mg Clonidine HCl (Catapres) 0.3 mg PO BID [facility] Last Admin: 08/10/17 11:25 Dose: 0.3 mg Cyanocobalamin (Vitamin B12 1000 Mcg/Ml Inj) 1,000 mcg IM DAILY [facility] Stop: 08/15/17 10:01 Last Admin: 08/10/17 11:24 Dose: 1,000 mcg Desoximetasone (Topicort 0.25%) 0 ea TOP BID [facility] Last Admin: 08/10/17 11:32 Dose: 1 applic Desoximetasone (Topicort 0.25%) 0 ea TOP BID [facility] Last Admin: 08/10/17 11:38 Dose: Not Given Diphenhydramine HCl (Benadryl) 25 mg PO Q6 PRN PRN Reason: Itching / Pruritus Last Admin: 08/09/17 23:52 Dose: 25 mg Folic Acid (Folic Acid) 1 mg PO DAILY [facility] Last Admin: 08/10/17 11:29 Dose: 1 mg Heparin Sodium (Porcine) (Heparin) 5,000 units SC Q8 CARLITOS PRN Reason: Protocol Last Admin: 08/10/17 14:51 Dose: Not Given Lactic Acid (Lac-Hydrin 12% Cream (140 G)) 0 ea TOP TID [facility] Last Admin: 08/10/17 14:50 Dose: Not Given Losartan Potassium (Cozaar) 100 mg PO DAILY [facility] Last Admin: 08/10/17 11:26 Dose: 100 mg Methimazole (Tapazole) 5 mg PO DAILY [facility] Last Admin: 08/10/17 11:24 Dose: 5 mg (Fluticasone/Vilanterol [Breo Ellipta 200-25 Mcg Inh] 1 Each) 1 each IH DAILY [facility] Last Admin: 08/10/17 11:37 Dose: Not Given Pantoprazole Sodium (Protonix Ec Tab) 40 mg PO ACBD [facility] Last Admin: 08/10/17 08:24 Dose: 40 mg Potassium Chloride (K-Dur 20 Meq Er Tab) 20 meq PO BRK [facility] Last Admin: 08/10/17 08:24 Dose: 20 meq Prednisone (Prednisone Tab) 40 mg PO ACB [facility] Stop: 08/11/17 07:31 Last Admin: 08/10/17 08:24 Dose: 40 mg Pyridoxine HCl (Vitamin B6 50 Mg Tab) 25 mg PO DAILY [facility] Last Admin: 08/10/17 11:24 Dose: 25 mg - Labs Labs: 08/10/17 06:00 08/10/17 06:00 PT 11.4 Seconds (9.9-11.8) 08/04/17 18:30 INR 1.06 (0.93-1.08) 08/04/17 18:30 APTT 32.1 Seconds (23.7-30.8) H 08/04/17 18:30 - Constitutional Appears: Well, Non-toxic, No Acute Distress - Extremities Exam Additional comments: VASC: DP and PT pulses palpable b/l. CFT wnl. TG warm to warm. Nonpitting edema noted to RLE. NEURO: Gross sensation intact bilaterally DERM: Erythema noted to bilateral LE extending from b/l knee to ankle joint, resolved. Diffuse scaling noted to b/l LE - Erythematous papules noted throughout b/l arms, chest, abdomen, back, thighs ORTHO: No tenderness to palpation RLE - Neurological Exam Neurological Exam: Alert, Awake, Oriented x3 - Psychiatric Exam Psychiatric exam: Normal Affect, Normal Mood Assessment and Plan - Assessment and Plan (Free Text) Assessment: 72 year old female patient with bilateral lower extremity dermatitis. Plan: Patient seen and evaluated Discussed with attending Dr. Caputo Chart, vitals, labs reviewed = afebrile Continue BID application Topicort prn pruritis C/w Benadryl and hydroxyzine prn pruritis C/w daily application of LacHydrin Podiatry will continue to follow while in house <Prashant Caputo - Last Filed: 08/10/17 18:51> Objective - Vital Signs/Intake and Output Vital Signs (last 24 hours): Temp Pulse Resp BP Pulse Ox 98.4 F 65 18 135/58 L 95 08/10/17 07:58 08/10/17 11:25 08/10/17 07:58 08/10/17 11:25 08/10/17 07:58 Intake and Output: 08/10/17 08/10/17 06:59 18:59 Intake Total 780 540 Output Total 0 Balance 780 540 - Labs Labs: 08/10/17 06:00 08/10/17 06:00 PT 11.4 Seconds (9.9-11.8) 08/04/17 18:30 INR 1.06 (0.93-1.08) 08/04/17 18:30 APTT 32.1 Seconds (23.7-30.8) H 08/04/17 18:30 Attending/Attestation - Attestation I have personally seen and examined this patient.: Yes I have fully participated in the care of the patient.: Yes I have reviewed all pertinent clinical information, including history, physical exam and plan: Yes
--- NOTE | 2017-08-10 23:11 | PN ---
GASTROENTEROLOGY PROGRESS NOTE DATE: 08/10/2017 SUBJECTIVE: The patient is walking around in her room. She denies any abdominal pain, nausea, vomiting, rectal bleeding, melena or abdominal pain. PHYSICAL EXAMINATION: VITAL SIGNS: Reveal temperature of 98.4, blood pressure 135/58, heart rate 65. ABDOMEN: Soft, nontender. LABORATORY DATA: Reveal white blood cell count 15.7, hemoglobin 10.8. Chemistries reveal chloride of 110 and bicarbonate 19, BUN 31, creatinine 1.5. AST, ALT, alk phos were all normal. IMPRESSION: This is a 72-year-old female admitted to the hospital with anemia which is most likely anemia of chronic disease. She does have chronic kidney disease. The patient was incidentally found to have gallstones and nonspecific thickened gallbladder wall on radiographic imaging including CAT scan and ultrasound. She is asymptomatic from the gallstones. The hepatobiliary scan was negative. RECOMMENDATIONS 1. Continue iron replacement. 2. Given the patient's advanced age and multiple comorbidities, would hold off on cholecystectomy at this time. 3. Follow serial hematocrits. Tim Shepherd MD
--- NOTE | 2017-08-12 14:08 | DS ---
PROGRESS NOTE AND DISCHARGE SUMMARY The patient was admitted by Dr. Luis, covering my service from August 03 onwards. The patient was seen and case was taken over on August 05. The patient was discharged after the patient was cleared by all subspecialty on 08/10/2017. The patient is seen out of the bed to chair in room #560 bed #2. PHYSICAL EXAMINATION: VITAL SIGNS: T-max afebrile, heart rate 65 to 66 to 63, blood pressure ranging from 147/88 to 133/54 to 135/58, respiration is 18, O2 sat is 96% to 95% to 98%. HEENT: Head examination is normocephalic and atraumatic. HEENT examination shows pale conjunctivae. Anicteric sclerae. No oropharyngeal lesion. NECK: No neck rigidity. CHEST EXAMINATION: Kyphosis. LUNGS EXAMINATION: Shows no rales, crackles or wheezing. CARDIOVASCULAR EXAMINATION: Shows S1 and S2, regular rhythm. Positive systolic murmur at left sternal border, right second intercostal space, left sternal border. GENITALIA: Female. RECTAL EXAMINATION: Deferred. EXTREMITIES: Show positive sensitive skin to touch and palpation. No calf tenderness noted. VASCULAR EXAMINATION: Palpable pulses. MUSCULOSKELETAL EXAMINATION: Shows a body mass index of 24. NEUROLOGIC: Cranial nerves II to XII intact. Gait examination is independent. DIAGNOSTICS: On August 10, WBC 15.7, hemoglobin and hematocrit of 10.8 and 32.7, platelet 239, granulocytes 85% segs. Sodium 141, potassium 4.1, chloride 110, CO2 of 19, anion gap 17, BUN 31, creatinine 1.5, GFR 41, glucose 119, calcium 9.4. Magnesium 2.0. Ferritin 610. LFTs are normal. Serum immunofixation positive for faint band, IgG, kappa and lambda with a portal polyclonal background. ANITA negative. Anti-Zara negative. Anti-Ayala negative. Double-stranded DNA negative. Anti- antibody, intrinsic factor, anticentromere negative. HIV nonreactive. Blood cultures no growth. Blood bank reports, 3 units packed red blood cell transfusion. The patient's HIDA scan was noted and explained to the patient. HIDA scan was negative. EKG was noted which shows left ventricular hypertrophy with ST changes in lateral leads. IMPRESSION AND PLAN: 1. Bilateral lower extremity superficial cellulitis versus venous stasis dermatitis. 2. Status post bilateral lower extremity, right more than the left, superficial cellulitis versus venous stasis dermatitis. 3. Eosinophilia. 4. Anemia of chronic disease. 5. Possible iron deficiency. 6. Asymptomatic cholelithiasis with thickened gallbladder wall. 7. Deconditioning. PLAN: At this time, the patient has been cleared by gastroenterology, infectious disease and podiatry for discharge. The patient's discharge medications which are sent to the [facility] are Topicort cream to the affected area twice a day, Benadryl 25 mg q. 8 p.r.n. or hydroxyzine p.r.n., Lac-Hydrin lotion to both leg and feet. The patient is also discharged on: 1. Allopurinol 100 mg daily. 2. Norvasc 10 mg daily. 3. Brovana nebulizer 15 mcg q. 12. 4. Clonidine 0.3 mg twice a day. 5. Topicort cream to the affected area twice a day. 6. Benadryl 25 mg q. 6. p.r.n. 7. Breo Ellipta 200/25 one puff daily. 8. Folic acid 1 mg daily. 9. Lasix 20 mg daily. 10. To resume Cozaar 100 mg daily. 11. Tapazole 5 mg daily. 12. Prilosec 20 mg daily or Protonix 40 mg daily as needed. 13. Vitamin B6 of 50 mg daily. 14. Crestor 10 mg at bedtime. The patient was discharged home. The patient was advised to follow up with Dr. Vela within 1 week with all medications. Time spent in the entire discharge process is 45 minutes. The patient was extensively explained about the details of her medical condition, diagnoses, treatment plan and management. Plan was explained to the patient at length on multiple occasions during this hospitalization. All questions concerned answered. Phil Vela MD
== END 2017-08-10 17:53 | disposition home or self-care (01) | DRG 603 ==
LOC: ED 17:42 → ERH 20:27 → 5RNO 21:28 → OBSVTOIN 08-06 15:19 → 5RNO 08-06 23:19
PROVIDERS: ADMIT Internal Medicine; ATTEND Internal Medicine
DX: L03.116 Cellulitis of left lower limb (principal); N17.9 Acute kidney failure, unspecified; E87.2 Acidosis; E11.52 Type 2 diabetes mellitus with diabetic peripheral angiopathy with gangrene; D72.1 Eosinophilia; E11.22 Type 2 diabetes mellitus with diabetic chronic kidney disease; I13.10 Hypertensive heart and chronic kidney disease without heart failure, with stage 1 through stage 4 chronic kidney disease, or unspecified chronic kidney disease; N18.3 Chronic kidney disease, stage 3 (moderate); J98.11 Atelectasis; N39.0 Urinary tract infection, site not specified; E83.42 Hypomagnesemia; E05.90 Thyrotoxicosis, unspecified without thyrotoxic crisis or storm; D63.8 Anemia in other chronic diseases classified elsewhere; D50.9 Iron deficiency anemia, unspecified; L03.115 Cellulitis of right lower limb; E53.8 Deficiency of other specified B group vitamins; E78.5 Hyperlipidemia, unspecified; E87.6 Hypokalemia; H40.9 Unspecified glaucoma; I08.3 Combined rheumatic disorders of mitral, aortic and tricuspid valves; I25.10 Atherosclerotic heart disease of native coronary artery without angina pectoris; I73.9 Peripheral vascular disease, unspecified; J43.9 Emphysema, unspecified; J44.9 Chronic obstructive pulmonary disease, unspecified; M47.9 Spondylosis, unspecified; M10.9 Gout, unspecified; L30.9 Dermatitis, unspecified; K04.5 Chronic apical periodontitis; K42.9 Umbilical hernia without obstruction or gangrene; K44.9 Diaphragmatic hernia without obstruction or gangrene; K57.30 Diverticulosis of large intestine without perforation or abscess without bleeding; K80.20 Calculus of gallbladder without cholecystitis without obstruction; N28.1 Cyst of kidney, acquired; R31.29 Other microscopic hematuria; Z79.899 Other long term (current) drug therapy; Z86.010 Personal history of colon polyps; F17.210 Nicotine dependence, cigarettes, uncomplicated; Z90.710 Acquired absence of both cervix and uterus; Z95.5 Presence of coronary angioplasty implant and graft; R53.81 Other malaise; M40.204 Unspecified kyphosis, thoracic region; R70.0 Elevated erythrocyte sedimentation rate; K59.00 Constipation, unspecified; K64.9 Unspecified hemorrhoids; M17.9 Osteoarthritis of knee, unspecified; M19.90 Unspecified osteoarthritis, unspecified site; E79.0 Hyperuricemia without signs of inflammatory arthritis and tophaceous disease